=== PATIENT | male | born 1950 | race Caucasian/White ===

== ENCOUNTER 2019-04-05 16:04 | Inpatient (IN) | payer MEDICARE, BC ==
[2019-04-05 17:32] LABS: Basophils # (A) 0.1 k/uL (0-0.2); Basophils % (A) 1 %; Eosinophils # (A) 0.5 k/uL (0-0.7); Eosinophils % (A) 5 %; HCT 50.4 % (39.0-53.0); HGB 16.7 gm/dL (13.0-17.5); Lymphocytes # (A) 1.7 k/uL (1.0-4.8); Lymphocytes % (A) 18 %; MCH 30.3 pg (25.0-35.0); MCHC 33.2 g/dL (31.0-37.0); MCV 91.3 fL (80.0-100.0); Mean Platelet Volume 7.1; Monocytes # (A) 0.7 k/uL (0-1.0); Monocytes % (A) 8 %; Neutrophils # (A) 6.2 k/uL (1.3-7.7); Neutrophils % (A) 65 %; Platelet Count 238 k/uL (150-450); RBC 5.52 m/uL (4.30-5.90); RDW 13.3 % (11.5-15.5); WBC 9.5 k/uL (3.8-10.6)
[2019-04-05 17:42] LABS: ALT 45 U/L (21-72); AST 29 U/L (17-59); Albumin 4.5 g/dL (3.5-5.0); Alkaline Phosphatase 59 U/L (38-126); Anion Gap 11 mmol/L; Blood Urea Nitrogen 15 mg/dL (9-20); Calcium 9.7 mg/dL (8.4-10.2); Carbon Dioxide 18 mmol/L (22-30); Chloride 109 mmol/L (98-107); Glucose 92 mg/dL (74-99); Potassium 4.4 mmol/L (3.5-5.1); Sodium 138 mmol/L (137-145); Total Bilirubin 0.7 mg/dL (0.2-1.3); Total Protein 7.5 g/dL (6.3-8.2)
[2019-04-05 17:51] LABS: INR 0.9 (<1.2); Prothrombin Time 9.7 sec (9.0-12.0)
[2019-04-05 17:55] LABS: Partial Thromboplastin Time 19.2 sec (22.0-30.0)
--- NOTE | 2019-04-05 18:42 | ED ---
General Adult HPI - General Chief complaint: Chest Pain Stated complaint: Chest pain/pressure Time Seen by Provider: 04/05/19 18:39 Source: patient, RN notes reviewed Mode of arrival: wheelchair Limitations: no limitations - History of Present Illness Initial comments: 69-year-old male presents to the emergency department for a chief complaint of chest pain and pressure. States that this has been ongoing for about 4 weeks however does come and go. Patient states the chest pain worsens with exertion. States he does have shortness of breath on exertion as well. States that he saw his primary care provider today about this who sent him to the ER. Patient also has been nauseous and has been feeling more tired than normal. Patient has been on amoxicillin for sore throat and congestion and does have a mild cough. Denies fevers or chills. Patient denies any history of hypertension or hyperlipidemia. Denies any personal cardiac history. He has a [id number] smoking history, denies history of COPD Patient's father did from a ND in hi s 60s. Patient has no other complaints at this time including abdominal pain, headache, or visual changes. - Related Data Home Medications Medication Instructions Recorded Confirmed Amoxic-Pot Clav 500-125 mg 1 tab PO BID 04/05/19 04/05/19 [Augmentin 500-125 mg] Allergies Allergy/AdvReac Type Severity Reaction Status Date / Time No Known Allergies Allergy Verified 04/05/19 19:01 Review of Systems ROS Statement: Those systems with pertinent positive or pertinent negative responses have been documented in the HPI. ROS Other: All systems not noted in ROS Statement are negative. Past Medical History Past Medical History: No Reported History Additional Past Medical History / Comment(s): diverticulitis History of Any Multi-Drug Resistant Organisms: None Reported Past Surgical History: Hernia Repair, Orthopedic Surgery Additional Past Surgical History / Comment(s): lt shoulder and lt knee Past Anesthesia/Blood Transfusion Reactions: No Reported Reaction Past Psychological History: No Psychological Hx Reported Smoking Status: Former smoker Past Alcohol Use History: Daily Past Drug Use History: None Reported - Past Family History Father Additional Family Medical History / Comment(s): none noted General Exam Limitations: no limitations General appearance: alert, in no apparent distress Head exam: Present: atraumatic, normocephalic, normal inspection Eye exam: Present: normal appearance, PERRL, EOMI. Absent: scleral icterus, conjunctival injection, periorbital swelling ENT exam: Present: normal exam, normal oropharynx (uvula midline ), mucous membranes moist, TM's normal bilaterally, normal external ear exam Neck exam: Present: normal inspection, full ROM. Absent: tenderness, meningismus, lymphadenopathy Respiratory exam: Present: decreased breath sounds (diminished bilat). Absent: respiratory distress, wheezes, rales, rhonchi, stridor Cardiovascular Exam: Present: regular rate, normal rhythm, normal heart sounds. Absent: systolic murmur, diastolic murmur, rubs, gallop, clicks GI/Abdominal exam: Present: soft, normal bowel sounds. Absent: distended, tenderness, guarding, rebound, rigid Neurological exam: Present: alert, oriented X3, CN II-XII intact Psychiatric exam: Present: normal affect, normal mood Course Vital Signs 04/05/19 04/05/19 04/05/19 16:17 19:48 19:53 Temperature 98.1 F Pulse Rate 65 56 L 57 L Respiratory 18 Rate Blood Pressure 127/82 O2 Sat by Pulse 96 Oximetry EKG Findings - EKG Comments: EKG Findings:: Sinus bradycardia, ventricular rate 59, HI interval 194, QTC 405 Medical Decision Making - Medical Decision Making 69-year-old male with a past medical history of diverticulitis presents to the emergency department for a chief complaint of chest pressure times one month. Pressure has been intermittent. Patient is not sure what makes this better or worse but does state that when he exerts it feels worse. States that now when he walks to the bathroom at home he is starting to feel the pressure and shortness of breath. Does also admit to nausea associated with this pressure. States he is beginning to feel more weak from it. States he also gets some shortness of breath on exertion. Patient does admit to a [id number] smoking history but denies any cardiac history or COPD. Saw his primary care provider who told him he should come to the emergency department. Patient also complaining of sore throat and feels that she has phlegm in his throat. States this has been however several months but he is supposed to follow-up with ENT for this and has been in contact with his primary care provider several times. On exam patient is well-appearing. He does not appear significantly short of breath. CBC and CMP are unremarkable. Troponin is negative. Patient is pain-free at this time resting comfortably in bed, heparin will not be started. However patient will be admitted for cardiology consult. Dr. Clark spoke with Dr. Marvin who accepts this admission. - Lab Data Result diagrams: 04/05/19 17:25 04/05/19 17:25 Lab Results 04/05/19 04/05/19 04/05/19 Range/Units 17:25 17:25 17:25 WBC 9.5 (3.8-10.6) k/uL RBC 5.52 (4.30-5.90) m/uL Hgb 16.7 (13.0-17.5) gm/dL Hct 50.4 (39.0-53.0) % MCV 91.3 (80.0-100.0) fL MCH 30.3 (25.0-35.0) pg MCHC 33.2 (31.0-37.0) g/dL RDW 13.3 (11.5-15.5) % Plt Count 238 (150-450) k/uL Neutrophils % 65 % Lymphocytes % 18 % Monocytes % 8 % Eosinophils % 5 % Basophils % 1 % Neutrophils # 6.2 (1.3-7.7) k/uL Lymphocytes # 1.7 (1.0-4.8) k/uL Monocytes # 0.7 (0-1.0) k/uL Eosinophils # 0.5 (0-0.7) k/uL Basophils # 0.1 (0-0.2) k/uL PT 9.7 (9.0-12.0) sec INR 0.9 (<1.2) APTT 19.2 L (22.0-30.0) sec Sodium 138 (137-145) mmol/L Potassium 4.4 (3.5-5.1) mmol/L Chloride 109 H (98-107) mmol/L Carbon Dioxide 18 L (22-30) mmol/L Anion Gap 11 mmol/L BUN 15 (9-20) mg/dL Creatinine 0.77 (0.66-1.25) mg/dL Est GFR (CKD-EPI)AfAm >90 (>60 ml/min/1.73 sqM) Est GFR (CKD-EPI)NonAf >90 (>60 ml/min/1.73 sqM) Glucose 92 (74-99) mg/dL Calcium 9.7 (8.4-10.2) mg/dL Total Bilirubin 0.7 (0.2-1.3) mg/dL AST 29 (17-59) U/L ALT 45 (21-72) U/L Alkaline Phosphatase 59 (38-126) U/L Troponin I (0.000-0.034) ng/mL Total Protein 7.5 (6.3-8.2) g/dL Albumin 4.5 (3.5-5.0) g/dL 04/05/19 Range/Units 17:25 WBC (3.8-10.6) k/uL RBC (4.30-5.90) m/uL Hgb (13.0-17.5) gm/dL Hct (39.0-53.0) % MCV (80.0-100.0) fL MCH (25.0-35.0) pg MCHC (31.0-37.0) g/dL RDW (11.5-15.5) % Plt Count (150-450) k/uL Neutrophils % % Lymphocytes % % Monocytes % % Eosinophils % % Basophils % % Neutrophils # (1.3-7.7) k/uL Lymphocytes # (1.0-4.8) k/uL Monocytes # (0-1.0) k/uL Eosinophils # (0-0.7) k/uL Basophils # (0-0.2) k/uL PT (9.0-12.0) sec INR (<1.2) APTT (22.0-30.0) sec Sodium (137-145) mmol/L Potassium (3.5-5.1) mmol/L Chloride (98-107) mmol/L Carbon Dioxide (22-30) mmol/L Anion Gap mmol/L BUN (9-20) mg/dL Creatinine (0.66-1.25) mg/dL Est GFR (CKD-EPI)AfAm (>60 ml/min/1.73 sqM) Est GFR (CKD-EPI)NonAf (>60 ml/min/1.73 sqM) Glucose (74-99) mg/dL Calcium (8.4-10.2) mg/dL Total Bilirubin (0.2-1.3) mg/dL AST (17-59) U/L ALT (21-72) U/L Alkaline Phosphatase (38-126) U/L Troponin I <0.012 (0.000-0.034) ng/mL Total Protein (6.3-8.2) g/dL Albumin (3.5-5.0) g/dL Disposition Clinical Impression: Chest pressure Disposition: ADMITTED IP TO THIS HOSP Condition: Fair Is patient prescribed a controlled substance at d/c from ED?: No Referrals: Lyle Garces MD [Primary Care Provider] - 1-2 days Time of Disposition: 21:02
[2019-04-05] MEDS ORDERED: IPRATROPIUM-ALBUTEROL 3 ML NEB INHALATION STA (18:56)
--- NOTE | 2019-04-05 20:37 | XR ---
EXAMINATION: XR chest 2V DATE AND TIME: 04/05/2019 7:16 PM CLINICAL INDICATION: PHH; Pain TECHNIQUE: Departmental protocol COMPARISON: 07/07/2010 FINDINGS: The lungs are clear. The pleural spaces are negative. The cardiac silhouette is mildly enlarged. The remainder of the mediastinal silhouette is unremarkabl e. The skeletal structures and soft tissues are negative for acute findings. IMPRESSION: NO ACUTE PROCESS.
[2019-04-05] MEDS ORDERED: ASPIRIN 325 MG TAB PO STA (20:43)
[2019-04-05] MEDS ORDERED: NITROGLYCERIN SL TABS 0.4 MG TAB SUBLINGUAL PRN (21:05)
[2019-04-06 07:32] LABS: Cholesterol 182 mg/dL (<200); HDL Cholesterol 43 mg/dL (40-60); LDL Cholesterol,Calculated 112 mg/dL (0-99); Triglycerides 135 mg/dL (<150)
[2019-04-06] MEDS ORDERED: AMINOPHYLLINE 500 MG/20 ML VIAL IV PRN (07:55)
[2019-04-06] MEDS ORDERED: CAFFEINE CITRATE 60 MG/3 ML VIAL IV PRN (07:55)
[2019-04-06] MEDS ORDERED: SODIUM CHLORIDE 0.9% IV ONE (08:00)
[2019-04-06] MEDS ORDERED: DIPYRIDAMOLE IV ONE (08:00)
--- NOTE | 2019-04-06 10:02 | P.CRDCN ---
History of Present Illness History of present illness: This is a pleasant 69-year-old male with no significant past medical history. He states he quit smoking cigarettes approximately 3 years ago. His father had his first cardiac event in his early 60s. He denies personal history of coronary artery disease, hypertension, dyslipidemia or diabetes mellitus. He has never seen a director instrumentation for any reason. We have been asked to see him in consultation secondary to chest discomfort and shortness of breath. He states for the previous 4-6 weeks he has noticed ongoing and increasing shortness of breath with exertion. He states he feels as though it's hard for him to get in a deep breath when he feels he needs one. This has been associated with increased fatigue and overall generalized weakness which is very abnormal for him. Then last week he started feeling a heavy pressure sensation in the midsternal region this pain in his chest was intermittent and not associated with exertion. He felt though the chest tightness, sometimes at rest when he was trying to catch his breath. He did have intermittent episodes of nausea with no vomiting. He denies any palpitations or dizziness. He also describes an odd sensation in the back of his throat he feels like he has increased mucous production and is unable to clear his throat. This has been going on for about 4-6 weeks he's been following with his primary care physician and been on a course of antibiotics but doesn't seem to be helping. He also states he has been under significant stress in the last few months as his has been diagnosed with lymphoma and started chemotherapy last week. EKG reveals sinus bradycardia heart rate of 59 nonspecific changes in the inferior leads. Chest x-ray is negative for an acute cardiopulmonary process. Laboratory data reviewed, WBC 9.5, hemoglobin 16.7, platelets 238, sodium 138, potassium 4.4, creatinine 0.77, cardiac enzymes negative 3, and T proBNP 48, LDL 112, HDL 43. He currently takes no cardiac medications. At the time of my exam: CONSTITUTIONAL: Denies fever. Denies chills. EYES: Denies blurred vision. Denies vision changes. Denies eye pain. EARS, NOSE, MOUTH & THROAT: Denies headache. Complains of sore throat. Denies ear pain. Complains of feeling something in the back of his throat like increased mucous. CARDIOVASCULAR: Denies chest pain. Complains of shortness of breath. Denies orthopnea. Denies PND. Denies palpitations. RESPIRATORY: Denies cough. GASTROINTESTINAL: Denies abdominal pain. Denies diarrhea. Denies constipation. Denies nausea. Denies vomiting. MUSCULOSKELETAL: Denies myalgias. INTEGUMENTARY: Denies pruitis. Denies rash. NEUROLOGIC: Denies numbness. Denies tingling. Denies weakness. PSYCHIATRIC: Denies anxiety. Denies depression. ENDOCRINE: Denies fatigue. Denies weight change. Denies polydipsia. Denies polyurina. GENITOURINARY: Denies burning, hematuria or urgency with micturation. HEMATOLOGIC: Denies history of anemia. Denies bleeding. Blood pressure 148/70 heart rate 58 afebrile maintaining oxygen saturation on nasal cannula GENERAL: This is a 69-year-old male in no apparent distress at the time of my examination. HEENT: Head is atraumatic, normocephalic. Pupils are equal, round. Sclerae anicteric. Conjunctivae are clear. Mucous membranes of the mouth are moist. Neck is supple. There is no jugular venous distention. No carotid bruit is heard. LUNGS: Clear to auscultation no wheezes, rales or rhonchi. No chest wall tenderness is noted on palpation or with deep breathing. HEART: Regular rate and rhythm without murmurs, rubs or gallops. S1 and S2 heard. ABDOMEN: Soft, nontender. Bowel sounds are heard. No organomegaly noted. EXTREMITIES: No evidence of peripheral edema and no calf tenderness noted. VASCULAR: Radial and dorsalis pedis pulses palpated, no evidence of clubbing. NEUROLOGIC: Patient is awake, alert and oriented x3. ASSESSMENT Chest pain and shortness of breath, an acute coronary event has been ruled out. Remote history of diverticulitis Former nicotine dependence, quit 3 years ago Daily alcohol intake PLAN An acute coronary event has been ruled out. Obtain 2-D echocardiogram and Doppler study to assess cardiac structure and function. Perform Persantine stress test to assess for reversible cardiac ischemia. Initiate on losartan 25 mg daily for optimal blood pressure control. Check ultrasound of the abdomen. Ongoing smoking cessation and alcohol cessation recommended. Consider possible anti-histamine for probable post-nasal drip. Further recommendations to follow. Thank you kindly for this consultation. Nurse Practitioner note has been reviewed, I agree with a documented findings and plan of care. Patient was seen and examined. Past Medical History Past Medical History: No Reported History Additional Past Medical History / Comment(s): diverticulitis History of Any Multi-Drug Resistant Organisms: None Reported Past Surgical History: Hernia Repair, Orthopedic Surgery Additional Past Surgical History / Comment(s): lt shoulder and lt knee Past Anesthesia/Blood Transfusion Reactions: No Reported Reaction Past Psychological History: No Psychological Hx Reported Smoking Status: Former smoker Past Alcohol Use History: Daily Past Drug Use History: None Reported - Past Family History Father Additional Family Medical History / Comment(s): none noted Medications and Allergies Home Medications Medication Instructions Recorded Confirmed Type Amoxic-Pot Clav 500-125 mg 1 tab PO BID 04/05/19 04/05/19 History [Augmentin 500-125 mg] Allergies Allergy/AdvReac Type Severity Reaction Status Date / Time No Known Allergies Allergy Verified 04/05/19 19:01 Physical Exam Vitals: Vital Signs Temp Pulse Resp BP Pulse Ox 04/06/19 03:00 50 L 11 L 104/65 95 04/06/19 02:30 30 H 103/57 95 04/06/19 02:00 53 L 12 118/79 91 L 04/06/19 01:30 56 L 20 122/83 95 04/06/19 01:00 58 L 20 118/62 93 L 04/06/19 00:30 54 L 16 118/80 93 L 04/06/19 00:00 63 30 H 114/65 96 04/05/19 23:30 7 L 103/79 96 04/05/19 23:00 52 L 13 118/81 95 04/05/19 22:30 55 L 8 L 109/58 94 L 04/05/19 22:00 56 L 5 L 123/75 95 04/05/19 21:36 67 18 131/108 95 04/05/19 21:30 56 L 16 95 04/05/19 21:10 58 L 16 111/83 94 L 04/05/19 20:50 57 L 16 138/92 94 L 04/05/19 20:30 64 15 140/88 96 04/05/19 19:53 57 L 04/05/19 19:50 54 L 17 135/87 98 04/05/19 19:48 56 L 04/05/19 19:30 57 L 13 127/87 92 L 04/05/19 19:10 57 L 14 156/92 04/05/19 19:00 60 15 151/107 93 L 04/05/19 16:17 98.1 F 65 18 127/82 96 Intake and Output 04/05/19 04/06/19 04/06/19 22:59 06:59 14:59 Other: Weight 114.305 kg Results 04/05/19 17:25 04/05/19 17:25 Cardiac Enzymes 04/05/19 04/05/19 04/06/19 Range/Units 17:25 17:25 00:21 AST 29 (17-59) U/L Troponin I <0.012 <0.012 (0.000-0.034) ng/mL Coagulation 04/05/19 Range/Units 17:25 PT 9.7 (9.0-12.0) sec APTT 19.2 L (22.0-30.0) sec Lipids 04/06/19 Range/Units 06:38 Triglycerides 135 (<150) mg/dL Cholesterol 182 (<200) mg/dL HDL Cholesterol 43 (40-60) mg/dL CBC 04/05/19 Range/Units 17:25 WBC 9.5 (3.8-10.6) k/uL RBC 5.52 (4.30-5.90) m/uL Hgb 16.7 (13.0-17.5) gm/dL Hct 50.4 (39.0-53.0) % Plt Count 238 (150-450) k/uL Comprehensive Metabolic Panel 04/05/19 Range/Units 17:25 Sodium 138 (137-145) mmol/L Potassium 4.4 (3.5-5.1) mmol/L Chloride 109 H (98-107) mmol/L Carbon Dioxide 18 L (22-30) mmol/L BUN 15 (9-20) mg/dL Creatinine 0.77 (0.66-1.25) mg/dL Glucose 92 (74-99) mg/dL Calcium 9.7 (8.4-10.2) mg/dL AST 29 (17-59) U/L ALT 45 (21-72) U/L Alkaline Phosphatase 59 (38-126) U/L Total Protein 7.5 (6.3-8.2) g/dL Albumin 4.5 (3.5-5.0) g/dL Current Medications Generic Name Dose Route Start Last Admin Trade Name Freq PRN Reason Stop Dose Admin Aspirin 325 mg 04/06/19 09:00 Aspirin PO DAILY VINNY Nitroglycerin 0.4 mg 04/05/19 21:05 Nitrostat SUBLINGUAL Q5M PRN Chest Pain Intake and Output 04/05/19 04/06/19 04/06/19 22:59 06:59 14:59 Other: Weight 114.305 kg 04/05/19 17:25 04/05/19 17:25
[2019-04-06] MEDS ORDERED: AMINOPHYLLINE 500 MG/20 ML VIAL IV ONE (10:10)
--- NOTE | 2019-04-06 10:39 | US ---
EXAMINATION TYPE: US abdomen complete DATE OF EXAM: 04/06/2019 COMPARISON: CT CLINICAL HISTORY: nausea. EXAM MEASUREMENTS: Liver Length: 17.8 cm Gallbladder Wall: 0.2 cm CBD: 0.4 cm Spleen: 10.0 x 9.5 x 3.5 cm Right Kidney: 10.8 x 6.0 x 5.2 cm Left Kidney: 11.8 x 4.9 x 4.6 cm US exam is technically limited due to large body habitus and overlying bowel gas. Pancreas: Obscured by bowel gas Liver: fatty liver as vessels are not identified, and organ is hyperechoic Gallbladder: wnl Evidence for sonographic Morrison's sign: no CBD: wnl Spleen: granulomatous and hyperechoic vessel doe Right Kidney: No hydronephrosis or masses seen Left Kidney: No hydronephrosis or masses seen Upper IVC: wnl Abd Aorta: size is wnl, but aorta is limitedly seen due to overlying bowel gas and large body habitu s IMPRESSION: 1. Hepatic steatosis.
--- NOTE | 2019-04-06 11:16 | NM ---
EXAMINATION TYPE: NM stress persantine cardiolit DATE OF EXAM: 04/06/2019 COMPARISON: NONE HISTORY: Precordial chest pain and abnormal EKG TECHNIQUE: After the intravenous administration of 10.77 mCi Tc 99m Sestamibi - Cardiolite resting S PECT images acquired 45 minutes post injection. The patient received 0.4mg Lexiscan, 25.6 mCi Tc 99m Sestamibi - Stress images obtained [address] injection FINDINGS: Review of stress and rest SPECT images demonstrates predominantly fixed defect involving the inferior wall however does appear to worsen following stress imaging. Stress-induced ischemia is not excluded . Gated analysis shows normal wall motion with an estimated left ventricular ejection fraction of 47 %. IMPRESSION: I cannot exclude stress-induced ischemia inferior wall.
[2019-04-06] MEDS: ASPIRIN 325 MG TAB PO SCH (11:20)
[2019-04-06 13:41] VITALS: BMI 35.1
--- NOTE | 2019-04-06 14:36 | P.HPIM ---
History of Present Illness H&P Date: 04/06/19 Chief Complaint: Nausea, fatigue, heavy breathing This is a 69-year-old male patient of Dr. Lyle Garces with past medical history of diverticulitis, chronic sinus drainage, remote history of tobacco use and dependence. Patient gives history that for at least 1 month he has had nausea, fatigue and "heavy breathing" He also complains of weakness in his arms and they feel heavy. He denies any weakness in his legs. He has some left arm numbness when he is driving which may be positional. 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 He went to see Dr. Garces yesterday and he has been under treatment for sinus infection completed Z-Charles and then started Augmentin. He states for the past 4-5 months he has had trouble clearing his throat. When in the office, patient was evaluated and sent into [facility] emergency center for evaluation. EKG was a sinus bradycardia with nonspecific changes in the inferior leads. Chest x-ray negative for acute cardiopulmonary process. White count was 9.5, hemoglobin 16.7, electrolytes within normal limits, creatinine 0.77. Troponin negative on 3 draws. ProBNP 48. LDL 112, HDL 43. Patient was placed in the observation unit and cardiology consult was requested. Echocardiogram has been ordered and report is pending. Abdominal ultrasound revealed hepatic steatosis. Persantine stress test was ordered and report is pending. Review of Systems All systems: negative Constitutional: Reports fatigue, Reports lethargy, Reports malaise, Denies chills, Denies fever Eyes: denies blurred vision, denies pain Ears, nose, mouth and throat: Reports post-nasal drip, Reports sinus pain, Reports sinus pressure, Denies dental pain, Denies dysphagia, Denies epistaxis, Denies headache, Denies mouth pain, Denies sore throat Cardiovascular: Reports decreased exercise tolerance, Reports dyspnea on exertion, Reports shortness of breath, Denies chest pain, Denies edema, Denies lightheadedness, Denies syncope Respiratory: Reports dyspnea, Reports snoring, Denies cough, Denies cough with sputum, Denies excessive sputum, Denies hemoptysis, Denies home oxygen, Denies sleep apnea, Denies wheezing Gastrointestinal: Denies abdominal pain, Denies diarrhea, Denies nausea, Denies vomiting Genitourinary: Denies dysuria, Denies urinary frequency Musculoskeletal: Denies myalgias Integumentary: Denies pruritus, Denies rash, Denies wounds Neurological: Denies aphasia, Denies change in mentation, Denies change in speech, Denies gait dysfunction, Denies numbness, Denies seizures, Denies syncope, Denies weakness Psychiatric: Denies anxiety, Denies depression Endocrine: Denies fatigue, Denies weight change Past Medical History Past Medical History: No Reported History Additional Past Medical History / Comment(s): diverticulitis History of Any Multi-Drug Resistant Organisms: None Reported Past Surgical History: Hernia Repair, Orthopedic Surgery Additional Past Surgical History / Comment(s): lt shoulder and lt knee, colonoscopy 3 years ago with polypectomy, possible precancerous. Past Anesthesia/Blood Transfusion Reactions: No Reported Reaction Past Psychological History: No Psychological Hx Reported Smoking Status: Former smoker Past Alcohol Use History: Daily Additional Past Alcohol Use History / Comment(s): Patient was a smoker one pack per day for 40 years ago with her years ago. Patient normally drinks 2-4 beers per day but has decreased over the past month. He drinks 4-5 cups coffee per day. He lives at home with his . 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 Past Drug Use History: None Reported - Past Family History Father Additional Family Medical History / Comment(s): Father at age 72 from emphysema with history of a myocardial infarction in his 60s. Mother Additional Family Medical History / Comment(s): Mother in her 80s from old age. Sister(s) Additional Family Medical History / Comment(s): Patient has 6 sisters that are all . 2 were twins in motor vehicle accident. Others have from old age. No history of cancers. Patient does not have any brothers. Patient has 3 children, 2 boys and one girl with no major medical problems. Medications and Allergies Home Medications Medication Instructions Recorded Confirmed Type Amoxic-Pot Clav 500-125 mg 1 tab PO BID 04/05/19 04/05/19 History [Augmentin 500-125 mg] Allergies Allergy/AdvReac Type Severity Reaction Status Date / Time No Known Allergies Allergy Verified 04/05/19 19:01 Physical Exam Vitals: Vital Signs Temp Pulse Resp BP Pulse Ox 04/06/19 12:19 62 18 116/85 96 04/06/19 11:20 71 18 156/86 97 04/06/19 09:00 58 L 18 148/70 100 04/06/19 08:00 60 18 147/98 98 04/06/19 07:00 56 L 18 138/90 100 04/06/19 03:00 50 L 11 L 104/65 95 04/06/19 02:30 30 H 103/57 95 04/06/19 02:00 53 L 12 118/79 91 L 04/06/19 01:30 56 L 20 122/83 95 04/06/19 01:00 58 L 20 118/62 93 L 04/06/19 00:30 54 L 16 118/80 93 L 04/06/19 00:00 63 30 H 114/65 96 04/05/19 23:30 7 L 103/79 96 04/05/19 23:00 52 L 13 118/81 95 04/05/19 22:30 55 L 8 L 109/58 94 L 04/05/19 22:00 56 L 5 L 123/75 95 04/05/19 21:36 67 18 131/108 95 04/05/19 21:30 56 L 16 95 04/05/19 21:10 58 L 16 111/83 94 L 04/05/19 20:50 57 L 16 138/92 94 L 04/05/19 20:30 64 15 140/88 96 04/05/19 19:53 57 L 04/05/19 19:50 54 L 17 135/87 98 04/05/19 19:48 56 L 04/05/19 19:30 57 L 13 127/87 92 L 04/05/19 19:10 57 L 14 156/92 04/05/19 19:00 60 15 151/107 93 L 04/05/19 16:17 98.1 F 65 18 127/82 96 Intake and Output 04/05/19 04/06/19 04/06/19 22:59 06:59 14:59 Other: Weight 114.305 kg - Constitutional General appearance: no acute distress, obese - EENT Eyes: PERRLA, normal appearance ENT: hard of hearing - Neck Neck: no lymphadenopathy - Respiratory Respiratory: bilateral: CTA - Cardiovascular Rhythm: regular Heart sounds: normal: S1, S2 Abnormal Heart Sounds: no systolic murmur, no diastolic murmur - Gastrointestinal General gastrointestinal: normal bowel sounds, soft, no tenderness - Integumentary Integumentary: normal turgor - Neurologic Neurologic: CNII-XII intact - Musculoskeletal Musculoskeletal: no right sided weakness, no left sided weakness - Psychiatric Psychiatric: A&O x's 3, appropriate affect, intact judgment & insight Results CBC & Chem 7: 04/05/19 17:25 04/05/19 17:25 Labs: Abnormal Lab Results - Last 24 Hours (Table) 04/05/19 04/05/19 04/06/19 Range/Units 17:25 17:25 06:38 APTT 19.2 L (22.0-30.0) sec Chloride 109 H (98-107) mmol/L Carbon Dioxide 18 L (22-30) mmol/L LDL Cholesterol, Calc 112 H (0-99) mg/dL Thrombosis Risk Factor Assmnt - DVT/VTE Prophylaxis DVT/VTE Prophylaxis: Pharmacologic Prophylaxis ordered, Mechanical Prophylaxis ordered Assessment and Plan Plan: 1. Fatigue, weakness in arms, difficulty breathing. Acute coronary syndrome ruled out by cardiology. Troponins have been negative. Persantine stress test, echocardiogram. Aspirin, Lipitor. 2. Hypertension. Patient started on losartan by cardiology. 3. Sinus infection recently treated with 2 courses of antibiotics. Recommend Flonase and Zyrtec for chronic sinus drainage. 4. Remote history of tobacco use and dependence, patient quit 3 years ago. 5. Alcohol abuse. Patient usually drinks 2-4 beers per day but decreased over the past month. 6. History of diverticulitis, stable. Polyps on last colonoscopy 3 years ago. 7. Suspected sleep apnea. Patient will need outpatient sleep study done. Patient placed on the observation unit. Discharge plan: Impression and plan of care have been directed as dictated by the signing physician. Rebeca Lancatser nurse practitioner acting as scribe for signing [email or web address].
[2019-04-06] MEDS ORDERED: SODIUM CHLORIDE 0.9% 1,000 ML in EMPTY BAG 1 BAG IV ONE (14:37)
[2019-04-06] MEDS ORDERED: ALPRAZolam 0.25 MG TAB PO PRN (14:37)
[2019-04-06] MEDS ORDERED: ALPRAZolam 0.5 MG TAB PO PRN (14:37)
--- NOTE | 2019-04-06 14:50 | P.PN ---
Progress Note - Text Persantine stress test reveals evidence of stress-induced ischemia along the inferior wall. This has been discussed with the patient and his in great detail. We recommend proceeding with cardiac catheterization to assess for obstructive coronary artery disease. I have discussed the risks, benefits and alternative therapies for the above-mentioned procedure and for both sedation/analgesia as well as necessary blood product administration, if indicated, as they pertain to this patient. The patient has indicated understanding and acceptance of the risks and procedures discussed. Questions have been answered appropriately and he is agreeable to move forward with the above stated procedure. He will be nothing by mouth after midnight tonight and is boarded for tomorrow with Dr. Christopher.
[2019-04-06] MEDS: LORATADINE 10 MG TAB PO SCH (14:54)
[2019-04-06] MEDS: FLUTICASONE 50MCG/SPRAY NASAL 16GM EA NOSTRIL SCH (14:55)
[2019-04-06] MEDS: LOSARTAN 25 MG TAB PO SCH (14:55)
--- NOTE | 2019-04-06 16:20 | ECHOF ---
Referral Reason:cp, sob MEASUREMENTS -------- HEIGHT: 180.3 cm WEIGHT: 114.3 kg BP: 138/90 RVIDd: 3.6 cm (< 3.3) IVSd: 1.2 cm (0.6 - 1.1) LVIDd: 4.0 cm (3.9 - 5.3) LVPWd: 1.3 cm (0.6 - 1.1) IVSs: 1.7 cm LVIDs: 2.7 cm LVPWs: 2.1 cm LA Diam: 3.7 cm (2.7 - 3.8) LAESV Index (A-L): 16.96 ml/m Ao Diam: 3.8 cm (2.0 - 3.7) AV Cusp: 2.1 cm (1.5 - 2.6) MV EXCURSION: 14.013 mm (> 18.000) MV EF SLOPE: 42 mm/s (70 - 150) EPSS: 1.1 cm MV E Pedro Pablo: 0.71 m/s MV DecT: 339 ms MV A Pedro Pablo: 0.98 m/s MV E/A Ratio: 0.73 FINDINGS -------- Sinus rhythm. This was a technically difficult study with suboptimal parasternal views. The left ventricular size is normal. There is mild concentric left ventricular hypertrophy. Overa ll left ventricular systolic function is normal with, an EF between 60 - 65 %. The right ventricle is mildly enlarged. Normal LA size by volume 22+/-6 ml/m2. The right atrium is normal in size. Interatrial and interventricular septum intact. There is mild aortic valve sclerosis. The mitral valve is normal. The tricuspid valve appears structurally normal. The pulmonic valve was not well visualized. The aortic root is dilated measuring 3.8cm. The inferior vena cava is mildly dilated. There is no pericardial effusion. CONCLUSIONS -------- 1. Sinus rhythm. 2. This was a technically difficult study with suboptimal parasternal views. 3. The left ventricular size is normal. 4. There is mild concentric left ventricular hypertrophy. 5. Overall left ventricular systolic function is normal with, an EF between 60 - 65 %. 6. The right ventricle is mildly enlarged. 7. Normal LA size by volume 22+/-6 ml/m2. 8. The right atrium is normal in size. 9. Interatrial and interventricular septum intact. 10. There is mild aortic valve sclerosis. 11. The mitral valve is normal. 12. The tricuspid valve appears structurally normal. 13. The pulmonic valve was not well visualized. 14. The aortic root is dilated measuring 3.8cm. 15. The inferior vena cava is mildly dilated. 16. There is no pericardial effusion. FINISHING OPERATOR: Faviola Stewart RDCS
[2019-04-06] MEDS: SODIUM CHLORIDE 0.65% NASAL SPRAY 44 ML BTL NASAL SCH ×2 (17:12→20:28)
--- NOTE | 2019-04-06 18:23 | EST ---
EXERCISE STRESS DATE OF SERVICE: 04/06/2019 AGE: 69 SEX: Male HT: 5'11" WT: 252 pounds PROTOCOL: Persantine Cardiolite STAGE: DURATION OF EXERCISE: HEART RATE REST: 60 BLOOD PRESSURE REST: 130/88 MAXIMUM HEART RATE ACHIEVED: 80 MAXIMUM BLOOD PRESSURE: 146/86 85% MPHR: 100% MPHR: METS: INDICATIONS: Chest pain, shortness of breath. CLINICAL INFORMATION: STRESS DATA: Pre-testing physical examination showed a heart rate of 60, pressure 130/88 mmHg. Baseline EKG showed sinus mechanism. The patient was given 65 mg. The max heart rate was 76 beats per minute. Maximum pressure 146/86 mmHg. Clinically the patient was asymptomatic and the EKG did not show any significant ST or T-wave abnormalities concerning for ischemia. CONCLUSION: 1. Nondiagnostic electrocardiogram stress testing in response to Persantine. 2. Please follow up on the Cardiolite portion on separate report. MMODL / IJN: [id number] /
[2019-04-06] MEDS: ATORVASTATIN 40 MG TAB PO SCH (20:11)
[2019-04-07] MEDS: ASPIRIN 325 MG TAB PO SCH (06:15)
[2019-04-07] MEDS: SODIUM CHLORIDE 0.65% NASAL SPRAY 44 ML BTL NASAL SCH ×3 (06:15→20:06)
[2019-04-07] MEDS: LOSARTAN 25 MG TAB PO SCH (06:16)
[2019-04-07] MEDS: FLUTICASONE 50MCG/SPRAY NASAL 16GM EA NOSTRIL SCH (06:16)
[2019-04-07] MEDS: LORATADINE 10 MG TAB PO SCH (06:16)
--- NOTE | 2019-04-07 07:48 | P.PN ---
Subjective Progress Note Date: 04/07/19 Principal diagnosis: Chest discomfort This is a pleasant 69-year-old gentleman who presented to the hospital with a chest discomfort and underwent a stress test came in to be concerning for ischemia. Because of that heart catheterization was advised. I did see the patient today and I did explain to him the procedure in details. The patient is in fully understanding about the next step which is performing a coronary angiogram later on today. Objective - Vital Signs Vital signs: Vital Signs Temp 98.0 F 04/07/19 04:56 Pulse 77 04/07/19 04:56 Resp 16 04/07/19 04:56 BP 138/74 04/07/19 04:56 Pulse Ox 98 04/07/19 04:56 Intake & Output 04/06/19 04/07/19 04/07/19 18:59 06:59 18:59 Intake Total 480 Balance 480 Intake: Oral 480 Other: Voiding Method Toilet Toilet # Voids 1 1 - Constitutional General appearance: Present: no acute distress - Respiratory Respiratory: bilateral: CTA - Cardiovascular Rhythm: regular Heart sounds: normal: S1, S2 - Labs CBC & Chem 7: 04/05/19 17:25 04/05/19 17:25 Assessment and Plan Assessment: Assessment #1 chest discomfort #2 abnormal stress test Plan #1 proceeding with coronary angiogram #2 follow-up with the patient
--- NOTE | 2019-04-07 14:23 | P.PN ---
Subjective Progress Note Date: 04/07/19 This is a 69-year-old male patient of Dr. Lyle Garces with past medical history of diverticulitis, chronic sinus drainage, remote history of tobacco use and dependence. Patient gives history that for at least 1 month he has had nausea, fatigue and "heavy breathing" He also complains of weakness in his arms and they feel heavy. He denies any weakness in his legs. He has some left arm numbness when he is driving which may be positional. 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 He went to see Dr. Garces yesterday and he has been under treatment for sinus infection completed Z-Charles and then started Augmentin. He states for the past 4-5 months he has had trouble clearing his throat. When in the office, patient was evaluated and sent into [facility] emergency center for evaluation. EKG was a sinus bradycardia with nonspecific changes in the inferior leads. Chest x-ray negative for acute cardiopulmonary process. White count was 9.5, hemoglobin 16.7, electrolytes within normal limits, creatinine 0.77. Troponin negative on 3 draws. ProBNP 48. LDL 112, HDL 43. Patient was placed in the observation unit and cardiology consult was requested. Echocardiogram has been ordered and report is pending. Abdominal ultrasound revealed hepatic steatosis. Persantine stress test was ordered and report is pending. 04/07: Persantine stress test was abnormal yesterday and patient is scheduled for heart catheterization today with Dr. Christopher but unfortunately this was delayed until tomorrow. Patient states that he continues to have heaviness in his arms and occasionally feels winded and nauseated. He states he was able to walk to the shower and back. He had a bowel movement yesterday. He denies any abdominal pain, nausea or vomiting. He has been afebrile, heart rate 62, blood pressure 111/58, pulse ox 94% on room air. Triglycerides 135, cholesterol 182, LDL 112, HDL 43. Objective - Vital Signs Vital signs: Vital Signs Temp 98.1 F 04/07/19 08:00 Pulse 62 04/07/19 08:00 Resp 15 04/07/19 08:00 BP 111/58 04/07/19 08:00 Pulse Ox 94 L 04/07/19 08:00 Intake & Output 04/06/19 04/07/19 04/07/19 18:59 06:59 18:59 Intake Total 480 Balance 480 Weight 114.3 kg Intake: Oral 480 Other: Voiding Method Toilet Toilet Toilet # Voids 1 1 1 - Exam Review of Systems Constitutional: Reports fatigue, Reports lethargy, Reports malaise, Denies chills, Denies fever Eyes: denies blurred vision, denies pain Ears, nose, mouth and throat: Reports post-nasal drip, Reports sinus pain, Reports sinus pressure, Denies dental pain, Denies dysphagia, Denies epistaxis, Denies headache, Denies mouth pain, Denies sore throat Cardiovascular: Reports decreased exercise tolerance, Reports dyspnea on exertion, Reports shortness of breath, Denies chest pain, Denies edema, Denies lightheadedness, Denies syncope Respiratory: Reports dyspnea, Reports snoring, Denies cough, Denies cough with sputum, Denies excessive sputum, Denies hemoptysis, Denies home oxygen, Denies sleep apnea, Denies wheezing Gastrointestinal: Denies abdominal pain, Denies diarrhea, Denies nausea, Denies vomiting Genitourinary: Denies dysuria, Denies urinary frequency Musculoskeletal: Denies myalgias Integumentary: Denies pruritus, Denies rash, Denies wounds Neurological: Denies aphasia, Denies change in mentation, Denies change in speech, Denies gait dysfunction, Denies numbness, Denies seizures, Denies syncope, Denies weakness Psychiatric: Denies anxiety, Denies depression Endocrine: Denies fatigue, Denies weight change Physical exam: - Constitutional General appearance: no acute distress, obese, resting comfortably in bed. - EENT Eyes: PERRLA, normal appearance ENT: hard of hearing - Neck Neck: no lymphadenopathy - Respiratory Respiratory: bilateral: CTA - Cardiovascular Rhythm: regular Heart sounds: normal: S1, S2 Abnormal Heart Sounds: no systolic murmur, no diastolic murmur - Gastrointestinal General gastrointestinal: normal bowel sounds, soft, no tenderness - Integumentary Integumentary: normal turgor - Neurologic Neurologic: CNII-XII intact - Musculoskeletal Musculoskeletal: no right sided weakness, no left sided weakness - Psychiatric Psychiatric: A&O x's 3, appropriate affect, intact judgment & insight - Labs CBC & Chem 7: 04/05/19 17:25 05/28/19 17:25 Assessment and Plan Plan: 1. Fatigue, weakness in arms, difficulty breathing. Acute coronary syndrome ruled out by cardiology. Troponins have been negative. Persantine stress test positive, echocardiogram. Aspirin, Lipitor. Heart catheterization scheduled for Thursday. 2. Hypertension. Patient started on losartan by cardiology. 3. Sinus infection recently treated with 2 courses of antibiotics. Recommend Flonase and Zyrtec for chronic sinus drainage. 4. Remote history of tobacco use and dependence, patient quit 3 years ago. 5. Alcohol abuse. Patient usually drinks 2-4 beers per day but decreased over the past month. 6. History of diverticulitis, stable. Polyps on last colonoscopy 3 years ago. 7. Suspected sleep apnea. Patient will need outpatient sleep study done. Discharge plan: Return home Impression and plan of care have been directed as dictated by the signing physician. Rebeca Lancaster nurse practitioner acting as scribe for signing physician.
[2019-04-07] MEDS ORDERED: ACETAMINOPHEN TAB 325 MG TAB PO PRN (19:18)
[2019-04-07] MEDS: ATORVASTATIN 40 MG TAB PO SCH (19:51)
[2019-04-08] MEDS: ASPIRIN 325 MG TAB PO SCH (02:43)
[2019-04-08] MEDS ORDERED: ASPIRIN 325 MG TAB PO ONE (06:00)
[2019-04-08] MEDS ORDERED: ATORVASTATIN 40 MG TAB PO ONE (06:00)
[2019-04-08] MEDS: LOSARTAN 25 MG TAB PO SCH (06:25)
[2019-04-08] MEDS: LORATADINE 10 MG TAB PO SCH (06:25)
[2019-04-08] MEDS: FLUTICASONE 50MCG/SPRAY NASAL 16GM EA NOSTRIL SCH (06:25)
[2019-04-08] MEDS: SODIUM CHLORIDE 0.65% NASAL SPRAY 44 ML BTL NASAL SCH ×2 (06:25→18:47)
[2019-04-08] MEDS ORDERED: IV FLUID CONTINUATION 1,000 ML IV ONE (07:09)
--- NOTE | 2019-04-08 07:39 | P.PN ---
Subjective Progress Note Date: 04/08/19 Principal diagnosis: Chest discomfort This is a pleasant 69-year-old gentleman who presented to the hospital with a chest discomfort and underwent a stress test came in to be concerning for ischemia. Because of that heart catheterization was advised. On follow-up with the patient today, April [id number], he remains chest pain-free. He is in process of having a coronary angiogram later on today. Objective - Vital Signs Vital signs: Vital Signs Temp 97.7 F 04/08/19 03:32 Pulse 53 L 04/08/19 04:10 Resp 18 04/08/19 04:10 BP 140/65 04/08/19 03:32 Pulse Ox 96 04/08/19 03:32 Intake & Output 04/07/19 04/08/19 04/08/19 18:59 06:59 18:59 Intake Total 430 240 Balance 430 240 Weight 114.3 kg Intake: Oral 430 240 Other: Voiding Method Toilet Toilet # Voids 1 2 - Constitutional General appearance: Present: no acute distress - Respiratory Respiratory: bilateral: CTA - Cardiovascular Rhythm: regular Heart sounds: normal: S1, S2 - Labs CBC & Chem 7: 04/05/19 17:25 04/05/19 17:25 Assessment and Plan Assessment: Assessment #1 chest discomfort #2 abnormal stress test Plan #1 proceeding with coronary angiogram #2 follow-up with the patient
[2019-04-08] MEDS ORDERED: MIDAZOLAM (PF) 2 MG/2 ML VIAL IV ONE (08:04)
[2019-04-08] MEDS ORDERED: LIDOCAINE 1% INJ 10MG/ML (20 ML MDV) SQ ONE (08:07)
[2019-04-08] MEDS ORDERED: VERAPAMIL SYRINGE (5 MG/10 ML) INTRAARTER ONE (08:08)
[2019-04-08] MEDS ORDERED: HEPARIN SODIUM 1,000 UN/ML (10ML VL) IV ONE (08:09)
[2019-04-08] MEDS: MIDAZOLAM (PF) 2 MG/2 ML VIAL IV ONE ×2 (08:13→08:33)
[2019-04-08] MEDS ORDERED: IOPAMIDOL-370 100ML BTL INJ ONE (08:51)
[2019-04-08] MEDS ORDERED: IOPAMIDOL-370 125ML BTL INJ ONE (08:51)
[2019-04-08] MEDS ORDERED: CLOPIDOGREL 75 MG TAB PO ONE (08:52)
[2019-04-08] MEDS ORDERED: NITROGLYCERIN SL TABS 0.4 MG TAB SUBLINGUAL PRN (09:01)
[2019-04-08] MEDS ORDERED: RX INFO: IV CONTRAST WAS GIVEN 1 EACH MISC MISCELLANE PRN (09:01)
[2019-04-08] MEDS ORDERED: ZOLPIDEM 5 MG TAB PO PRN (09:01)
[2019-04-08] MEDS ORDERED: MAG HYDROX/AL HYDROX/SIMETH 30 ML CUP PO PRN (09:01)
[2019-04-08] MEDS ORDERED: ATROPINE SULFATE 0.1 MG/ML 10ML SYRINGE IV PRN (09:01)
[2019-04-08] MEDS ORDERED: SODIUM CHLORIDE 0.9% 1,000 ML IV SCH (09:15)
--- NOTE | 2019-04-08 10:03 | LTR ---
DATE OF SERVICE: April 08, 2019 RE: Bhupendra Rojo Dear Dr. Garces; Mr. Bhupendra Rojo presented to [facility] with chest discomfort and underwent a stress test and that revealed ischemia. Because of that, a heart catheterization was advised. It did reveal severe single-vessel coronary artery disease involving the left circumflex. I did perform successful stenting of the left circumflex with good results. I want to thank you for allowing us to participate in his care and please do not hesitate to call if you have any question or concern. Sincerely, Peter Christopher MD MMSUNG / LANEN: [id number] /
--- NOTE | 2019-04-08 10:09 | CC ---
CARDIAC CATHETERIZATION REPORT DATE OF SERVICE: 04/08/2019 PERFORMING PHYSICIAN: Peter Christopher MD, [employer]. PROCEDURE PERFORMED: 1. Selective right and left coronary angiogram. 2. Left heart catheterization. 3. Successful stenting of the mid left circumflex using 2.75 x 18 mm Xience CAMILO with an excellent angiographic and reduction of stenosis from 80% to 0%. INDICATION: This is a 69-year-old gentleman with hypertension and dyslipidemia who was admitted to the observation unit with chest discomfort and ruled out for acute non ST elevation myocardial infarction. He underwent a myocardial perfusion imaging stress test and that revealed inferior ischemia. Because of that, a heart catheterization was advised. APPROACH: Right radial artery. COMPLICATION: None. LEVEL OF SEDATION: Moderate with sedation length of 49 minutes. PROCEDURE DESCRIPTION: After obtaining an informed consent, the patient was brought to the cardiac label printer. The right radial artery was cannulated using micropuncture technique, the micropuncture wire passed easily, then I placed a 6-Kinyarwanda sheath in the right radial artery. After that, I gave the patient 2 mg of verapamil IA and 10,000 units of heparin IV. Selective right and left coronary angiogram performed using JR4 and JL3.5 catheters. Left heart catheterization was performed using JR4 catheter. The procedure was completed. After that, I did intervene on the left circumflex. Please see a separate paragraph for that. SELECTIVE CORONARY ANGIOGRAM: 1. The right coronary artery is a large caliber vessel and it is a dominant vessel and appeared to be angiographically normal. It distally bifurcates into PDA and PLV branches, both appeared to be angiographically normal. 2. The left main is very short left main and almost non accessed. Bifurcates into left circumflex and left anterior descending artery. 3. The left circumflex is a large caliber vessel. The mid left circumflex has a tight eccentric lesion, appeared to be in the range of 80% to 90%. 4. The LAD, the proximal LAD appeared to have mild disease only. The mid LAD and distal LAD appeared to be angiographically normal. The LAD gives rise into 2 diagonal branches, they appeared to be angiographically normal. 5. PCI of the left circumflex, anticoagulation was initiated using heparin only. I gave the patient additional 4000 of heparin and we checked the as well. Subsequently, I did engage the left main using JL3 guide. I had a hard time wiring the left circumflex because the guide was pointing toward the LAD. Subsequently, I did balloon angioplasty of the left circumflex using 2.5 x 12 mm balloon before I deployed 2.75 x 18 mm Xience drug-eluting stent, where the stent was positioned under fluoroscopy guidance and deployed under 12 atmospheres for 20 seconds with the following angiogram showing good angiographic results. The procedure was completed without any complication. CONCLUSION: Severe single-vessel coronary artery disease involving the mid left circumflex coronary artery. The left circumflex was stented using drug-eluting stent with good angiographic results. POSTPROCEDURE MANAGEMENT: 1. Dual anti-platelet therapy. 2. Risk factor modifications. 3. Follow up with the patient. MMODL / IJN: [id number] /
--- NOTE | 2019-04-08 14:46 | P.PN ---
Subjective Progress Note Date: 04/08/19 This is a 69-year-old male patient of Dr. Lyle Garces with past medical history of diverticulitis, chronic sinus drainage, remote history of tobacco use and dependence. Patient gives history that for at least 1 month he has had nausea, fatigue and "heavy breathing" He also complains of weakness in his arms and they feel heavy. He denies any weakness in his legs. He has some left arm numbness when he is driving which may be positional. 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 He went to see Dr. Garces yesterday and he has been under treatment for sinus infection completed Z-Charles and then started Augmentin. He states for the past 4-5 months he has had trouble clearing his throat. When in the office, patient was evaluated and sent into [facility] emergency center for evaluation. EKG was a sinus bradycardia with nonspecific changes in the inferior leads. Chest x-ray negative for acute cardiopulmonary process. White count was 9.5, hemoglobin 16.7, electrolytes within normal limits, creatinine 0.77. Troponin negative on 3 draws. ProBNP 48. LDL 112, HDL 43. Patient was placed in the observation unit and cardiology consult was requested. Echocardiogram has been ordered and report is pending. Abdominal ultrasound revealed hepatic steatosis. Persantine stress test was ordered and report is pending. 04/07: Persantine stress test was abnormal yesterday and patient is scheduled for heart catheterization today with Dr. Christopher but unfortunately this was delayed until tomorrow. Patient states that he continues to have heaviness in his arms and occasionally feels winded and nauseated. He states he was able to walk to the shower and back. He had a bowel movement yesterday. He denies any abdominal pain, nausea or vomiting. He has been afebrile, heart rate 62, blood pressure 111/58, pulse ox 94% on room air. Triglycerides 135, cholesterol 182, LDL 112, HDL 43. 04/08: This morning, patient underwent heart catheterization with Dr. Christopher finding severe single-vessel coronary artery disease in the mid left circumflex and successful stenting of the mid left circumflex. Patient is seen in the extended stay unit. He states his breathing is about the same. He continues to have sinus drainage mostly in his throat. Recommend the patient follow-up with ENT in [address] Garces can arrange if he still having problems and an outpatient. Heart rate in the 60s, blood pressure 110/74, pulse ox 94% on room air. Anticipate discharge home tomorrow. Objective - Vital Signs Vital signs: Vital Signs Temp 97.7 F 04/08/19 03:32 Pulse 64 04/08/19 10:22 Resp 16 04/08/19 10:22 BP 121/57 04/08/19 10:22 Pulse Ox 93 L 04/08/19 10:22 Intake & Output 04/07/19 04/08/19 04/08/19 18:59 06:59 18:59 Intake Total 430 240 100 Balance 430 240 100 Weight 114.3 kg Intake: IV 100 Sodium Chloride 0.9% 1, 0 000 ml @ 100 mls/hr IV . Q10H [facility] Rx#:[id number] Oral 430 240 Other: Voiding Method Toilet Toilet # Voids 1 2 - Exam Review of Systems Constitutional: Reports fatigue, denies lethargy, denies malaise, Denies chills, Denies fever Eyes: denies blurred vision, denies pain Ears, nose, mouth and throat: Reports post-nasal drip, Denies dental pain, Denies dysphagia, Denies epistaxis, Denies headache, Denies mouth pain, Denies sore throat Cardiovascular: Reports decreased exercise tolerance, Reports dyspnea on exertion, Reports shortness of breath, Denies chest pain, Denies edema, Denies lightheadedness, Denies syncope Respiratory: Reports dyspnea, Reports snoring, Denies cough, Denies cough with sputum, Denies excessive sputum, Denies hemoptysis, Denies home oxygen, Denies sleep apnea, Denies wheezing Gastrointestinal: Denies abdominal pain, Denies diarrhea, Denies nausea, Denies vomiting Genitourinary: Denies dysuria, Denies urinary frequency Musculoskeletal: Denies myalgias Integumentary: Denies pruritus, Denies rash, Denies wounds Neurological: Denies aphasia, Denies change in mentation, Denies change in speech, Denies gait dysfunction, Denies numbness, Denies seizures, Denies syncope, Denies weakness Psychiatric: Denies anxiety, Denies depression Endocrine: Denies fatigue, Denies weight change Physical exam: - Constitutional General appearance: no acute distress, obese, resting comfortably in bed. - EENT Eyes: PERRLA, normal appearance ENT: hard of hearing - Neck Neck: no lymphadenopathy - Respiratory Respiratory: bilateral: CTA - Cardiovascular Rhythm: regular Heart sounds: normal: S1, S2 Abnormal Heart Sounds: no systolic murmur, no diastolic murmur - Gastrointestinal General gastrointestinal: normal bowel sounds, soft, no tenderness - Integumentary Integumentary: normal turgor - Neurologic Neurologic: CNII-XII intact - Musculoskeletal Musculoskeletal: no right sided weakness, no left sided weakness - Psychiatric Psychiatric: A&O x's 3, appropriate affect, intact judgment & insight - Labs CBC & Chem 7: 04/05/19 17:25 04/05/19 17:25 Assessment and Plan Plan: 1. Fatigue, weakness in arms, difficulty breathing secondary to coronary artery disease status post stenting. Acute coronary syndrome ruled out by cardiology. Continue aspirin, atorvastatin, Plavix, losartan. 2. Hypertension. Patient started on losartan by cardiology. 3. Sinus infection recently treated with 2 courses of antibiotics. Recommend Flonase and Zyrtec for chronic sinus drainage. 4. Remote history of tobacco use and dependence, patient quit 3 years ago. 5. Alcohol abuse. Patient usually drinks 2-4 beers per day but decreased over the past month. 6. History of diverticulitis, stable. Polyps on last colonoscopy 3 years ago. 7. Suspected sleep apnea. Patient will need outpatient sleep study done. Discharge plan: Return home on Thursday Impression and plan of care have been directed as dictated by the signing physician. Rebeca Lancaster nurse practitioner acting as scribe for signing physician.
[2019-04-09] MEDS: SODIUM CHLORIDE 0.65% NASAL SPRAY 44 ML BTL NASAL SCH ×4 (00:31→20:26)
[2019-04-09] MEDS ORDERED: ONDANSETRON 4 MG/2 ML VIAL IVP STA (08:18)
[2019-04-09] MEDS ORDERED: MORPHINE SULFATE 2 MG/ML SYRINGE IVP STA (08:18)
[2019-04-09] MEDS: CLOPIDOGREL 75 MG TAB PO SCH (08:29)
[2019-04-09] MEDS: LOSARTAN 25 MG TAB PO SCH (08:29)
[2019-04-09] MEDS: LORATADINE 10 MG TAB PO SCH (08:29)
[2019-04-09] MEDS: ASPIRIN 325 MG TAB PO SCH (08:29)
[2019-04-09] MEDS: FLUTICASONE 50MCG/SPRAY NASAL 16GM EA NOSTRIL SCH ×2 (08:50→18:16)
--- NOTE | 2019-04-09 12:45 | P.PN ---
Subjective This is a pleasant 69-year-old male with no significant past medical history. He states he quit smoking cigarettes approximately 3 years ago. His father had his first cardiac event in his early 60s. He denies personal history of coronary artery disease, hypertension, dyslipidemia or diabetes mellitus. He has never seen a acid pumper for any reason. We have been asked to see him in consultation secondary to chest discomfort and shortness of breath. He states for the previous 4-6 weeks he has noticed ongoing and increasing shortness of breath with exertion. He states he feels as though it's hard for him to get in a deep breath when he feels he needs one. This has been associated with increased fatigue and overall generalized weakness which is very abnormal for him. Then last week he started feeling a heavy pressure sensation in the midsternal region this pain in his chest was intermittent and not associated with exertion. He felt though the chest tightness, sometimes at rest when he was trying to catch his breath. He did have intermittent episodes of nausea with no vomiting. He denies any palpitations or dizziness. He also describes an odd sensation in the back of his throat he feels like he has increased mucous production and is unable to clear his throat. This has been going on for about 4-6 weeks he's been following with his primary care physician and been on a course of antibiotics but doesn't seem to be helping. He also states he has been under significant stress in the last few months as his has been diagnosed with lymphoma and started chemotherapy last week. 04/09/2019 Patient underwent cardiac catheterization with Dr. Christopher revealing severe disease of the mid circumflex artery status post successful stent placement. Currently maintained on aspirin 325 mg daily, atorvastatin 80 mg daily, Plavix 75 mg daily, losartan 25 mg daily. This morning he woke up around 0400 with an episode of nausea and chest pressure. Relieved by morphine and zofran. EKG obtained revealed sinus mechanism with no acute changes noted. Blood pressure 154/95 heart rate 68 afebrile maintaining oxygen saturation. GENERAL: This is a 69-year-old male in no apparent distress at the time of my examination. HEENT: Head is atraumatic, normocephalic. Pupils are equal, round. Sclerae anicteric. Conjunctivae are clear. Mucous membranes of the mouth are moist. Neck is supple. There is no jugular venous distention. No carotid bruit is heard. LUNGS: Clear to auscultation no wheezes, rales or rhonchi. No chest wall tenderness is noted on palpation or with deep breathing. HEART: Regular rate and rhythm without murmurs, rubs or gallops. S1 and S2 heard. EXTREMITIES: No evidence of peripheral edema and no calf tenderness noted. ASSESSMENT Chest pain and shortness of breath, an acute coronary event has been ruled out. Coronary artery disease status post stent placement to the circumflex artery maintained on dual antiplatelet therapy. Remote history of diverticulitis Former nicotine dependence, quit 3 years ago Daily alcohol intake PLAN Decrease aspirin to 81 mg from 325 and initiate on lopressor 25 mg BID. Continue to monitor the patient closely for another 24 hours. Repeat EKG if the patient complains of chest discomfort. Further recommendations to follow. Nurse Practitioner note has been reviewed, I agree with a documented findings and plan of care. Patient was seen and examined. Objective - Vital Signs Vital signs: Vital Signs Temp 98.5 F 04/09/19 07:49 Pulse 60 04/09/19 08:00 Resp 20 04/09/19 08:00 BP 154/95 04/09/19 07:49 Pulse Ox 93 L 04/09/19 07:49 Intake & Output 04/08/19 04/09/19 04/09/19 18:59 06:59 18:59 Intake Total 740 Output Total 600 Balance 140 Intake: IV 500 Sodium Chloride 0.9% 1, 400 000 ml @ 100 mls/hr IV . Q10H [facility] Rx#:[id number] Oral 240 Output: Urine 600 Other: Voiding Method Toilet Toilet Toilet # Voids 1 1 - Labs CBC & Chem 7: 04/05/19 17:25 04/09/19 06:27
--- NOTE | 2019-04-09 13:57 | P.PN ---
Subjective Progress Note Date: 04/09/19 This is a 69-year-old male patient of Dr. Lyle Garces with past medical history of diverticulitis, chronic sinus drainage, remote history of tobacco use and dependence. Patient gives history that for at least 1 month he has had nausea, fatigue and "heavy breathing" He also complains of weakness in his arms and they feel heavy. He denies any weakness in his legs. He has some left arm numbness when he is driving which may be positional. 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 He went to see Dr. Garces yesterday and he has been under treatment for sinus infection completed Z-Charles and then started Augmentin. He states for the past 4-5 months he has had trouble clearing his throat. When in the office, patient was evaluated and sent into [facility] emergency center for evaluation. EKG was a sinus bradycardia with nonspecific changes in the inferior leads. Chest x-ray negative for acute cardiopulmonary process. White count was 9.5, hemoglobin 16.7, electrolytes within normal limits, creatinine 0.77. Troponin negative on 3 draws. ProBNP 48. LDL 112, HDL 43. Patient was placed in the observation unit and cardiology consult was requested. Echocardiogram has been ordered and report is pending. Abdominal ultrasound revealed hepatic steatosis. Persantine stress test was ordered and report is pending. 04/07: Persantine stress test was abnormal yesterday and patient is scheduled for heart catheterization today with Dr. Christopher but unfortunately this was delayed until tomorrow. Patient states that he continues to have heaviness in his arms and occasionally feels winded and nauseated. He states he was able to walk to the shower and back. He had a bowel movement yesterday. He denies any abdominal pain, nausea or vomiting. He has been afebrile, heart rate 62, blood pressure 111/58, pulse ox 94% on room air. Triglycerides 135, cholesterol 182, LDL 112, HDL 43. 04/08: This morning, patient underwent heart catheterization with Dr. Christopher finding severe single-vessel coronary artery disease in the mid left circumflex and successful stenting of the mid left circumflex. Patient is seen in the extended stay unit. He states his breathing is about the same. He continues to have sinus drainage mostly in his throat. Recommend the patient follow-up with ENT in [address] Garces can arrange if he still having problems and an outpatient. Heart rate in the 60s, blood pressure 110/74, pulse ox 94% on room air. Anticipate discharge home tomorrow. 04/09: Patient is seen this morning on the cardiac stepdown unit. Anticipate he would be ready for discharge today. He gives history that he woke up before 30 this morning with nausea and shortness of breath and stuffy feeling in his chest. Patient states that he has not had any improvement of his symptoms since he had his stent done. Will hold discharge for today. His prescriptions have been sent to the pharmacy per his family to pharmacy picking tech today. Patient had repeat EKG if he has episode of chest pain. Plan to monitor patient over the next 24 hours and discharge home tomorrow. Objective - Vital Signs Vital signs: Vital Signs Temp 98.5 F 04/09/19 07:49 Pulse 60 04/09/19 07:49 Resp 20 04/09/19 07:49 BP 154/95 04/09/19 07:49 Pulse Ox 93 L 04/09/19 07:49 Intake & Output 04/08/19 04/09/19 04/09/19 18:59 06:59 18:59 Intake Total 740 Output Total 600 Balance 140 Intake: IV 500 Sodium Chloride 0.9% 1, 400 000 ml @ 100 mls/hr IV . Q10H [facility] Rx#:[id number] Oral 240 Output: Urine 600 Other: Voiding Method Toilet Toilet # Voids 1 1 - Exam Review of Systems Constitutional: Reports fatigue, denies lethargy, denies malaise, Denies chills, Denies fever Eyes: denies blurred vision, denies pain Ears, nose, mouth and throat: Reports post-nasal drip, Denies dental pain, Denies dysphagia, Denies epistaxis, Denies headache, Denies mouth pain, Denies sore throat Cardiovascular: Reports decreased exercise tolerance, Reports dyspnea on exertion, Reports shortness of breath, Denies chest pain, Denies edema, Denies lightheadedness, Denies syncope Respiratory: Reports dyspnea, Reports snoring, Denies cough, Denies cough with sputum, Denies excessive sputum, Denies hemoptysis, Denies home oxygen, Denies sleep apnea, Denies wheezing Gastrointestinal: Denies abdominal pain, Denies diarrhea, reports nausea, Denies vomiting Genitourinary: Denies dysuria, Denies urinary frequency Musculoskeletal: Denies myalgias Integumentary: Denies pruritus, Denies rash, Denies wounds Neurological: Denies aphasia, Denies change in mentation, Denies change in speech, Denies gait dysfunction, Denies numbness, Denies seizures, Denies syncope, Denies weakness Psychiatric: Denies anxiety, Denies depression Endocrine: Denies fatigue, Denies weight change Physical exam: - Constitutional General appearance: no acute distress, obese, resting comfortably in bed. - EENT Eyes: PERRLA, normal appearance ENT: hard of hearing - Neck Neck: no lymphadenopathy - Respiratory Respiratory: bilateral: CTA - Cardiovascular Rhythm: regular Heart sounds: normal: S1, S2 Abnormal Heart Sounds: no systolic murmur, no diastolic murmur - Gastrointestinal General gastrointestinal: normal bowel sounds, soft, no tenderness - Integumentary Integumentary: normal turgor, right wrist without hematoma. - Neurologic Neurologic: CNII-XII intact - Musculoskeletal Musculoskeletal: no right sided weakness, no left sided weakness - Psychiatric Psychiatric: A&O x's 3, appropriate affect, intact judgment & insight - Labs CBC & Chem 7: 04/05/19 17:25 04/09/19 06:27 Assessment and Plan Plan: 1. Fatigue, weakness in arms, difficulty breathing secondary to coronary artery disease status post stenting. Acute coronary syndrome ruled out by cardiology. Continue aspirin, atorvastatin, Plavix, losartan. Monitor for an additional 24 hours. 2. Hypertension. Patient started on losartan by cardiology. 3. Sinus infection recently treated with 2 courses of antibiotics. Recommend Flonase and Zyrtec for chronic sinus drainage. 4. Remote history of tobacco use and dependence, patient quit 3 years ago. 5. Alcohol abuse. Patient usually drinks 2-4 beers per day but decreased over the past month. 6. History of diverticulitis, stable. Polyps on last colonoscopy 3 years ago. 7. Suspected sleep apnea. Patient will need outpatient sleep study done. Discharge plan: Return home on Thursday Impression and plan of care have been directed as dictated by the signing physician. Rebeca Lancaster nurse practitioner acting as scribe for signing physician.
[2019-04-09] MEDS: METOPROLOL TARTRATE 25 MG TAB PO SCH ×2 (17:27→20:27)
[2019-04-09] MEDS ORDERED: ONDANSETRON 4 MG/2 ML VIAL IVP PRN (19:25)
[2019-04-09] MEDS ORDERED: ATORVASTATIN 80 MG TAB PO SCH (21:00)
[2019-04-10] MEDS ORDERED: ASPIRIN 81 MG PO SCH (09:00)
[2019-04-10] MEDS: METOPROLOL TARTRATE 25 MG TAB PO SCH (09:46)
[2019-04-10] MEDS: LOSARTAN 25 MG TAB PO SCH (09:46)
[2019-04-10] MEDS: CLOPIDOGREL 75 MG TAB PO SCH (09:47)
[2019-04-10] MEDS: LORATADINE 10 MG TAB PO SCH (09:47)
[2019-04-10] MEDS: SODIUM CHLORIDE 0.65% NASAL SPRAY 44 ML BTL NASAL SCH (09:47)
[2019-04-10 11:40] VITALS: BP 152/86; PULSE 74; RESP 18; TEMP 98.5
--- NOTE | 2019-04-10 11:51 | P.PN ---
Subjective Progress Note Date: 04/10/19 This is a pleasant 69-year-old male with no significant past medical history. He states he quit smoking cigarettes approximately 3 years ago. His father had his first cardiac event in his early 60s. He denies personal history of coronary artery disease, hypertension, dyslipidemia or diabetes mellitus. 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 We have been asked to see him in consultation secondary to chest discomfort and shortness of breath. He states for the previous 4-6 weeks he has noticed ongoing and increasing shortness of breath with exertion. He states he feels as though it's hard for him to get in a deep breath when he feels he needs one. This has been associated with increased fatigue and overall generalized weakness which is very abnormal for him. Then last week he started feeling a heavy pressure sensation in the midsternal region this pain in his chest was intermittent and not associated with exertion. He felt though the chest tightness, sometimes at rest when he was trying to catch his breath. He did have intermittent episodes of nausea with no vomiting. He denies any palpitations or dizziness. He also describes an odd sensation in the back of his throat he feels like he has increased mucous production and is unable to clear his throat. This has been going on for about 4-6 weeks he's been following with his primary care physician and been on a course of antibiotics but doesn't seem to be helping. He also states he has been under significant stress in the last few months as his has been diagnosed with lymphoma and started chemotherapy last week. Patient underwent cardiac catheterization with Dr. Christopher revealing severe disease of the mid circumflex artery status post successful stent placement. Currently maintained on aspirin 325 mg daily, atorvastatin 80 mg daily, Plavix 75 mg daily, losartan 25 mg daily. This morning he woke up around 0400 with an episode of nausea and chest pressure. Relieved by morphine and zofran. EKG obtained revealed sinus mechanism with no acute changes noted. Blood pressure 154/95 heart rate 68 afebrile maintaining oxygen saturation. 04/10/2019 Patient was seen and examined this morning, denied any chest pain, breathing overall is stable. Hemodynamically he is stable. Being discharged home today Objective - Vital Signs Vital signs: Vital Signs Temp 98.5 F 04/10/19 08:00 Pulse 74 04/10/19 08:00 Resp 18 04/10/19 08:00 BP 152/86 04/10/19 08:00 Pulse Ox 94 L 04/10/19 08:00 Intake & Output 04/09/19 04/10/19 04/10/19 18:59 06:59 18:59 Intake Total 322 680 Output Total 640 Balance -318 680 Weight 114.3 kg 110.3 kg Intake: Oral 322 680 Output: Urine 640 Other: Voiding Method Toilet Toilet Toilet # Voids 1 0 - Exam GENERAL: This is a 69-year-old male in no apparent distress at the time of my examination. HEENT: Head is atraumatic, normocephalic. Pupils are equal, round. Sclerae anicteric. Conjunctivae are clear. Mucous membranes of the mouth are moist. Neck is supple. There is no jugular venous distention. No carotid bruit is heard. LUNGS: Clear to auscultation no wheezes, rales or rhonchi. No chest wall tenderness is noted on palpation or with deep breathing. HEART: Regular rate and rhythm without murmurs, rubs or gallops. S1 and S2 heard. EXTREMITIES: No evidence of peripheral edema and no calf tenderness noted. - Labs CBC & Chem 7: 04/05/19 17:25 04/09/19 06:27 Assessment and Plan Plan: Assessment and plan #1 Coronary artery disease status post stent placement to the circumflex artery maintained on dual antiplatelet therapy. #2 Remote history of diverticulitis #3 Former nicotine dependence, quit 3 years ago #4 Daily alcohol intake #5 hyperlipidemia Plan Patient may be able to be discharged home today. We'll make him a follow-up appointment in the office one week post discharge. DNP note has been reviewed, I agree with a documented findings and plan of care. Patient was seen and examined.
--- NOTE | 2019-04-10 12:59 | P.DS ---
Providers Date of admission: 04/06/19 14:58 Expected date of discharge: 04/10/19 Attending physician: Molly Marvin Consults: 04/05/19 21:05 Consult Physician Routine Consulting Provider: Cardiology Belén Consult Reason/Comments: CP/SOB on exertion Do you want consulting provider notified?: Yes 04/08/19 09:01 Consult Physician Routine Consulting Provider: Cardiology Belén Consult Reason/Comments: Post Interventional patient Do you want consulting provider notified?: Already Contacted Primary care physician: Lyle Garces [facility] Course: This is a 69-year-old male patient of Dr. Lyle Garces with past medical history of diverticulitis, chronic sinus drainage, remote history of tobacco use and dependence. Patient gives history that for at least 1 month he has had nausea, fatigue and "heavy breathing" He also complains of weakness in his arms and they feel heavy. He denies any weakness in his legs. He has some left arm numbness when he is driving which may be positional. 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 He went to see Dr. Garces yesterday and he has been under treatment for sinus infection completed Z-Charles and then started Augmentin. He states for the past 4-5 months he has had trouble clearing his throat. When in the office, patient was evaluated and sent into [facility] emergency center for evaluation. EKG was a sinus bradycardia with nonspecific changes in the inferior leads. Chest x-ray negative for acute cardiopulmonary process. White count was 9.5, hemoglobin 16.7, electrolytes within normal limits, creatinine 0.77. Troponin negative on 3 draws. ProBNP 48. LDL 112, HDL 43. Patient was placed in the observation unit and cardiology consult was requested. Echocardiogram has been ordered and report is pending. Abdominal ultrasound revealed hepatic steatosis. Persantine stress test was ordered and report is pending. 04/07: Persantine stress test was abnormal yesterday and patient is scheduled for heart catheterization today with Dr. Christopher but unfortunately this was delayed until tomorrow. Patient states that he continues to have heaviness in his arms and occasionally feels winded and nauseated. He states he was able to walk to the shower and back. He had a bowel movement yesterday. He denies any abdominal pain, nausea or vomiting. He has been afebrile, heart rate 62, blood pressure 111/58, pulse ox 94% on room air. Triglycerides 135, cholesterol 182, LDL 112, HDL 43. 04/08: This morning, patient underwent heart catheterization with Dr. Christopher finding severe single-vessel coronary artery disease in the mid left circumflex and successful stenting of the mid left circumflex. Patient is seen in the extended stay unit. He states his breathing is about the same. He continues to have sinus drainage mostly in his throat. Recommend the patient follow-up with ENT in [address] Garces can arrange if he still having problems and an outpatient. Heart rate in the 60s, blood pressure 110/74, pulse ox 94% on room air. Anticipate discharge home tomorrow. 04/09: Patient is seen this morning on the cardiac stepdown unit. Anticipate he would be ready for discharge today. He gives history that he woke up before 30 this morning with nausea and shortness of breath and stuffy feeling in his chest. Patient states that he has not had any improvement of his symptoms since he had his stent done. Will hold discharge for today. His prescriptions have been sent to the pharmacy per his family to pick pulling machine tender today. Patient had repeat EKG if he has episode of chest pain. Plan to monitor patient over the next 24 hours and discharge home tomorrow. 04/10: Patient has had no events overnight and has been cleared for discharge by cardiology. Patient will be discharged home today in stable condition. Discharge diagnoses: 1. Fatigue, weakness in arms, difficulty breathing secondary to coronary artery disease status post stenting. Acute coronary syndrome ruled out by cardiology. 2. Hypertension. 3. Sinus infection recently treated with 2 courses of antibiotics. Patient may need ENT follow-up if not improved in 2 weeks. 4. Remote history of tobacco use and dependence, patient quit 3 years ago. 5. Alcohol abuse. 6. History of diverticulitis, stable. Polyps on last colonoscopy 3 years ago. 7. Suspected sleep apnea. Patient will need outpatient sleep study done. Discharge plan: Return home Impression and plan of care have been directed as dictated by the signing p leno. Rebeca Lancaster nurse practitioner acting as scribe for signing physician. Patient Condition at Discharge: Good Plan - Discharge Summary Discharge Rx Participant: Yes New Discharge Prescriptions: New Loratadine [Claritin] 10 mg PO DAILY tab Losartan [Cozaar] 25 mg PO DAILY #30 tab Sodium Chloride 0.65% Nasal [Deep Sea (Saline)] 2 spray NASAL TID spray Aspirin EC [Ecotrin Low Dose] 81 mg PO DAILY #30 tablet. Fluticasone Nasal [place] [Flonase Nasal [place]] 2 spray EA NOSTRIL DAILY spr Atorvastatin [Lipitor] 80 mg PO HS #30 tab Nitroglycerin Sl Tabs [Nitrostat] 0.4 mg SUBLINGUAL Q5M PRN #25 tab PRN Reason: Chest Pain Clopidogrel [Plavix] 75 mg PO DAILY #30 tab Discontinued Amoxic-Pot Clav 500-125 mg [Augmentin 500-125 mg] 1 tab PO BID Discharge Medication List Aspirin EC [Ecotrin Low Dose] 81 mg PO DAILY #30 tablet. 04/09/19 [Rx] Atorvastatin [Lipitor] 80 mg PO HS #30 tab 04/09/19 [Rx] Clopidogrel [Plavix] 75 mg PO DAILY #30 tab 04/09/19 [Rx] Fluticasone Nasal [place] [Flonase Nasal [place]] 2 spray EA NOSTRIL DAILY spr 04/09/19 [Rx] Loratadine [Claritin] 10 mg PO DAILY tab 04/09/19 [Rx] Losartan [Cozaar] 25 mg PO DAILY #30 tab 04/09/19 [Rx] Nitroglycerin Sl Tabs [Nitrostat] 0.4 mg SUBLINGUAL Q5M PRN #25 tab 04/09/19 [Rx] Sodium Chloride 0.65% Nasal [Deep Sea (Saline)] 2 spray NASAL TID spray 04/09/19 [Rx] Follow up Appointment(s)/Referral(s): Peter Chrsitopher MD [STAFF PHYSICIAN] - 1 Week (Please make appointment when office is open) Lyle Garces MD [Primary Care Provider] - 1 Week (Please make appointment when office is open) Patient Instructions/Handouts: Left Heart Catheterization (DC) Discharge Disposition: HOME SELF-CARE
== END 2019-04-10 12:05 | disposition home or self-care (01) | DRG 247 ==
LOC: EC 16:04 → 1SOBS 20:49 → OBSVTOIN 04-06 14:58 → 3SCARD 04-08 09:05
PROVIDERS: ADMIT Internal Medicine; ATTEND Internal Medicine
PROC: B2111ZZ Fluoroscopy of Multiple Coronary Arteries using Low Osmolar Contrast (ICD-10-PCS; 2019-04-08)
PROC: 027034Z Dilation of Coronary Artery, One Artery with Drug-eluting Intraluminal Device, Percutaneous Approach (ICD-10-PCS; principal; 2019-04-08 07:30)
PROC: 4A023N7 Measurement of Cardiac Sampling and Pressure, Left Heart, Percutaneous Approach (ICD-10-PCS; 2019-04-08 07:30)
DX: I25.10 Atherosclerotic heart disease of native coronary artery without angina pectoris (principal); E78.5 Hyperlipidemia, unspecified; F10.10 Alcohol abuse, uncomplicated; I10 Essential (primary) hypertension; K76.0 Fatty (change of) liver, not elsewhere classified; Z79.82 Long term (current) use of aspirin; Z79.899 Other long term (current) drug therapy; Z82.49 Family history of ischemic heart disease and other diseases of the circulatory system; Z82.5 Family history of asthma and other chronic lower respiratory diseases; Z79.02 Long term (current) use of antithrombotics/antiplatelets; Z87.891 Personal history of nicotine dependence; Z95.5 Presence of coronary angioplasty implant and graft; J32.9 Chronic sinusitis, unspecified; G47.30 Sleep apnea, unspecified
CPT/HCPCS: 36415; 71046; 76700; 78452; 80053; 80061; 82565; 83880; 84484; 85025; 85610; 85730; 93005; 93017; 93306; 93454; 94640; 99285; C1874

== ENCOUNTER 2019-04-11 13:57 | Inpatient (IN) | payer MEDICARE, BC ==
[2019-04-11] MEDS ORDERED: ASPIRIN 81 MG PO STA (14:28)
[2019-04-11] MEDS ORDERED: NITROGLYCERIN OINT 1 INCH/GM PACKET TOPICAL STA (14:28)
--- NOTE | 2019-04-11 14:47 | ED ---
General Adult HPI - General Chief complaint: Chest Pain Stated complaint: Chest Pain Time Seen by Provider: 04/11/19 14:00 Source: patient, family, RN notes reviewed Mode of arrival: wheelchair Limitations: no limitations - History of Present Illness Initial comments: This is a 69-year-old male presents emergency Department complaining of chest pain. Patient states he just had a stent placed on Thursday. Patient states he felt good Thursday and Thursday but he woke up this morning at 8:00 started having chest pain radiated to the back of his neck and he states he also had some pain in his arm and was having a difficult time breathing. 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 Patient denies any increase in pain with exertion. Patient states he took 3 nitroglycerin today did not help. Patient states the pain is persistent. Patient states it does feel different than the pain he had when he had his stent placed. Patient denies any recent fever chills or cough. Patient denies any abdominal pain patient denies nausea vomiting diarrhea. Patient denies lightheadedness dizziness or near syncopal episode. - Related Data Previous Rx's Medication Instructions Recorded Aspirin EC [Ecotrin Low Dose] 81 mg PO DAILY #30 tablet. 04/09/19 Atorvastatin [Lipitor] 80 mg PO HS #30 tab 04/09/19 Clopidogrel [Plavix] 75 mg PO DAILY #30 tab 04/09/19 Fluticasone Nasal [place] [Flonase 2 spray EA NOSTRIL DAILY spr 04/09/19 Nasal [place]] Loratadine [Claritin] 10 mg PO DAILY tab 04/09/19 Losartan [Cozaar] 25 mg PO DAILY #30 tab 04/09/19 Nitroglycerin Sl Tabs [Nitrostat] 0.4 mg SUBLINGUAL Q5M PRN #25 tab 04/09/19 Sodium Chloride 0.65% Nasal [Deep 2 spray NASAL TID spray 04/09/19 Sea (Saline)] Allergies Allergy/AdvReac Type Severity Reaction Status Date / Time No Known Allergies Allergy Verified 04/11/19 14:21 Review of Systems ROS Statement: Those systems with pertinent positive or pertinent negative responses have been documented in the HPI. ROS Other: All systems not noted in ROS Statement are negative. Past Medical History Past Medical History: No Reported History, Chest Pain / Angina Additional Past Medical History / Comment(s): diverticulitis History of Any Multi-Drug Resistant Organisms: None Reported Past Surgical History: Heart Catheterization With Stent, Hernia Repair, Orthopedic Surgery Additional Past Surgical History / Comment(s): lt shoulder and lt knee, colonoscopy 3 years ago with polypectomy, possible precancerous. Past Anesthesia/Blood Transfusion Reactions: No Reported Reaction Past Psychological History: No Psychological Hx Reported Smoking Status: Former smoker Past Alcohol Use History: Occasional Past Drug Use History: None Reported - Past Family History Father Family Medical History: COPD, Myocardial Infarction ([place]) Additional Family Medical History / Comment(s): Father at age 72 from emphysema with history of a myocardial infarction in his 60s. Mother Family Medical History: No Reported History Additional Family Medical History / Comment(s): Mother in her 80s from old age. Sister(s) Additional Family Medical History / Comment(s): Patient has 6 sisters that are all . 2 were twins in motor vehicle accident. Others have from old age. No history of cancers. Patient does not have any brothers. Patient has 3 children, 2 boys and one girl with no major medical problems. General Exam - General Exam Comments Initial Comments: GENERAL: Patient is well-developed and well-nourished. Patient is nontoxic and well- hydrated and is in mild distress. ENT: Neck is soft and supple. No significant lymphadenopathy is noted. Oropharynx is clear. Moist mucous membranes. Neck has full range of motion without eliciting any pain. EYES: The sclera were anicteric and conjunctiva were pink and moist. Extraocular movements were intact and pupils were equal round and reactive to light. Eyelids were unremarkable. PULMONARY: Unlabored respirations. Good breath sounds bilaterally. No audible rales rhonchi or wheezing was noted. CARDIOVASCULAR: There is a regular rate and rhythm without any murmurs gallops or rubs. ABDOMEN: Soft and nontender with normal bowel sounds. SKIN: Skin is clear with no lesions or rashes and otherwise unremarkable. NEUROLOGIC: Patient is alert and oriented x3. Cranial nerves II through XII are grossly intact. Motor and sensory are also intact. Normal speech, volume and content. Symmetrical smile. MUSCULOSKELETAL: Normal extremities with adequate strength and full range of motion. LYMPHATICS: No significant lymphadenopathy is noted PSYCHIATRIC: Normal psychiatric evaluation. Limitations: no limitations Course Vital Signs 04/11/19 13:58 Temperature 97.7 F Pulse Rate 71 Respiratory 24 Rate Blood Pressure 133/92 O2 Sat by Pulse 98 Oximetry Medical Decision Making - Medical Decision Making EKG shows normal sinus rhythm at 60 bpm MS interval is on a 92 QRS 96 QT interval 44 QTC is 44 per patient's EKG shows no ST segment elevation or depression or T wave abnormalities are noted. Patient had some increased discomfort at and a repeat EKG was done. EKG showed normal sinus rhythm at 62 bpm MS interval 196 dresses 98 QT interval 42 QTC is 408. Patient's EKG shows no ST segment elevation or depression or T wave abnormalities are noted. I spoke with Dr. Demarco when he was in the emergency department seeing another patient about this patient prior to the patient being admitted he was in agreement with the plan. I spoke with Dr. Pablo and she agreed to admit the patient admitted the patient wrote admitting orders I consulted cardiology I started patient on heparin. I continued heparin and aspirin Nitropaste on the floor. - Lab Data Result diagrams: 04/11/19 14:13 04/11/19 14:13 Lab Results 04/11/19 04/11/19 04/11/19 Range/Units 14:13 14:13 14:13 WBC 13.2 H (3.8-10.6) k/uL RBC 5.69 (4.30-5.90) m/uL Hgb 17.5 (13.0-17.5) gm/dL Hct 52.1 (39.0-53.0) % MCV 91.6 (80.0-100.0) fL MCH 30.6 (25.0-35.0) pg MCHC 33.5 (31.0-37.0) g/dL RDW 13.2 (11.5-15.5) % Plt Count 264 (150-450) k/uL Neutrophils % 69 % Lymphocytes % 19 % Monocytes % 6 % Eosinophils % 3 % Basophils % 1 % Neutrophils # 9.1 H (1.3-7.7) k/uL Lymphocytes # 2.5 (1.0-4.8) k/uL Monocytes # 0.8 (0-1.0) k/uL Eosinophils # 0.4 (0-0.7) k/uL Basophils # 0.1 (0-0.2) k/uL PT 9.7 (9.0-12.0) sec INR 0.9 (<1.2) APTT 23.6 (22.0-30.0) sec Sodium 140 (137-145) mmol/L Potassium 4.3 (3.5-5.1) mmol/L Chloride 106 (98-107) mmol/L Carbon Dioxide 24 (22-30) mmol/L Anion Gap 10 mmol/L BUN 17 (9-20) mg/dL Creatinine 0.99 (0.66-1.25) mg/dL Est GFR (CKD-EPI)AfAm >90 (>60 ml/min/1.73 sqM) Est GFR (CKD-EPI)NonAf 78 (>60 ml/min/1.73 sqM) Glucose 98 (74-99) mg/dL Calcium 10.0 (8.4-10.2) mg/dL Magnesium 2.1 (1.6-2.3) mg/dL Total Bilirubin 0.9 (0.2-1.3) mg/dL AST 35 (17-59) U/L ALT 57 (21-72) U/L Alkaline Phosphatase 64 (38-126) U/L Troponin I (0.000-0.034) ng/mL Total Protein 7.6 (6.3-8.2) g/dL Albumin 4.7 (3.5-5.0) g/dL 04/11/19 Range/Units 14:13 WBC (3.8-10.6) k/uL RBC (4.30-5.90) m/uL Hgb (13.0-17.5) gm/dL Hct (39.0-53.0) % MCV (80.0-100.0) fL MCH (25.0-35.0) pg MCHC (31.0-37.0) g/dL RDW (11.5-15.5) % Plt Count (150-450) k/uL Neutrophils % % Lymphocytes % % Monocytes % % Eosinophils % % Basophils % % Neutrophils # (1.3-7.7) k/uL Lymphocytes # (1.0-4.8) k/uL Monocytes # (0-1.0) k/uL Eosinophils # (0-0.7) k/uL Basophils # (0-0.2) k/uL PT (9.0-12.0) sec INR (<1.2) APTT (22.0-30.0) sec Sodium (137-145) mmol/L Potassium (3.5-5.1) mmol/L Chloride (98-107) mmol/L Carbon Dioxide (22-30) mmol/L Anion Gap mmol/L BUN (9-20) mg/dL Creatinine (0.66-1.25) mg/dL Est GFR (CKD-EPI)AfAm (>60 ml/min/1.73 sqM) Est GFR (CKD-EPI)NonAf (>60 ml/min/1.73 sqM) Glucose (74-99) mg/dL Calcium (8.4-10.2) mg/dL Magnesium (1.6-2.3) mg/dL Total Bilirubin (0.2-1.3) mg/dL AST (17-59) U/L ALT (21-72) U/L Alkaline Phosphatase (38-126) U/L Troponin I 0.092 H* (0.000-0.034) ng/mL Total Protein (6.3-8.2) g/dL Albumin (3.5-5.0) g/dL Critical Care Time Critical Care Time: Yes Total Critical Care Time: 35 Disposition Clinical Impression: Unstable angina pectoris Disposition: ADMITTED IP TO THIS HOSP Referrals: Lyle Garces MD [Primary Care Provider] - 1-2 days Time of Disposition: 17:07
[2019-04-11 14:49] LABS: Basophils # (A) 0.1 k/uL (0-0.2); Basophils % (A) 1 %; Eosinophils # (A) 0.4 k/uL (0-0.7); Eosinophils % (A) 3 %; HCT 52.1 % (39.0-53.0); HGB 17.5 gm/dL (13.0-17.5); Lymphocytes # (A) 2.5 k/uL (1.0-4.8); Lymphocytes % (A) 19 %; MCH 30.6 pg (25.0-35.0); MCHC 33.5 g/dL (31.0-37.0); MCV 91.6 fL (80.0-100.0); Mean Platelet Volume 7.2; Monocytes # (A) 0.8 k/uL (0-1.0); Monocytes % (A) 6 %; Neutrophils # (A) 9.1 k/uL (1.3-7.7); Neutrophils % (A) 69 %; Platelet Count 264 k/uL (150-450); RBC 5.69 m/uL (4.30-5.90); RDW 13.2 % (11.5-15.5); WBC 13.2 k/uL (3.8-10.6)
[2019-04-11 14:59] LABS: INR 0.9 (<1.2); Partial Thromboplastin Time 23.6 sec (22.0-30.0); Prothrombin Time 9.7 sec (9.0-12.0)
[2019-04-11 15:00] LABS: ALT 57 U/L (21-72); AST 35 U/L (17-59); Albumin 4.7 g/dL (3.5-5.0); Alkaline Phosphatase 64 U/L (38-126); Anion Gap 10 mmol/L; Blood Urea Nitrogen 17 mg/dL (9-20); Carbon Dioxide 24 mmol/L (22-30); Chloride 106 mmol/L (98-107); Glucose 98 mg/dL (74-99); Magnesium 2.1 mg/dL (1.6-2.3); Potassium 4.3 mmol/L (3.5-5.1); Sodium 140 mmol/L (137-145); Total Bilirubin 0.9 mg/dL (0.2-1.3); Total Protein 7.6 g/dL (6.3-8.2)
--- NOTE | 2019-04-11 15:42 | XR ---
EXAMINATION TYPE: XR chest 2V DATE OF EXAM: 04/11/2019 COMPARISON: Prior chest x-ray 04/05/2019 HISTORY: Chest pain TECHNIQUE: Frontal and lateral views of the chest are obtained. FINDINGS: There are overlying cardiac leads. Overlying artifacts noted. Calcified granuloma present l eft upper lobe. Prominent lung line may be indicative of underlying COPD. Aorta is dense. There is no focal air space opacity, pleural effusion, or pneumothorax seen. The cardiac silhouette size is wit hin normal limits. The osseous structures are intact. IMPRESSION: No acute cardiopulmonary process.
[2019-04-11] MEDS ORDERED: HEPARIN SODIUM,PORCINE 5,000 UNIT/ML 1 ML VIAL IV ONE (16:40)
[2019-04-11] MEDS ORDERED: HEPARIN SOD,PORK IN 0.45% NACL 25,000 UNIT in 0.45% NACL 1 250ML.BAG IV SCH (16:45)
[2019-04-11] MEDS ORDERED: ACETAMINOPHEN TAB 500 MG TAB PO STA (17:30)
[2019-04-11] MEDS ORDERED: ONDANSETRON 4 MG/2 ML VIAL IVP STA (20:50)
[2019-04-11] MEDS: NITROGLYCERIN OINT 1 INCH/GM PACKET TOPICAL SCH ×2 (20:56→23:44)
[2019-04-11] MEDS: NITROGLYCERIN SL TABS 0.4 MG TAB SUBLINGUAL PRN ×2 (22:55→23:01)
[2019-04-11] MEDS ORDERED: MORPHINE SULFATE 2 MG/ML SYRINGE IVP STA (23:11)
[2019-04-11] MEDS ORDERED: FUROSEMIDE 10 MG/ML 2 ML VIAL IV STA (23:11)
[2019-04-11] MEDS ORDERED: HYDROmorphone 1 MG/ML 1 ML SYRINGE IVP STA (23:27)
[2019-04-11] MEDS ORDERED: NITROGLYCERIN-D5W PMX 50 MG in DEXTROSE/WATER 1 250ML.BAG IV SCH (23:30)
[2019-04-12 02:37] LABS: Cholesterol 120 mg/dL (<200); HDL Cholesterol 43 mg/dL (40-60); LDL Cholesterol,Calculated 56 mg/dL (0-99); Triglycerides 107 mg/dL (<150)
[2019-04-12] MEDS ORDERED: ASPIRIN 325 MG TAB PO SCH (09:00)
[2019-04-12] MEDS: NITROGLYCERIN SL TABS 0.4 MG TAB SUBLINGUAL PRN ×3 (09:02→09:15)
[2019-04-12] MEDS ORDERED: HYDROmorphone 0.5 MG/0.5 ML SYRINGE IVP STA (09:23)
[2019-04-12] MEDS ORDERED: ALPRAZolam 0.5 MG TAB PO PRN (09:24)
[2019-04-12] MEDS ORDERED: SODIUM CHLORIDE 0.9% 1,000 ML in EMPTY BAG 1 BAG IV ONE (09:24)
[2019-04-12] MEDS ORDERED: ASPIRIN 325 MG TAB PO STA (09:24)
[2019-04-12] MEDS ORDERED: ALPRAZolam 0.25 MG TAB PO PRN (09:24)
[2019-04-12] MEDS ORDERED: ATORVASTATIN 80 MG TAB PO STA (09:24)
[2019-04-12] MEDS ORDERED: NITROGLYCERIN SL TABS 0.4 MG TAB SUBLINGUAL PRN (09:24)
[2019-04-12] MEDS ORDERED: LIDOCAINE 1% INJ 10MG/ML (20 ML MDV) ONE (09:48)
[2019-04-12] MEDS ORDERED: IV FLUID CONTINUATION 1,000 ML IV ONE (10:11)
[2019-04-12] MEDS ORDERED: LIDOCAINE 1% INJ 10MG/ML (20 ML MDV) SQ ONE (10:26)
[2019-04-12] MEDS ORDERED: MIDAZOLAM (PF) 2 MG/2 ML VIAL IV ONE (10:27)
[2019-04-12] MEDS ORDERED: IOPAMIDOL-370 125ML BTL INJ ONE (10:39)
--- NOTE | 2019-04-12 10:46 | P.CRDCN ---
History of Present Illness Consult date: 04/12/19 Requesting physician: Víctor Pablo Consult reason: chest pain Chief complaint: Chest pain History of present illness: This is a 69-year-old gentleman with recent hospitalization, symptoms of chest discomfort at that time with negative enzymes was taken to the cardiac catheterization lab by Dr. Ch and underwent circumflex stenting, prior to this patient had no documented history of hypertension, no diabetes, no hyperlipidemia, he is a smoker. Patient states that the day before he went home he had some chest discomfort so they kept him an additional 24 hours, on the morning of April 10 2 was feeling well not having any chest discomfort and he was discharged home. On arrival home the patient again developed a tightness and heaviness in his chest, and states that it felt hard to take a deep breath, he also had an unusual sensation in his throat where he Feeling like he needed to clear his throat. According to the patient the symptoms were similar to when he presented last week although this time much more severe. His EKG on arrival here showed a normal sinus rhythm with no acute changes. Subsequent EKG showed normal sinus rhythm with no acute changes. White blood cell count 13.2, hemoglobin 17.5, platelet count 264. Sodium 140, potassium 4.3, BUN 17 and creatinine 0.9. Troponin 0.09, 0.12, 0.129, 0.14. At the time of my examination this morning, patient states he was having significant chest tightness and pressure which she was reading at an 8-10 on a pain scale. We did do an EKG that didn't show any significant changes. 3 sublingual nitroglycerin were given which brought the pain down to a level of 3. The patient was seen in consultation by Dr. Abbey Stewart and advised to undergo cardiac catheterization by Dr. Christopher. The risks and the benefits again were explained to the patient in detail. Past Medical History Past Medical History: No Reported History, Chest Pain / Angina Additional Past Medical History / Comment(s): diverticulitis History of Any Multi-Drug Resistant Organisms: None Reported Past Surgical History: Heart Catheterization With Stent, Hernia Repair, Orthopedic Surgery Additional Past Surgical History / Comment(s): lt shoulder and lt knee, colonoscopy 3 years ago with polypectomy, possible precancerous, stent to CIRC on the 04/08/19 Past Anesthesia/Blood Transfusion Reactions: No Reported Reaction Date of Last Stent Placement:: 04/08/19 Past Psychological History: No Psychological Hx Reported Additional Psychological History / Comment(s): Pt resides with his spouse. He is independent. Smoking Status: Former smoker Past Alcohol Use History: Occasional Additional Past Alcohol Use History / Comment(s): Patient was a smoker one pack per day for 40 years ago with her years ago. Patient normally drinks 2-4 beers per day but has decreased over the past month. He drinks 4-5 cups coffee per day. He lives at home with his . 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 Past Drug Use History: None Reported - Past Family History Father Family Medical History: COPD, Myocardial Infarction ([place]) Additional Family Medical History / Comment(s): Father at age 72 from emphysema with history of a myocardial infarction in his 60s. Mother Family Medical History: No Reported History Additional Family Medical History / Comment(s): Mother in her 80s from old age. Sister(s) Additional Family Medical History / Comment(s): Patient has 6 sisters that are all . 2 were twins in motor vehicle accident. Others have from old age. No history of cancers. Patient does not have any brothers. Patient has 3 children, 2 boys and one girl with no major medical problems. Medications and Allergies Home Medications Medication Instructions Recorded Confirmed Type Aspirin EC [Ecotrin Low Dose] 81 mg PO DAILY #30 tablet. 04/09/19 04/11/19 Rx Atorvastatin [Lipitor] 80 mg PO HS #30 tab 04/09/19 04/11/19 Rx Clopidogrel [Plavix] 75 mg PO DAILY #30 tab 04/09/19 04/11/19 Rx Fluticasone Nasal [place] [Flonase 2 spray EA NOSTRIL DAILY spr 04/09/19 04/11/19 Rx Nasal [place]] Loratadine [Claritin] 10 mg PO DAILY tab 04/09/19 04/11/19 Rx Losartan [Cozaar] 25 mg PO DAILY #30 tab 04/09/19 04/11/19 Rx Nitroglycerin Sl Tabs [Nitrostat] 0.4 mg SUBLINGUAL Q5M PRN #25 tab 04/09/19 04/11/19 Rx Sodium Chloride 0.65% Nasal [Deep 2 spray NASAL TID spray 04/09/19 04/11/19 Rx Sea (Saline)] Allergies Allergy/AdvReac Type Severity Reaction Status Date / Time No Known Allergies Allergy Verified 04/11/19 14:21 Physical Exam Vitals: Vital Signs Temp Pulse Pulse Resp BP BP Pulse Ox 04/12/19 08:38 97.9 F 63 18 134/91 95 04/12/19 07:34 97 04/12/19 04:00 97.6 F 64 18 102/61 95 04/12/19 00:40 97.6 F 61 18 102/67 95 04/12/19 00:15 61 18 105/66 95 04/12/19 00:00 64 18 113/73 96 04/11/19 23:50 65 18 113/76 96 04/11/19 23:40 63 18 111/77 98 04/11/19 23:30 68 18 160/101 96 04/11/19 23:22 69 18 125/86 96 04/11/19 23:12 66 18 137/81 93 L 04/11/19 23:05 59 L 18 95/51 90 L 04/11/19 23:00 43 L 18 77/50 88 L 04/11/19 22:55 67 18 134/81 94 L 04/11/19 22:45 67 18 145/84 95 04/11/19 22:40 19 04/11/19 22:30 97.8 F 61 18 137/83 96 04/11/19 21:00 18 04/11/19 20:42 98.0 F 66 19 124/94 99 04/11/19 18:48 64 19 128/84 95 04/11/19 17:33 68 17 121/83 95 04/11/19 13:58 97.7 F 71 24 133/92 98 Intake and Output 04/11/19 04/12/19 04/12/19 22:59 06:59 14:59 Intake Total 157.560 Output Total 875 Balance -717.440 Intake: Intake, IV Titration 157.560 Amount Heparin Sod,Pork in 0.45% 157.560 NaCl 25,000 unit In 0.45 % NaCl 1 250ml.bag @ 9.07 UNITS/KG/HR 9.997 mls/hr IV .Q24H [facility] Rx#: [id number] Output: Urine 875 Other: Voiding Method Indwelling Catheter Indwelling Catheter Indwelling Catheter Weight 99.5 kg PHYSICAL EXAMINATION: GENERAL: 69-year-old gentleman in mild distress with midsternal chest discomfort at the time of my examination HEENT: Head is atraumatic, normocephalic. Pupils equal, round. Sclera anicteric. Conjunctiva are clear. Mucous membranes of the mouth are moist. Neck is supple. There is no elevated jugular venous pressure. No carotid bruit is heard. HEART EXAMINATION: Heart S1, S2 normal. No murmur or gallop heard. CHEST EXAMINATION: Lungs are clear to auscultation and precussion. No chest wall tenderness is noted on palpation or with deep breathing. ABDOMEN: Soft, nontender. Bowel sounds are heard. No organomegaly noted. EXTREMITIES: 2+ peripheral pulses with no evidence of peripheral edema and no calf tenderness noted. NEUROLOGIC patient is awake, alert and oriented 3. . Results 04/11/19 14:13 04/11/19 14:13 Cardiac Enzymes 04/11/19 04/11/19 04/11/19 Range/Units 14:13 14:13 20:17 AST 35 (17-59) U/L Troponin I 0.092 H* 0.124 H* (0.000-0.034) ng/mL 04/11/19 04/12/19 Range/Units 23:15 01:54 AST (17-59) U/L Troponin I 0.129 H* 0.141 H* (0.000-0.034) ng/mL Coagulation 04/11/19 04/11/19 04/12/19 Range/Units 14:13 23:15 06:24 PT 9.7 (9.0-12.0) sec APTT 23.6 33.8 H 39.2 H (22.0-30.0) sec Lipids 04/12/19 Range/Units 01:54 Triglycerides 107 (<150) mg/dL Cholesterol 120 (<200) mg/dL HDL Cholesterol 43 (40-60) mg/dL CBC 04/11/19 Range/Units 14:13 WBC 13.2 H (3.8-10.6) k/uL RBC 5.69 (4.30-5.90) m/uL Hgb 17.5 (13.0-17.5) gm/dL Hct 52.1 (39.0-53.0) % Plt Count 264 (150-450) k/uL Comprehensive Metabolic Panel 04/11/19 Range/Units 14:13 Sodium 140 (137-145) mmol/L Potassium 4.3 (3.5-5.1) mmol/L Chloride 106 (98-107) mmol/L Carbon Dioxide 24 (22-30) mmol/L BUN 17 (9-20) mg/dL Creatinine 0.99 (0.66-1.25) mg/dL Glucose 98 (74-99) mg/dL Calcium 10.0 (8.4-10.2) mg/dL AST 35 (17-59) U/L ALT 57 (21-72) U/L Alkaline Phosphatase 64 (38-126) U/L Total Protein 7.6 (6.3-8.2) g/dL Albumin 4.7 (3.5-5.0) g/dL Current Medications Generic Name Dose Route Start Last Admin Trade Name Freq PRN Reason Stop Dose Admin Aspirin 325 mg 04/12/19 09:00 04/12/19 09:02 Aspirin PO 325 mg DAILY VINNY Administration Heparin Sodium/Sodium Chloride 250 mls @ 9.997 mls/hr 04/11/19 16:45 04/12/19 06:56 25,000 unit/ Sodium Chloride IV 15 units/kg/hr .Q24H VINNY 16.533 mls/hr Titration Protocol 9.07 UNITS/KG/HR Nitroglycerin/Dextrose 50 mg/ 250 mls @ 1.5 mls/hr 04/11/19 23:30 04/11/19 23:40 IV Solution IV 5 mcg/min .Q24H VINNY 1.5 mls/hr Administration Protocol 5 MCG/MIN Nitroglycerin 0.4 mg 04/11/19 17:09 04/12/19 09:02 Nitrostat SUBLINGUAL 0.4 mg Q5M PRN Administration Chest Pain Intake and Output 04/11/19 04/12/19 04/12/19 22:59 06:59 14:59 Intake Total 157.560 Output Total 875 Balance -717.440 Intake: Intake, IV Titration 157.560 Amount Heparin Sod,Pork in 0.45% 157.560 NaCl 25,000 unit In 0.45 % NaCl 1 250ml.bag @ 9.07 UNITS/KG/HR 9.997 mls/hr IV .Q24H [facility] Rx#: [id number] Output: Urine 875 Other: Voiding Method Indwelling Catheter Indwelling Catheter Indwelling Catheter Weight 99.5 kg 04/11/19 14:13 04/11/19 14:13 EKG Interpretations (text) EKG showed a normal sinus rhythm with no acute changes. Assessment and Plan Plan: Assessment and plan #1 symptoms of midsternal chest discomfort with abnormality in troponin suggesting acute coronary syndrome #2 recent hospitalization with circumflex stenting #3 hypertension #4 hyperlipidemia #5 epigastric discomfort Plan Patient was advised to be taken directly to the cardiac catheterization lab, the risks and the benefits were explained to him in detail and he is willing to proceed. Further recommendations will be based on these findings and patient's clinical course. DNP note has been reviewed, I agree with a documented findings and plan of care. Patient was seen and examined.
[2019-04-12] MEDS ORDERED: RX INFO: IV CONTRAST WAS GIVEN 1 EACH MISC MISCELLANE PRN (10:54)
[2019-04-12] MEDS ORDERED: SODIUM CHLORIDE 0.9% 1,000 ML IV SCH (11:00)
--- NOTE | 2019-04-12 11:26 | CC ---
CARDIAC CATHETERIZATION REPORT DATE OF SERVICE: April 12, 2019 PERFORMING PHYSICIAN: Peter Christopher MD, antisqueak worker. PROCEDURE PERFORMED: 1. Selective right and left coronary angiogram. 2. Left heart catheterization. INDICATION: This is a pleasant 69-year-old gentleman who underwent recently successful stenting of the left circumflex, presented back to the hospital complaining of chest discomfort with troponin trending up and consistent with acute non ST elevation myocardial infarction. Because of that, a heart catheterization was advised. APPROACH: Right common femoral artery. COMPLICATION: None. LEVEL OF SEDATION: Moderate with sedation length of 20 minutes. PROCEDURE DESCRIPTION: After obtaining an informed consent, the patient was brought to the cardiac slab lifting supervisor. The right common femoral artery was cannulated using micropuncture technique and a micropuncture wire passed easily then I placed a 6-Hungarian sheath in the right common femoral. After that, I did selective right and left coronary angiogram using JR4 and JL4 catheters. Left heart catheterization was performed using 6-Hungarian pigtail catheter. The procedure was completed without any complication. SELECTIVE CORONARY ANGIOGRAM: 1. The right coronary artery is a large caliber vessel and it is a dominant vessel. The RCA is angiographically normal. It bifurcates distally into PDA and PLV branches both appeared to be angiographically normal. 2. The left main is angiographically normal. It bifurcates into left circumflex and left anterior descending artery. 3. The left circumflex is a large caliber vessel and it is a nondominant vessel. The proximal circumflex appeared to be angiographically normal. The circumflex after that continues as a small caliber vessel in the AV groove. After it gives rise into a first OM branch which is a large caliber vessel with a stented segment with patent stent in it. 4. The LAD: The proximal LAD appeared to be angiographically normal. The mid LAD appeared to be normal and the LAD distally appeared to be normal as well. The LAD gives rise in the proximal and midportion into 2 diagonal branches, both appeared to be angiographically normal. HEMODYNAMICS: The left ventricular end-diastolic pressure was about 12 mmHg without significant gradient across the aortic valve. CONCLUSION: 1. Patent stent in the left circumflex coronary artery. 2. No evidence of coronary artery disease involving the LAD or RCA. POSTPROCEDURE MANAGEMENT: 1. Maximize medical treatment. 2. Follow up with the patient. MMODL / IJN: [id number] /
--- NOTE | 2019-04-12 12:12 | P.HPIM ---
History of Present Illness H&P Date: 04/12/19 This is a 69-year-old male patient of Dr. Lyle Garces with past medical history of coronary artery disease, diverticulitis, chronic sinus drainage, remote history of tobacco use and dependence, alcohol abuse. Patient recently presented to the hospital with complaints of at least 1 month he has had nausea, fatigue and "heavy breathing" He also complains of weakness in his arms and they feel heavy. Patient underwent Persantine stress test that was positive and patient went for heart catheterization with Dr. Christopher finding severe single-vessel coronary artery disease in the mid left circumflex and successful stenting of the mid left circumflex. Patient was discharged home on April 08. During his stay he did have episodes of nausea shortness of breath and also continued throat clearing but these were all resolved on Thursday the time of discharge. Echocardiogram revealed EF of 60-65% with mild concentric left ventricular hypertrophy, mild aortic valve sclerosis, aortic root dilated at 3.8 cm. Patient now presents with complaints of chest pain difficulty breathing. He also has pain radiating to the back of his neck and into his arm. He is unable to take a deep breath. He has increased pain with exertion. Patient took 3 nitroglycerin at home without improvement. Patient was seen in the emergency center and admitted to the cardiac stepdown unit. He was started on a heparin drip and during the night started on a nitroglycerin drip as well. Patient had episode this morning of severe pain and 3 nitroglycerin were given and Young catheter was placed as he was bedbound. He had a drop in his blood pressure after nitroglycerin down to 112/79. His pulse ox also dropped down to the 80s and was placed on 8 L nasal cannula. Patient has been seen by cardiology and plan for heart catheterization this morning. Repeat EKG did not show any significant changes. Troponins 0.124, 0.129, 0.141. Triglycerides 107, cholesterol 120, LDL 56, HDL 43. D-dimer 0.34. Patient went for heart catheterization with Dr. Christopher the fall patent stent in the left circumflex. No evidence of coronary artery disease in the involving the LAD or RCA. Recommendations for maximizing medical therapy. Review Of Systems: Constitutional: No fever, no chills, no night sweats. No weight change. Reports weakness, reports fatigue. No daytime sleepiness. EENT: No headache. No blurred vision or double vision, no loss of vision. No loss of Hearing, no ringing in the ears, no dizziness. No nasal drainage or congestion. No epistaxis. No sore throat. Lungs: No shortness of breath, cough, no sputum production. No wheezing. Cardiovascular: Reports chest pain, no lower extremity edema. No palpitations. No paroxysmal nocturnal dyspnea. No orthopnea. No lightheadedness or d izziness. No syncopal episodes. Abdominal: No abdominal pain. Reports nausea, no vomiting. No diarrhea. No constipation. No bloody or tarry stools. No loss of appetite. Genitourinary: No dysuria, increased frequency, urgency. No urinary retention. Musculoskeletal: No myalgias. No muscle weakness, no gait dysfunction, no frequent falls. No back pain. No neck pain. Integumentary: No wounds, no lesions. No rash or pruritus. No unusual bruising. No change in hair or nails. Neurologic: No aphasia. No facial droop. No change in mentation. No head injury. No headache. No paralysis. No paresthesia. Psychiatric: No depression. No anxiety. No mood swings. Endocrine: No abnormal blood sugars. No weight change. No excessive sweating or thirst. No cold intolerance. Past Medical History Past Medical History: No Reported History, Coronary Artery Disease (CAD), Chest Pain / Angina, Hypertension Additional Past Medical History / Comment(s): diverticulitis History of Any Multi-Drug Resistant Organisms: None Reported Past Surgical History: Heart Catheterization With Stent, Hernia Repair, Orthopedic Surgery Additional Past Surgical History / Comment(s): lt shoulder and lt knee, colonoscopy 3 years ago with polypectomy, possible precancerous, stent to CIRC on the 04/08/19 Past Anesthesia/Blood Transfusion Reactions: No Reported Reaction Date of Last Stent Placement:: 04/08/19 Past Psychological History: No Psychological Hx Reported Additional Psychological History / Comment(s): Pt resides with his spouse. He is independent. Smoking Status: Former smoker Past Alcohol Use History: Occasional Additional Past Alcohol Use History / Comment(s): Patient was a smoker one pack per day for 40 years ago with her years ago. Patient normally drinks 2-4 beers per day but has decreased over the past month. He drinks 4-5 cups coffee per day. He lives at home with his . 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 Past Drug Use History: None Reported - Past Family History Father Family Medical History: COPD, Myocardial Infarction ([place]) Additional Family Medical History / Comment(s): Father at age 72 from emphysema with history of a myocardial infarction in his 60s. Mother Family Medical History: No Reported History Additional Family Medical History / Comment(s): Mother in her 80s from old age. Sister(s) Additional Family Medical History / Comment(s): Patient has 6 sisters that are all . 2 were twins in motor vehicle accident. Others have from old age. No history of cancers. Patient does not have any brothers. Patient has 3 children, 2 boys and one girl with no major medical problems. Medications and Allergies Home Medications Medication Instructions Recorded Confirmed Type Aspirin EC [Ecotrin Low Dose] 81 mg PO DAILY #30 tablet. 04/09/19 04/11/19 Rx Atorvastatin [Lipitor] 80 mg PO HS #30 tab 04/09/19 04/11/19 Rx Clopidogrel [Plavix] 75 mg PO DAILY #30 tab 04/09/19 04/11/19 Rx Fluticasone Nasal [place] [Flonase 2 spray EA NOSTRIL DAILY spr 04/09/19 04/11/19 Rx Nasal [place]] Loratadine [Claritin] 10 mg PO DAILY tab 04/09/19 04/11/19 Rx Losartan [Cozaar] 25 mg PO DAILY #30 tab 04/09/19 04/11/19 Rx Nitroglycerin Sl Tabs [Nitrostat] 0.4 mg SUBLINGUAL Q5M PRN #25 tab 04/09/19 04/11/19 Rx Sodium Chloride 0.65% Nasal [Deep 2 spray NASAL TID spray 04/09/19 04/11/19 Rx Sea (Saline)] Allergies Allergy/AdvReac Type Severity Reaction Status Date / Time No Known Allergies Allergy Verified 04/11/19 14:21 Physical Exam Vitals: Vital Signs Temp Pulse Pulse Resp BP BP Pulse Ox 04/12/19 08:38 97.9 F 63 18 134/91 95 04/12/19 07:34 97 04/12/19 04:00 97.6 F 64 18 102/61 95 04/12/19 00:40 97.6 F 61 18 102/67 95 04/12/19 00:15 61 18 105/66 95 04/12/19 00:00 64 18 113/73 96 04/11/19 23:50 65 18 113/76 96 04/11/19 23:40 63 18 111/77 98 04/11/19 23:30 68 18 160/101 96 04/11/19 23:22 69 18 125/86 96 04/11/19 23:12 66 18 137/81 93 L 04/11/19 23:05 59 L 18 95/51 90 L 04/11/19 23:00 43 L 18 77/50 88 L 04/11/19 22:55 67 18 134/81 94 L 04/11/19 22:45 67 18 145/84 95 04/11/19 22:40 19 04/11/19 22:30 97.8 F 61 18 137/83 96 04/11/19 21:00 18 04/11/19 20:42 98.0 F 66 19 124/94 99 04/11/19 18:48 64 19 128/84 95 04/11/19 17:33 68 17 121/83 95 04/11/19 13:58 97.7 F 71 24 133/92 98 Intake and Output 04/11/19 04/12/19 04/12/19 22:59 06:59 14:59 Intake Total 157.560 Output Total 875 Balance -717.440 Intake: Intake, IV Titration 157.560 Amount Heparin Sod,Pork in 0.45% 157.560 NaCl 25,000 unit In 0.45 % NaCl 1 250ml.bag @ 9.07 UNITS/KG/HR 9.997 mls/hr IV .Q24H [facility] Rx#: [id number] Output: Urine 875 Other: Voiding Method Indwelling Catheter Indwelling Catheter Indwelling Catheter Weight 99.5 kg General appearance: mild to moderate acute distress, obese. - EENT Eyes: PERRLA, normal appearance ENT: hard of hearing - Neck Neck: no lymphadenopathy - Respiratory Respiratory: bilateral: CTA - Cardiovascular Rhythm: regular Heart sounds: normal: S1, S2 Abnormal Heart Sounds: no systolic murmur, no diastolic murmur - Gastrointestinal General gastrointestinal: normal bowel sounds, soft, no tenderness - Integumentary Integumentary: normal turgor, right wrist without hematoma. - Neurologic Neurologic: CNII-XII intact - Musculoskeletal Musculoskeletal: no right sided weakness, no left sided weakness - Psychiatric Psychiatric: A&O x's 3, appropriate affect, intact judgment & insight Results CBC & Chem 7: 04/11/19 14:13 04/11/19 14:13 Labs: Abnormal Lab Results - Last 24 Hours (Table) 04/11/19 04/11/19 04/11/19 Range/Units 14:13 14:13 20:17 WBC 13.2 H (3.8-10.6) k/uL Neutrophils # 9.1 H (1.3-7.7) k/uL APTT (22.0-30.0) sec Troponin I 0.092 H* 0.124 H* (0.000-0.034) ng/mL 04/11/19 04/11/19 04/12/19 Range/Units 23:15 23:15 01:54 WBC (3.8-10.6) k/uL Neutrophils # (1.3-7.7) k/uL APTT 33.8 H (22.0-30.0) sec Troponin I 0.129 H* 0.141 H* (0.000-0.034) ng/mL 04/12/19 Range/Units 06:24 WBC (3.8-10.6) k/uL Neutrophils # (1.3-7.7) k/uL APTT 39.2 H (22.0-30.0) sec Troponin I (0.000-0.034) ng/mL Thrombosis Risk Factor Assmnt - Choose All That Apply Any of the Below Risk Factors Present?: No Other Risk Factors: Yes Each Risk Factor Represents 2 Points: Age 61-74 years Thrombosis Risk Factor Assessment Total Risk Factor Score: 2 Thrombosis Risk Factor Assessment Level: Low Risk Assessment and Plan Plan: 1. Chest pain with elevated troponins suggestive of acute non-ST elevated myocardial infarction with normal heart catheterization. Continue aspirin, atorvastatin, Plavix, losartan. Monitor for an additional 24 hours. 2. Hypertension. Continue losartan. 3. Recent sinus infection recently treated with 2 courses of antibiotics. Recommend Flonase and Zyrtec for chronic sinus drainage. 4. Remote history of tobacco use and dependence, patient quit 3 years ago. 5. Alcohol abuse. Patient usually drinks 2-4 beers per day but decreased over the past month. 6. History of diverticulitis, stable. Polyps on last colonoscopy 3 years ago. 7. Suspected sleep apnea. Patient will need outpatient sleep study done. CODE STATUS: Full code Patient will be admitted to the hospital for a minimum of 2 night stay. Discharge plan: Return home Impression and plan of care have been directed as dictated by the signing physician. Rebeca Lancaster nurse practitioner acting as scribe for signing physician.
[2019-04-12] MEDS: CLOPIDOGREL 75 MG TAB PO SCH (12:28)
[2019-04-12] MEDS: LORATADINE 10 MG TAB PO SCH (12:28)
[2019-04-12] MEDS: LOSARTAN 25 MG TAB PO SCH (12:28)
[2019-04-12] MEDS: SODIUM CHLORIDE 0.65% NASAL SPRAY 44 ML BTL NASAL SCH ×2 (16:18→20:15)
[2019-04-12] MEDS: ATORVASTATIN 80 MG TAB PO SCH (20:14)
[2019-04-13] MEDS ORDERED: CLOPIDOGREL 75 MG TAB PO SCH (09:00)
[2019-04-13] MEDS: CLOPIDOGREL 75 MG TAB PO SCH (09:01)
[2019-04-13] MEDS: ASPIRIN 81 MG PO SCH (09:02)
[2019-04-13] MEDS: FLUTICASONE 50MCG/SPRAY NASAL 16GM EA NOSTRIL SCH (09:02)
[2019-04-13] MEDS: SODIUM CHLORIDE 0.65% NASAL SPRAY 44 ML BTL NASAL SCH ×3 (09:02→20:08)
[2019-04-13] MEDS: LORATADINE 10 MG TAB PO SCH (09:02)
[2019-04-13] MEDS: LOSARTAN 25 MG TAB PO SCH (09:02)
--- NOTE | 2019-04-13 12:22 | CDI ---
Documentation Clarification Form Date: 04/13/2019 11:32:42 AM From: Sera More RN, CCDS Admit Date: 04/11/2019 5:09:00 PM Patient Name: Bhupendra Rojo Visit Number: [id number] Discharge Date: ATTENTION: The Clinical Documentation Specialists (CDI) and [facility] Coding Staff appreciate your assistance in clarifying documentation. Please respond to the clarification below the line at the bottom and electronically sign. The CDI & [facility] Coding staff will review the response and follow-up if needed. Please note: Queries are made part of the Legal Health Record. If you have any questions, please contact the author of this message via ITS. Dr. Víctor Pablo Chest pain with elevated troponins suggestive of an acute non-ST elevated myocardial infarction is documented in the H/P and further clarification is needed. Patient History/Risk Factors: Coronary Artery Disease, Angina, Hypertension Clinical Indicators: 69 year-old male with recent heart catheterization finding severe single-vessel coronary artery disease in the mid left circumflex and successful stenting of the mid left circumflex. He now present with complaints of chest pain and difficulty breathing. He had a heart catheterization that showed patent stent in the left circumflex. No evidence of coronary artery disease in the LAD or RCA Troponin: 0.124, 0.129, 0.141 EKG Results: normal sinus rhythm at 60 bpm, no ST segment elevation or depression or T wave abnormalities are noted Treatment: Heart Catheterization Heparin drip Nitroglycerin drip Plavix PO ASA PO Atorvastatin PO / Cardiology Consult: Symptoms of midsternal chest discomfort with abnormality in troponin suggesting acute coronary syndrome. In order to capture the severity of condition and necessary documentation specificity, please clarify: Acute non ST elevation myocardial infarction Ruled in Acute non ST elevation myocardial infarction Ruled out Unstable Angina with CAD Ruled in Unstable Angina with CAD Ruled out Unable to determine Other Condition, please specify (Last Revision: August 2017) Acute NSTEMI ruled out MTDD
--- NOTE | 2019-04-13 13:06 | P.PN ---
Subjective Progress Note Date: 04/13/19 This is a 69-year-old gentleman with recent hospitalization, symptoms of chest discomfort at that time with negative enzymes was taken to the cardiac catheterization lab by Dr. Ch and underwent circumflex stenting, prior to this patient had no documented history of hypertension, no diabetes, no hyperlipidemia, he is a smoker. Patient states that the day before he went home he had some chest discomfort so they kept him an additional 24 hours, on the morning of April 10 2 was feeling well not having any chest discomfort and he was discharged home. On arrival home the patient again developed a tightness and heaviness in his chest, and states that it felt hard to take a deep breath, he also had an unusual sensation in his throat where he Feeling like he needed to clear his throat. According to the patient the symptoms were similar to when he presented last week although this time much more severe. His EKG on arrival here showed a normal sinus rhythm with no acute changes. Subsequent EKG showed normal sinus rhythm with no acute changes. White blood cell count 13.2, hemoglobin 17.5, platelet count 264. Sodium 140, potassium 4.3, BUN 17 and creatinine 0.9. Troponin 0.09, 0.12, 0.129, 0.14. At the time of my examination this morning, patient states he was having significant chest tightness and pressure which she was reading at an 8-10 on a pain scale. We did do an EKG that didn't show any significant changes. 3 sublingual nitroglycerin were given which brought the pain down to a level of 3. The patient was seen in consultation by Dr. Abbey Stewart and advised to undergo cardiac catheterization by Dr. Christopher. The risks and the benefits again were explained to the patient in detail. 04/13/2019 Patient underwent a cardiac catheterization yesterday, it revealed a patent stent in the left circumflex artery with no evidence of coronary artery disease involving the LAD or RCA and medical therapy was advised. Patient was seen and examined this morning he denied any chest pain but still had an uncomfortable feeling in his throat with production of phlegm buildup. Blood pressure 124/74 with a heart rate in the 60s, 96% on room air. Objective - Vital Signs Vital signs: Vital Signs Temp 97.8 F 04/13/19 08:50 Pulse 62 04/13/19 08:50 Resp 20 04/13/19 08:50 BP 124/74 04/13/19 08:50 Pulse Ox 96 04/13/19 08:50 Intake & Output 04/12/19 04/13/19 04/13/19 18:59 06:59 18:59 Intake Total 800.977 240 360 Output Total 400 Balance 400.977 240 360 Weight 111.7 kg Intake: IV 150 Intake, IV Titration 50.977 Amount Heparin Sod,Pork in 0.45% 50.977 NaCl 25,000 unit In 0.45 % NaCl 1 250ml.bag @ 9.07 UNITS/KG/HR 9.997 mls/hr IV .Q24H [facility] Rx#: [id number] Oral 600 240 360 Output: Urine 400 Other: Voiding Method Indwelling Catheter Toilet # Voids 1 1 # Bowel Movements 1 - Exam PHYSICAL EXAMINATION: GENERAL: 69-year-old gentleman in mild distress with midsternal chest discomfort at the time of my examination HEENT: Head is atraumatic, normocephalic. Pupils equal, round. Sclera anicteric. Conjunctiva are clear. Mucous membranes of the mouth are moist. Neck is supple. There is no elevated jugular venous pressure. No carotid bruit is heard. HEART EXAMINATION: Heart S1, S2 normal. No murmur or gallop heard. CHEST EXAMINATION: Lungs are clear to auscultation and precussion. No chest wall tenderness is noted on palpation or with deep breathing. ABDOMEN: Soft, nontender. Bowel sounds are heard. No organomegaly noted. EXTREMITIES: 2+ peripheral pulses with no evidence of peripheral edema and no calf tenderness noted. Right groin is soft, no evidence of any hematoma. NEUROLOGIC patient is awake, alert and oriented 3. - Labs CBC & Chem 7: 04/11/19 14:13 04/11/19 14:13 Assessment and Plan Plan: Assessment and plan #1 symptoms of midsternal chest discomfort with abnormality in troponin suggesting acute coronary syndrome #2 recent hospitalization with circumflex stenting #3 hypertension #4 hyperlipidemia #5 epigastric discomfort Plan Cardiac catheterization revealed a patent stent in the circumflex with no other obstructive coronary artery disease. From cardiology's perspective, patient may be able to be discharged home once cleared by primary and we will make him a follow-up appointment in the office post discharge. DNP note has been reviewed, I agree with a documented findings and plan of care. Patient was seen and examined.
--- NOTE | 2019-04-13 15:23 | P.PN ---
Subjective Progress Note Date: 04/13/19 This is a 69-year-old male patient of Dr. Lyle Garces with past medical history of coronary artery disease, diverticulitis, chronic sinus drainage, remote history of tobacco use and dependence, alcohol abuse. Patient recently presented to the hospital with complaints of at least 1 month he has had nausea, fatigue and "heavy breathing" He also complains of weakness in his arms and they feel heavy. Patient underwent Persantine stress test that was positive and patient went for heart catheterization with Dr. Christopher finding severe single-vessel coronary artery disease in the mid left circumflex and successful stenting of the mid left circumflex. Patient was discharged home on April 08. During his stay he did have episodes of nausea shortness of breath and also continued throat clearing but these were all resolved on Thursday the time of discharge. Echocardiogram revealed EF of 60-65% with mild concentric left ventricular hypertrophy, mild aortic valve sclerosis, aortic root dilated at 3.8 cm. Patient now presents with complaints of chest pain difficulty breathing. He also has pain radiating to the back of his neck and into his arm. He is unable to take a deep breath. He has increased pain with exertion. Patient took 3 nitroglycerin at home without improvement. Patient was seen in the emergency center and admitted to the cardiac stepdown unit. He was started on a heparin drip and during the night started on a nitroglycerin drip as well. Patient had episode this morning of severe pain and 3 nitroglycerin were given and Young catheter was placed as he was bedbound. He had a drop in his blood pressure after nitroglycerin down to 112/79. His pulse ox also dropped down to the 80s and was placed on 8 L nasal cannula. Patient has been seen by cardiology and plan for heart catheterization this morning. Repeat EKG did not show any significant changes. Troponins 0.124, 0.129, 0.141. Triglycerides 107, cholesterol 120, LDL 56, HDL 43. D-dimer 0.34. Patient went for heart catheterization with Dr. Christopher the fall patent stent in the left circumflex. No evidence of coronary artery disease in the involving the LAD or RCA. Recommendations for maximizing medical therapy. 04/13: Patient's symptoms are completely resolved this morning. Blood pressure 124/74 with a heart rate in the 60s, 96% on room air. The patient is continued on the same cardiac meds. The patient has been cleared for discharge by cardiology. We will ask GI to evaluate the patient for his vague symptoms of nausea and pain that may be coming from his abdomen radiating up to in his ches t. He denies any history of GERD and has not been on any medications for this in the past. He denies any abdominal pain at this time. Objective - Vital Signs Vital signs: Vital Signs Temp 98.5 F 04/13/19 00:23 Pulse 56 L 04/13/19 03:02 Resp 18 04/13/19 03:02 BP 139/80 04/13/19 03:02 Pulse Ox 97 04/13/19 03:02 Intake & Output 04/12/19 04/13/19 04/13/19 18:59 06:59 18:59 Intake Total 800.977 240 360 Output Total 400 Balance 400.977 240 360 Weight 111.7 kg Intake: IV 150 Intake, IV Titration 50.977 Amount Heparin Sod,Pork in 0.45% 50.977 NaCl 25,000 unit In 0.45 % NaCl 1 250ml.bag @ 9.07 UNITS/KG/HR 9.997 mls/hr IV .Q24H [facility] Rx#: [id number] Oral 600 240 360 Output: Urine 400 Other: Voiding Method Indwelling Catheter Toilet # Voids 1 # Bowel Movements 1 - Exam Review Of Systems: Constitutional: No fever, no chills, no night sweats. No weight change. denies weakness, denies fatigue. No daytime sleepiness. EENT: No headache. No blurred vision or double vision, no loss of vision. No loss of Hearing, no ringing in the ears, no dizziness. No nasal drainage or congestion. No epistaxis. No sore throat. Lungs: No shortness of breath, cough, no sputum production. No wheezing. Cardiovascular: Denies chest pain, no lower extremity edema. No palpitations. No paroxysmal nocturnal dyspnea. No orthopnea. No lightheadedness or di zziness. No syncopal episodes. Abdominal: No abdominal pain. Denies nausea, no vomiting. No diarrhea. No constipation. No bloody or tarry stools. No loss of appetite. Genitourinary: No dysuria, increased frequency, urgency. No urinary retention. Musculoskeletal: No myalgias. No muscle weakness, no gait dysfunction, no frequent falls. No back pain. No neck pain. Integumentary: No wounds, no lesions. No rash or pruritus. No unusual bruising. No change in hair or nails. Neurologic: No aphasia. No facial droop. No change in mentation. No head injury. No headache. No paralysis. No paresthesia. Psychiatric: No depression. No anxiety. No mood swings. Endocrine: No abnormal blood sugars. No weight change. No excessive sweating or thirst. No cold intolerance. General appearance: No acute distress, obese. - EENT Eyes: PERRLA, normal appearance ENT: hard of hearing - Neck Neck: no lymphadenopathy - Respiratory Respiratory: bilateral: CTA - Cardiovascular Rhythm: regular Heart sounds: normal: S1, S2 Abnormal Heart Sounds: no systolic murmur, no diastolic murmur - Gastrointestinal General gastrointestinal: normal bowel sounds, soft, no tenderness - Integumentary Integumentary: normal turgor, right wrist without hematoma. - Neurologic Neurologic: CNII-XII intact - Musculoskeletal Musculoskeletal: no right sided weakness, no left sided weakness - Psychiatric Psychiatric: A&O x's 3, appropriate affect, intact judgment & insight - Labs CBC & Chem 7: 04/11/19 14:13 04/11/19 14:13 Assessment and Plan Plan: 1. Chest pain with elevated troponins and acute non-ST elevated myocardial infarction has been ruled out. Continue aspirin, atorvastatin, Plavix, losartan. GI consult requested. Patient will be transferred to [facility] floor 2. Hypertension. Continue losartan. 3. Recent sinus infection recently treated with 2 courses of antibiotics. Recommend Flonase and Zyrtec for chronic sinus drainage. 4. Remote history of tobacco use and dependence, patient quit 3 years ago. 5. Alcohol abuse. Patient usually drinks 2-4 beers per day but decreased over the past month. 6. History of diverticulitis, stable. Polyps on last colonoscopy 3 years ago. 7. Suspected sleep apnea. Patient will need outpatient sleep study done. CODE STATUS: Full code Discharge plan: Return home Impression and plan of care have been directed as dictated by the signing physician. Rebeca Lancaster nurse practitioner acting as scribe for signing philippe [email or web address].
--- NOTE | 2019-04-13 16:43 | ECHOF ---
Referral Reason:chest pain MEASUREMENTS -------- HEIGHT: 180.3 cm WEIGHT: 99.3 kg BP: IVSd: 1.4 cm (0.6 - 1.1) LVIDd: 4.2 cm (3.9 - 5.3) LVPWd: 1.6 cm (0.6 - 1.1) IVSs: 2.3 cm LVIDs: 2.6 cm LVPWs: 1.8 cm FINDINGS -------- Sinus rhythm. LIMITED STUDY S/P CATH The left ventricular size is normal. Overall left ventricular systolic function is normal with, an EF between 55 - 60 %. Lumason used There is no pericardial effusion. CONCLUSIONS -------- 1. Sinus rhythm. 2. The left ventricular size is normal. 3. Overall left ventricular systolic function is normal with, an EF between 55 - 60 %. 4. Lumason used 5. There is no pericardial effusion. SALES AND SERVICE AGENT: Ivelisse Bello RDCS
[2019-04-13] MEDS: ATORVASTATIN 80 MG TAB PO SCH (20:07)
[2019-04-14] MEDS: FLUTICASONE 50MCG/SPRAY NASAL 16GM EA NOSTRIL SCH (08:31)
[2019-04-14] MEDS: LOSARTAN 25 MG TAB PO SCH (08:36)
[2019-04-14] MEDS: ASPIRIN 81 MG PO SCH (08:36)
[2019-04-14] MEDS: CLOPIDOGREL 75 MG TAB PO SCH (08:36)
[2019-04-14] MEDS: SODIUM CHLORIDE 0.65% NASAL SPRAY 44 ML BTL NASAL SCH ×3 (08:36→21:19)
[2019-04-14] MEDS: LORATADINE 10 MG TAB PO SCH (08:37)
[2019-04-14] MEDS ORDERED: PANTOPRAZOLE 40 MG TABLET PO SCH (09:45)
[2019-04-14] MEDS: PANTOPRAZOLE 40 MG/10 ML VIAL IVP SCH ×2 (09:48→21:19)
[2019-04-14] MEDS: ONDANSETRON 4 MG/2 ML VIAL IVP SCH ×3 (12:28→23:37)
--- NOTE | 2019-04-14 13:07 | CT ---
EXAMINATION TYPE: CT neck chest w con DATE OF EXAM: 04/14/2019 COMPARISON: None HISTORY: Shortness of breath and dysphagia. CT DLP: 1611.9 mGycm, Automated exposure control for dose reduction was used. CONTRAST: Performed injected with 100 mL of Isovue M300. TECHNIQUE: Axial images were obtained at 5 mm thick sections. Reconstructed images are reviewed on [employer] computer in the coronal plane. FINDINGS: Portion of the thyroid visualized is normal. There is a 0.4 cm round nodule within the posterior left upper lung field appears calcified and is li lonny a granuloma. No enlarged mediastinal or hilar adenopathy is evident. The ascending aorta diameter at the level o f the main pulmonary artery is 3.6 cm. The main pulmonary artery diameter at the bifurcation is 2.[address] sections are obtained through the upper abdomen. Abdomen is essentially unremarkable. IMPRESSIONS: 1. Probable calcified granuloma left upper lobe. 2. No suspicious acute chest CT findings. EXAMINATION TYPE: CT neck chest w con DATE OF EXAM: 04/14/2019 COMPARISON: None HISTORY: Shortness of breath and dysphagia. CT DLP: 1611.9 mGycm CONTRAST: Patient injected with 100 mL of Isovue M300. TECHNIQUE: Axial images at 3 mm thick sections. Reconstructed images in the coronal plane and sagitt al plane are reviewed. FINDINGS: Limited CT sections are obtained the lung apices. The lung apices appear clear. CT neck: The torus tubarius and fossa of Rosenmuller are normal. Low Heel Builder spaces are normal. Para nasal sinuses and mastoid air cells are clear. Parotid glands appear normal and symmetrical. Submandibular glands, are normal. Parapharyngeal spac es are normal. No suspicious adenopathy is evident. There are some borderline sizer jugulodigastric lymph nodes present bilaterally measuring 1.0 cm on the right and 0.9 cm on the left The hypopharynx appears within normal limits. Vocal cord level appear symmetrical. Thyroid as visualized is normal. Osseous structures are normal. IMPRESSIONS: 1. Normal CT neck
--- NOTE | 2019-04-14 13:15 | P.CONS ---
History of Present Illness - Reason for Consult Consult date: 04/14/19 nausea Requesting physician: Víctor Pablo - Chief Complaint Nausea - History of Present Illness 69-year-old gentleman with a history of chronic alcohol consumption, coronary artery disease status post recent PCI stent April 09 with re-surveillance cardiac catheterization 2 days ago no evidence of stent occlusion secondary to symptoms of nausea elevated troponin. Patient has been experiencing a globus type sensation since December with constant clearing of his throat chest congestion and mid chest heaviness. PCP about his symptoms were related to chronic sinusitis placed on a Z-Charles a few weeks ago without improvement. Symptoms have worsened over the last few weeks with 1 episode of nonbloddy emesis. Denies hematemesis hematochezia melena weight loss fever or chills. Denies dysphagia odynophagia. No history of peptic ulcer disease or EGD evaluation. Colonoscopy a few years ago to his memory reported colonic diverticular disease. Last alcoholic drink s everal weeks ago. No changes in appetite. Abdominal ultrasound reported hepatic steatosis. Hemoglobin 17.5. White count 13.2. Platelet 264. INR 0.9. LFTs within normal limits. Review of Systems RConstitutional: Denies fever, chills, sweats, weight gain, or loss. HEENT: Negative for migraines, blurred vision or loss, earaches, drainage, tinn itus, oral mucosal lesions, dysphagia, or odynophagia. Cardiac: Negative for chest pain, arrhythmias, or palpitation. Respiratory: Negative for shortness of breath, hemoptysis, cough, or sputum production. Gastrointestinal: See HPI for pertinent findings. Genitourinary: Negative for hematuria, urgency, frequency, polyuria, dysuria, or penile discharge. Musculoskeletal: Negative for muscle aches, swelling, arthritis, and arthralgias. Neurologic: Negative for stroke or TIA. Endocrine: Negative for thyroid problems. Skin: Negative for rash or itching. Psychiatric: Negative history for depression and anxietyale Past Medical History Past Medical History: No Reported History, Coronary Artery Disease (CAD), Chest Pain / Angina, Hypertension Additional Past Medical History / Comment(s): diverticulitis History of Any Multi-Drug Resistant Organisms: None Reported Past Surgical History: Heart Catheterization With Stent, Hernia Repair, Orthopedic Surgery Additional Past Surgical History / Comment(s): lt shoulder and lt knee, colonoscopy 3 years ago with polypectomy, possible precancerous, stent to CIRC on the 04/08/19 Past Anesthesia/Blood Transfusion Reactions: No Reported Reaction Date of Last Stent Placement:: 04/08/19 Past Psychological History: No Psychological Hx Reported Additional Psychological History / Comment(s): Pt resides with his spouse. He is independent. Smoking Status: Former smoker Past Alcohol Use History: Occasional Additional Past Alcohol Use History / Comment(s): Patient was a smoker one pack per day for 40 years ago with her years ago. Patient normally drinks 2-4 beers per day but has decreased over the past month. He drinks 4-5 cups coffee per day. He lives at home with his . 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 Past Drug Use History: None Reported - Past Family History Father Family Medical History: COPD, Myocardial Infarction ([place]) Additional Family Medical History / Comment(s): Father at age 72 from emphysema with history of a myocardial infarction in his 60s. Mother Family Medical History: No Reported History Additional Family Medical History / Comment(s): Mother in her 80s from old age. Sister(s) Additional Family Medical History / Comment(s): Patient has 6 sisters that are all . 2 were twins in motor vehicle accident. Others have from old age. No history of cancers. Patient does not have any brothers. Patient has 3 children, 2 boys and one girl with no major medical problems. Medications and Allergies Home Medications Medication Instructions Recorded Confirmed Type Aspirin EC [Ecotrin Low Dose] 81 mg PO DAILY #30 tablet. 04/09/19 04/11/19 Rx Atorvastatin [Lipitor] 80 mg PO HS #30 tab 04/09/19 04/11/19 Rx Clopidogrel [Plavix] 75 mg PO DAILY #30 tab 04/09/19 04/11/19 Rx Fluticasone Nasal [place] [Flonase 2 spray EA NOSTRIL DAILY spr 04/09/19 04/11/19 Rx Nasal [place]] Loratadine [Claritin] 10 mg PO DAILY tab 04/09/19 04/11/19 Rx Losartan [Cozaar] 25 mg PO DAILY #30 tab 04/09/19 04/11/19 Rx Nitroglycerin Sl Tabs [Nitrostat] 0.4 mg SUBLINGUAL Q5M PRN #25 tab 04/09/19 04/11/19 Rx Sodium Chloride 0.65% Nasal [Deep 2 spray NASAL TID spray 04/09/19 04/11/19 Rx Sea (Saline)] Allergies Allergy/AdvReac Type Severity Reaction Status Date / Time No Known Allergies Allergy Verified 04/11/19 14:21 Physical Exam Vitals: Vital Signs Temp Pulse Resp BP Pulse Ox 04/14/19 08:20 98.7 F 72 16 120/80 93 L 04/14/19 08:00 16 04/14/19 03:23 98.1 F 65 18 145/81 94 L 04/13/19 23:35 61 18 04/13/19 23:00 61 18 119/75 94 L 04/13/19 20:00 97.9 F 65 18 149/81 95 04/13/19 16:00 98.3 F 60 20 131/76 94 L Intake and Output 04/13/19 04/14/19 04/14/19 22:59 06:59 14:59 Intake Total 480 600 240 Balance 480 600 240 Intake: Oral 480 600 240 Other: Voiding Method Toilet Toilet Toilet # Voids 1 1 Weight 111.2 kg NGeneral appearance: The patient is alert, oriented, in no acute distress. HET: Head is normocephalic and atraumatic. Pupils are equal and reactive. Oropharynx is clear without lesions. Neck: Supple without lymphadenopathy. Trachea midline. Heart: S1 S2. Regular rate and rhythm. Lungs: No crackles or wheezes are heard. Abdomen: Soft, nontender, nondistended with bowel sounds. No peritoneal signs. No palpable organomegaly or masses. Extremities: Normal skin color and turgor. No cyanosis, rash, ulceration, clubbing, or edema. Radial and pedal pulses are 2/4 bilaterally. Neurological: No focal deficits. Strength and sensation are grossly intact.m Results CBC & Chem 7: 04/11/19 14:13 04/11/19 14:13 Assessment and Plan (1) Nausea Narrative/Plan: 69-year-old gentleman admitted with a four-month history of globus type feeling with chest congestion chest heaviness and intermittent nausea worsening over the last few weeks. Recent heart catheterization identified single-vessel coronary artery disease status post PCI stent with 3 surveillance heart catheterization 2 days ago reporting patency of stent. Long-standing history of chronic alcohol consumption. Underlying GERD exacerbation within the differential however underlying laryngeal esophageal mucosal lesion or motility disorder cannot be excluded. Current Visit: Yes Status: Acute Code(s): R11.0 - NAUSEA SNOMED Code(s): 868020415 (2) Chest heaviness Current Visit: Yes Status: Acute Code(s): R07.89 - OTHER CHEST PAIN SNOMED Code(s): 288225264 (3) CAD (coronary artery disease) Current Visit: Yes Status: Acute Code(s): I25.10 - ATHSCL HEART DISEASE OF [place] CORONARY ARTERY W/O ANG PCTRS SNOMED Code(s): 39716635 (4) H/O heart artery stent Current Visit: Yes Status: Acute Code(s): Z95.5 - PRESENCE OF CORONARY ANGIOPLASTY IMPLANT AND GRAFT SNOMED Code(s): 696696523 (5) EtOH dependence Current Visit: Yes Status: Acute Code(s): F10.20 - ALCOHOL DEPENDENCE, UNCOMPLICATED SNOMED Code(s): 96206374 Plan: 1. Recommend CT neck chest followed by EGD evaluation tomorrow. Diet as tolerated. Nothing by mouth after midnight. Case was discussed with attending Dr. Pablo. Possible ENT consult pending CT findings. GI prophylaxis Protonix 40 mg daily as well as Zofran 4 mg every 6 hours as needed. We'll follow clos ashlie with you. The manager presentation has discussed the risks, benefits and alternative therapies for the above-mentioned procedure and for both sedation/analgesia as well as necessary blood product administration, if indicated, as they pertain to this patient. The patient has indicated understanding and acceptance of the risks and procedures discussed. Thank you for this kind referral and the opportunity to participate in the care of your patient. This consultation was discussed with Dr. Patel. The impression and plan of care have been directed as dictated.
--- NOTE | 2019-04-14 14:10 | P.PN ---
Subjective Progress Note Date: 04/14/19 This is a 69-year-old male patient of Dr. Lyle Garces with past medical history of coronary artery disease, diverticulitis, chronic sinus drainage, remote history of tobacco use and dependence, alcohol abuse. Patient recently presented to the hospital with complaints of at least 1 month he has had nausea, fatigue and "heavy breathing" He also complains of weakness in his arms and they feel heavy. Patient underwent Persantine stress test that was positive and patient went for heart catheterization with Dr. Christopher finding severe single-vessel coronary artery disease in the mid left circumflex and successful stenting of the mid left circumflex. Patient was discharged home on April 08. During his stay he did have episodes of nausea shortness of breath and also continued throat clearing but these were all resolved on Thursday the time of discharge. Echocardiogram revealed EF of 60-65% with mild concentric left ventricular hypertrophy, mild aortic valve sclerosis, aortic root dilated at 3.8 cm. Patient now presents with complaints of chest pain difficulty breathing. He also has pain radiating to the back of his neck and into his arm. He is unable to take a deep breath. He has increased pain with exertion. Patient took 3 nitroglycerin at home without improvement. Patient was seen in the emergency center and admitted to the cardiac stepdown unit. He was started on a heparin drip and during the night started on a nitroglycerin drip as well. Patient had episode this morning of severe pain and 3 nitroglycerin were given and Young catheter was placed as he was bedbound. He had a drop in his blood pressure after nitroglycerin down to 112/79. His pulse ox also dropped down to the 80s and was placed on 8 L nasal cannula. Patient has been seen by cardiology and plan for heart catheterization this morning. Repeat EKG did not show any significant changes. Troponins 0.124, 0.129, 0.141. Triglycerides 107, cholesterol 120, LDL 56, HDL 43. D-dimer 0.34. Patient went for heart catheterization with Dr. Christopher the fall patent stent in the left circumflex. No evidence of coronary artery disease in the involving the LAD or RCA. Recommendations for maximizing medical therapy. 04/13: Patient's symptoms are completely resolved this morning. Blood pressure 124/74 with a heart rate in the 60s, 96% on room air. The patient is continued on the same cardiac meds. The patient has been cleared for discharge by cardiology. We will ask GI to evaluate the patient for his vague symptoms of nausea and pain that may be coming from his abdomen radiating up to in his ches t. He denies any history of GERD and has not been on any medications for this in the past. He denies any abdominal pain at this time. 04/14: This morning, patient stated he is not feeling well. He is complaining of nausea shortness of breath and severe symptoms like he has had episodes before. He continues to have throat clearing. He states he has not had a bowel movement in 3 days. Patient has been seen by GI with plan for CAT scan of the neck and chest today which revealed probable calcified granuloma left upper lobe. No suspicious acute chest CT findings. Patient is scheduled for EGD tomorrow with Dr. Chow. Patient is waiting for [facility] bed. Objective - Vital Signs Vital signs: Vital Signs Temp 97.5 F L 04/14/19 10:30 Pulse 63 04/14/19 10:30 Resp 18 04/14/19 10:30 BP 120/83 04/14/19 10:30 Pulse Ox 94 L 04/14/19 10:30 Intake & Output 04/13/19 04/14/19 04/14/19 18:59 06:59 18:59 Intake Total 1080 840 240 Balance 1080 840 240 Weight 111.2 kg Intake: Oral 1080 840 240 Other: Voiding Method Toilet Toilet # Voids 1 1 - Exam Review Of Systems: Constitutional: No fever, no chills, no night sweats. No weight change. denies weakness, denies fatigue. No daytime sleepiness. EENT: No headache. No blurred vision or double vision, no loss of vision. No loss of Hearing, no ringing in the ears, no dizziness. No nasal drainage or congestion. No epistaxis. No sore throat. Lungs: No shortness of breath, cough, no sputum production. No wheezing. Cardiovascular: Denies chest pain, no lower extremity edema. No palpitations. No paroxysmal nocturnal dyspnea. No orthopnea. No lightheadedness or dizziness. No syncopal episodes. Abdominal: Reports abdominal pain. Reports nausea, no vomiting. No diarrhea. No constipation. No bloody or tarry stools. No loss of appetite. Genitourinary: No dysuria, increased frequency, urgency. No urinary retention. Musculoskeletal: No myalgias. No muscle weakness, no gait dysfunction, no frequent falls. No back pain. No neck pain. Integumentary: No wounds, no lesions. No rash or pruritus. No unusual bruising. No change in hair or nails. Neurologic: No aphasia. No facial droop. No change in mentation. No head injury. No headache. No paralysis. No paresthesia. Psychiatric: No depression. No anxiety. No mood swings. Endocrine: No abnormal blood sugars. No weight change. No excessive sweating or thirst. No cold intolerance. General appearance: mild acute distress, obese. - EENT Eyes: PERRLA, normal appearance ENT: hard of hearing - Neck Neck: no lymphadenopathy - Respiratory Respiratory: bilateral: CTA - Cardiovascular Rhythm: regular Heart sounds: normal: S1, S2 Abnormal Heart Sounds: no systolic murmur, no diastolic murmur - Gastrointestinal General gastrointestinal: normal bowel sounds, soft, no tenderness - Integumentary Integumentary: normal turgor, right wrist without hematoma. - Neurologic Neurologic: CNII-XII intact - Musculoskeletal Musculoskeletal: no right sided weakness, no left sided weakness - Psychiatric Psychiatric: A&O x's 3, appropriate affect, intact judgment & insight - Labs CBC & Chem 7: 04/11/19 14:13 04/11/19 14:13 Assessment and Plan Plan: 1. Chest pain with elevated troponins and acute non-ST elevated myocardial infarction has been ruled out. Continue aspirin, atorvastatin, Plavix, losartan. GI consult requested. Patient will be transferred to [facility] floor. Her tonic started. GI consult. CAT scan of the neck and chest as above. EGD for tomorrow. 2. Hypertension. Continue losartan. 3. Recent sinus infection recently treated with 2 courses of antibiotics. R ecommend Flonase and Zyrtec for chronic sinus drainage. 4. Remote history of tobacco use and dependence, patient quit 3 years ago. 5. Alcohol abuse. Patient usually drinks 2-4 beers per day but decreased over the past month. 6. History of diverticulitis, stable. Polyps on last colonoscopy 3 years ago. 7. Suspected sleep apnea. Patient will need outpatient sleep study done. CODE STATUS: Full code Discharge plan: Return home Impression and plan of care have been directed as dictated by the signing physician. Rebeca Lancaster nurse practitioner acting as scribe for signing physician.
[2019-04-14] MEDS: ATORVASTATIN 80 MG TAB PO SCH (21:19)
[2019-04-15] MEDS: ONDANSETRON 4 MG/2 ML VIAL IVP SCH ×2 (05:47→13:02)
[2019-04-15] MEDS: PANTOPRAZOLE 40 MG/10 ML VIAL IVP SCH (07:39)
[2019-04-15] MEDS: SODIUM CHLORIDE 0.65% NASAL SPRAY 44 ML BTL NASAL SCH ×2 (07:39→15:56)
[2019-04-15] MEDS: FLUTICASONE 50MCG/SPRAY NASAL 16GM EA NOSTRIL SCH (09:14)
[2019-04-15] MEDS: ASPIRIN 81 MG PO SCH (12:58)
[2019-04-15] MEDS: CLOPIDOGREL 75 MG TAB PO SCH (12:58)
[2019-04-15] MEDS: LOSARTAN 25 MG TAB PO SCH (12:58)
[2019-04-15] MEDS: LORATADINE 10 MG TAB PO SCH (12:58)
[2019-04-15 13:40] LABS: INR 0.9 (<1.2)
--- NOTE | 2019-04-15 14:30 | P.DS ---
Providers Date of admission: 04/11/19 17:09 Expected date of discharge: 04/15/19 Attending physician: Víctor Pablo MD Consults: 04/11/19 17:09 Consult Physician Urgent Consulting Provider: [facility] Consult Reason/Comments: Unstable angina Do you want consulting provider notified?: Yes 04/13/19 10:02 Consult Physician Routine Consulting Provider: Franc Ybarra Consult Reason/Comments: nausea Do you want consulting provider notified?: Yes Primary care physician: Lyle Garces [facility] Course: This is a 69-year-old male patient of Dr. Lyle Garces with past medical history of coronary artery disease, diverticulitis, chronic sinus drainage, remote history of tobacco use and dependence, alcohol abuse. Patient recently presented to the hospital with complaints of at least 1 month he has had nausea, fatigue and "heavy breathing" He also complains of weakness in his arms and they feel heavy. Patient underwent Persantine stress test that was positive and patient went for heart catheterization with Dr. Christopher finding severe single-vessel coronary artery disease in the mid left circumflex and successful stenting of the mid left circumflex. Patient was discharged home on April 08. During his stay he did have episodes of nausea shortness of breath and also continued throat clearing but these were all resolved on Thursday the time of discharge. Echocardiogram revealed EF of 60-65% with mild concentric left ventricular hypertrophy, mild aortic valve sclerosis, aortic root dilated at 3.8 cm. Patient now presents with complaints of chest pain difficulty breathing. He also has pain radiating to the back of his neck and into his arm. He is unable to take a deep breath. He has increased pain with exertion. Patient took 3 nitroglycerin at home without improvement. Patient was seen in the emergency center and admitted to the cardiac stepdown unit. He was started on a heparin drip and during the night started on a nitroglycerin drip as well. Patient had episode this morning of severe pain and 3 nitroglycerin were given and Young catheter was placed as he was bedbound. He had a drop in his blood pressure after nitroglycerin down to 112/79. His pulse ox also dropped down to the 80s and was placed on 8 L nasal cannula. Patient has been seen by cardiology and plan for heart catheterization this morning. Repeat EKG did not show any significant changes. Troponins 0.124, 0.129, 0.141. Triglycerides 107, cholesterol 120, LDL 56, HDL 43. D-dimer 0.34. Patient went for heart catheterization with Dr. Christopher the fall patent stent in the left circumflex. No evidence of coronary artery disease in the involving the LAD or RCA. Recommendations for maximizing medical therapy. 04/13: Patient's symptoms are completely resolved this morning. Blood pressure 124/74 with a heart rate in the 60s, 96% on room air. The patient is continued on the same cardiac meds. The patient has been cleared for discharge by cardiology. We will ask GI to evaluate the patient for his vague symptoms of nausea and pain that may be coming from his abdomen radiating up to in his chest. He denies any history of GERD and has not been on any medications for this in the past. He denies any abdominal pain at this time. 04/14: This morning, patient stated he is not feeling well. He is complaining of nausea shortness of breath and severe symptoms like he has had episodes before. He continues to have throat clearing. He states he has not had a bowel movement in 3 days. Patient has been seen by GI with plan for CAT scan of the neck and chest today which revealed probable calcified granuloma left upper lobe. No suspicious acute chest CT findings. Patient is scheduled for EGD tomorrow with Dr. Chow. Patient is waiting for [facility] bed. 04/15: Today, patient's only complaint is constipation. He is scheduled for EGD this afternoon with Dr. Chow. If after this, he is cleared for discharge from Dr. Chow, patient will be discharged home. We will give him a prescription for lactulose to use as needed. Patient has been instructed to follow up early next week with Dr. Garces. Patient will also have a follow-up appointment with GI. The patient will be discharged home in stable condition. Discharge diagnoses: 1. Chest pain with elevated troponins and acute non-ST elevated myocardial infarction has been ruled out. 2. Hypertension. 3. Recent sinus infection and chronic allergies. 4. Remote history of tobacco use and dependence, patient quit 3 years ago. 5. Alcohol abuse. Patient usually drinks 2-4 beers per day but decreased over the past month. 6. History of diverticulitis, stable. Polyps on last colonoscopy 3 years ago. 7. Suspected sleep apnea. Patient will need outpatient sleep study done. Discharge plan: Return home Impression and plan of care have been directed as dictated by the signing physician. Rebeca Lancaster nurse practitioner acting as scribe for signing physician. Patient Condition at Discharge: Good Plan - Discharge Summary Discharge Rx Participant: No New Discharge Prescriptions: New Pantoprazole [Protonix] 40 mg PO BID #60 tablet. Continue Loratadine [Claritin] 10 mg PO DAILY tab Losartan [Cozaar] 25 mg PO DAILY #30 tab Sodium Chloride 0.65% Nasal [Deep Sea (Saline)] 2 spray NASAL TID spray Aspirin EC [Ecotrin Low Dose] 81 mg PO DAILY #30 tablet. Fluticasone Nasal [place] [Flonase Nasal [place]] 2 spray EA NOSTRIL DAILY spr Atorvastatin [Lipitor] 80 mg PO HS #30 tab Nitroglycerin Sl Tabs [Nitrostat] 0.4 mg SUBLINGUAL Q5M PRN #25 tab PRN Reason: Chest Pain Clopidogrel [Plavix] 75 mg PO DAILY #30 tab Discharge Medication List Aspirin EC [Ecotrin Low Dose] 81 mg PO DAILY #30 tablet. 04/09/19 [Rx] Atorvastatin [Lipitor] 80 mg PO HS #30 tab 04/09/19 [Rx] Clopidogrel [Plavix] 75 mg PO DAILY #30 tab 04/09/19 [Rx] Fluticasone Nasal [place] [Flonase Nasal [place]] 2 spray EA NOSTRIL DAILY spr 04/09/19 [Rx] Loratadine [Claritin] 10 mg PO DAILY tab 04/09/19 [Rx] Losartan [Cozaar] 25 mg PO DAILY #30 tab 04/09/19 [Rx] Nitroglycerin Sl Tabs [Nitrostat] 0.4 mg SUBLINGUAL Q5M PRN #25 tab 04/09/19 [Rx] Sodium Chloride 0.65% Nasal [Deep Sea (Saline)] 2 spray NASAL TID spray 04/09/19 [Rx] Pantoprazole [Protonix] 40 mg PO BID #60 tablet. 04/15/19 [Rx] Follow up Appointment(s)/Referral(s): Peter Christopher MD [STAFF PHYSICIAN] - 04/25/19 3:45 pm (Thursday) Lyle Garces MD [Primary Care Provider] - 04/18/19 1:30 pm (Thursday) Patient Instructions/Handouts: *Surgery [facility] - After Heart Catheterization - Automotive Salesperson Instructions, Left Heart Catheterization (DC) Discharge Disposition: HOME SELF-CARE
[2019-04-15] MEDS ORDERED: IV FLUID CONTINUATION 1,000 ML IV ONE ×2 (14:37)
[2019-04-15] MEDS ORDERED: PROPOFOL 10 MG/ML 20 ML VIAL IV ONE (14:40)
[2019-04-15] MEDS ORDERED: LIDOCAINE 1% INJ 10MG/ML (20 ML MDV) ONE (14:40)
--- NOTE | 2019-04-15 15:07 | P.PCN ---
Date of Procedure: 04/15/19 Procedure(s) Performed: Procedure: Esophagogastroduodenoscopy. Preoperative diagnoses: Complaints of atypical chest pains. Postoperative diagnoses: 1 Hiatal hernia with no obvious esophagitis or complicated reflux disease. 2. Mild gastritis with no ulcers or gastric outlet obstruction. 3. Biopsies were not obtained since the patient is on aspirin and Plavix. Preparation and sedation: Was provided by anesthesia. Brief clinical history: The patient is a 69-year-old male with a history of chronic alcohol consumption, coronary artery disease status post recent PCI stent April 09 with re-surveillance cardiac catheterization 2 days ago no evidence of stent occlusion secondary to symptoms of nausea elevated troponin. Patient has been experiencing a globus type sensation since December with constant clearing of his throat chest congestion and mid chest heaviness. He was admitted to the hospital with the diagnosis of angina and underwent the cardiac cath as mentioned above which was normal. He was previously treated for some of his symptoms for possible chronic sinusitis with Z-Charles a few weeks ago without improvement. Symptoms have worsened over the last few weeks with 1 episode of nonbloddy emesis. Denies hematemesis, hematochezia, melena weight loss fever or chills. Denies dysphagia, odynophagia or other alarm symptoms. No history of peptic ulcer disease or EGD evaluation. Colonoscopy a few years ago to his memory reported colonic diverticular disease. Last alcoholic drink 6 w eeks ago. No changes in appetite. Abdominal ultrasound reported hepatic steatosis. Hemoglobin 17.5. White count 13.2. Platelet 264. INR 0.9. LFTs within normal limits. The details are not summarized in history and physical and dictated consultations and progress notes. Procedure: With the patient on his left lateral decubitus position and after informed consent and adequate sedation, I passed the Olympus-GIF H190L video upper endoscope through the cricopharyngeus down the esophagus. GE junction was around 40 cm from the incisors and there was a 2 cm sliding hernia. There was no evidence of esophagitis or any strictures or Sanchez's esophagus. The endoscope was then passed into the stomach which was insufflated with and inspected in detail including the retroflex view in the cardia. There was diffuse mild mottling and erythema consistent with mild gastritis but there were no ulcers, erosions or bleeding. No gastric outlet obstruction. Pyloric channel, duodenal bulb, post bulbar area and descending duodenum appeared within normal limits. No biopsies were obtained since the patient is taking Plavix and aspirin at this time. The patient tolerated the procedure well. Plan: The patient was reassured. Will allow regular diet. Further plans based on his course. Would be happy to see as outpatient of his symptoms persist.
[2019-04-15 15:36] VITALS: TEMP 97.7
[2019-04-15 16:53] VITALS: RESP 18
[2019-04-15 17:00] VITALS: BP 129/86; PULSE 61
[2019-04-15] MEDS ORDERED: PANTOPRAZOLE 40 MG TABLET PO SCH (21:00)
== END 2019-04-15 17:06 | disposition home or self-care (01) | DRG 287 ==
LOC: EC 13:57 → 3SCARD 17:09 → 4MS4W 04-14 10:07 → UNDODISIN 04-15 11:30 → 4SSUR 04-15 14:34
PROVIDERS: ADMIT Internal Medicine; ATTEND Internal Medicine
PROC: B2161ZZ Fluoroscopy of Right and Left Heart using Low Osmolar Contrast (ICD-10-PCS; principal; 2019-04-12 09:50)
PROC: 4A023N7 Measurement of Cardiac Sampling and Pressure, Left Heart, Percutaneous Approach (ICD-10-PCS; principal; 2019-04-12 09:50)
PROC: B2111ZZ Fluoroscopy of Multiple Coronary Arteries using Low Osmolar Contrast (ICD-10-PCS; principal; 2019-04-12 09:50)
PROC: 0DJ08ZZ Inspection of Upper Intestinal Tract, Via Natural or Artificial Opening Endoscopic (ICD-10-PCS; 2019-04-15)
DX: R07.9 Chest pain, unspecified (principal); I10 Essential (primary) hypertension; E78.5 Hyperlipidemia, unspecified; K21.9 Gastro-esophageal reflux disease without esophagitis; K29.70 Gastritis, unspecified, without bleeding; K44.9 Diaphragmatic hernia without obstruction or gangrene; I25.10 Atherosclerotic heart disease of native coronary artery without angina pectoris; K59.00 Constipation, unspecified; F10.10 Alcohol abuse, uncomplicated; G47.30 Sleep apnea, unspecified; Z79.02 Long term (current) use of antithrombotics/antiplatelets; Z74.01 Bed confinement status; Z79.82 Long term (current) use of aspirin; Z79.899 Other long term (current) drug therapy; Z87.19 Personal history of other diseases of the digestive system; Z95.5 Presence of coronary angioplasty implant and graft; Z98.890 Other specified postprocedural states; Z87.891 Personal history of nicotine dependence; Z82.49 Family history of ischemic heart disease and other diseases of the circulatory system; Z82.5 Family history of asthma and other chronic lower respiratory diseases
CPT/HCPCS: 36415; 43235; 70491; 71046; 71260; 80053; 80061; 83735; 84484; 85025; 85379; 85610; 85730; 93005; 93306; 93308; 93458; 94760; 96365; 96366; 96375; 96376; 99291

== ENCOUNTER → 2020-05-01 | Outpatient (CLI) | payer MEDICARE | END | disposition home or self-care (01) | LOC: CPPFTMAIN 06:59 | PROVIDERS: ATTEND Internal Medicine Critical Care Medicine | DX: R06.09 Other forms of dyspnea (principal); R94.2 Abnormal results of pulmonary function studies | CPT/HCPCS: 94060; 94726; 94729 ==

== ENCOUNTER → 2020-05-23 | Outpatient (CLI) | payer MEDICARE ==
[2020-05-23 11:49] LABS: HCT 50.8 % (39.0-53.0); HGB 16.7 gm/dL (13.0-17.5); MCH 31.1 pg (25.0-35.0); MCHC 32.8 g/dL (31.0-37.0); MCV 94.8 fL (80.0-100.0); Mean Platelet Volume 8.3; Platelet Count 209 k/uL (150-450); RBC 5.35 m/uL (4.30-5.90); RDW 13.9 % (11.5-15.5); WBC 9.5 k/uL (3.8-10.6)
[2020-05-23 11:59] LABS: African American GFR (CKD) >90 (>60 ml/min/1.73 sqM); Anion Gap 11 mmol/L; Blood Urea Nitrogen 11 mg/dL (9-20); Carbon Dioxide 21 mmol/L (22-30); Chloride 105 mmol/L (98-107); Non-African American GFR(CKD) >90 (>60 ml/min/1.73 sqM); Sodium 137 mmol/L (137-145)
[2020-05-23 12:00] LABS: Potassium 4.9 mmol/L (3.5-5.1)
== END | disposition home or self-care (01) ==
LOC: LABPAT 09:36
PROVIDERS: ATTEND Internal Medicine Interventional Cardiology
DX: Z01.818 Encounter for other preprocedural examination (principal); I25.10 Atherosclerotic heart disease of native coronary artery without angina pectoris
CPT/HCPCS: 36415; 80051; 82565; 84520; 85027

== ENCOUNTER 2020-05-24 09:08 | Day surgery (SDC) | payer MEDICARE ==
[2020-05-23 09:19] VITALS: BMI 35.2
[~2020-05-24 09:08] MED LIST: ALPRAZolam 0.25 MG TAB PO PRN; ALPRAZolam 0.5 MG TAB PO PRN; ASPIRIN 325 MG TAB PO STA; NITROGLYCERIN SL TABS 0.4 MG TAB SUBLINGUAL PRN; SODIUM CHLORIDE 0.9% 1,000 ML in EMPTY BAG 1 BAG IV ONE
[2020-05-24 10:14] LABS: Basophils # (A) 0.1 k/uL (0-0.2); Basophils % (A) 1 %; Eosinophils # (A) 0.3 k/uL (0-0.7); Eosinophils % (A) 3 %; HCT 49.4 % (39.0-53.0); HGB 16.2 gm/dL (13.0-17.5); Lymphocytes # (A) 1.3 k/uL (1.0-4.8); Lymphocytes % (A) 16 %; MCH 30.5 pg (25.0-35.0); MCHC 32.9 g/dL (31.0-37.0); MCV 92.8 fL (80.0-100.0); Mean Platelet Volume 7.8; Monocytes # (A) 0.6 k/uL (0-1.0); Monocytes % (A) 7 %; Neutrophils # (A) 5.8 k/uL (1.3-7.7); Neutrophils % (A) 70 %; Platelet Count 215 k/uL (150-450); RBC 5.32 m/uL (4.30-5.90); RDW 13.8 % (11.5-15.5); WBC 8.3 k/uL (3.8-10.6)
[2020-05-24 10:22] LABS: African American GFR (CKD) >90 (>60 ml/min/1.73 sqM); Anion Gap 8 mmol/L; Blood Urea Nitrogen 11 mg/dL (9-20); Calcium 9.6 mg/dL (8.4-10.2); Carbon Dioxide 21 mmol/L (22-30); Chloride 108 mmol/L (98-107); Glucose 115 mg/dL (74-99); Non-African American GFR(CKD) >90 (>60 ml/min/1.73 sqM); Potassium 4.3 mmol/L (3.5-5.1); Sodium 137 mmol/L (137-145)
[2020-05-24] MEDS ORDERED: IV FLUID CONTINUATION 900 ML IV ONE (10:32)
[2020-05-24] MEDS ORDERED: MIDAZOLAM 2 MG/2 ML VIAL IV ONE (10:37)
[2020-05-24] MEDS ORDERED: LIDOCAINE 1% INJ 10MG/ML (20 ML MDV) SQ ONE (10:39)
[2020-05-24] MEDS: VERAPAMIL SYRINGE (5 MG/10 ML) INTRAARTER ONE ×2 (10:40→10:53)
[2020-05-24] MEDS ORDERED: HEPARIN SODIUM 1,000 UN/ML (10ML VL) IV ONE (10:43)
[2020-05-24] MEDS ORDERED: IOPAMIDOL-370 100ML BTL INJ ONE (10:54)
[2020-05-24] MEDS ORDERED: RX INFO: IV CONTRAST WAS GIVEN 1 EACH MISC MISCELLANE PRN (11:25)
[2020-05-24] MEDS ORDERED: SODIUM CHLORIDE 0.9% 1,000 ML IV SCH (11:30)
[2020-05-24 12:58] VITALS: RESP 16
[2020-05-24 13:00] VITALS: PULSE 60
--- NOTE | 2020-05-24 13:09 | CC ---
CARDIAC CATHETERIZATION REPORT 05/24/2020 PERFORMING PHYSICIAN: Peter Christopher MD. PROCEDURE PERFORMED: Selective right and left coronary angiogram. INDICATION: This is a very pleasant 70-year-old gentleman with coronary artery disease and prior stenting of the left circumflex, who continues to have intermittent episodes of chest discomfort concerning for angina. Also he was experiencing shortness of breath with exertion concerning for angina. Because of that, a heart catheterization was advised. APPROACH: Right radial artery. COMPLICATION: None. LEVEL OF SEDATION: Moderate with sedation length of 20 minutes. PROCEDURE DESCRIPTION: After obtaining an informed consent, the patient was brought to the cardiac ship laborer. The right radial artery was cannulated using micropuncture technique, the micropuncture wire passed easily then I placed a 6-Faroese sheath in the right radial artery. At that point, the patient was given 2 mg of verapamil IA and 10,000 units of heparin IV. Selective right and left coronary angiogram performed using JR4 and JL3.5 catheters. Left heart catheterization was not performed. The procedure was completed without any complication. Selective coronary angiogram. 1. The RCA is a large caliber vessel and is a dominant vessel. The RCA has mild disease distally only then it bifurcates into PDA and PLV branches, both appeared to be angiographically normal. 2. The left main is angiographically normal and it bifurcates into LCX and LAD. 3. The LCX is a large caliber vessel and it is a nondominant vessel. The proximal circumflex appeared to be angiographically normal. The mid circumflex has a lesion that appeared to be in the range of 40% to 50%. The circumflex distally is stented and the stent is patent. 4. The LAD appeared to be angiographically normal in the proximal portion where it gives rise into a large diagonal branch which seems to be normal. The mid and distal LAD appeared to have mild disease only. 5. CONCLUSION: 1. Patent stent in the distal left circumflex. 2. Intermediate disease involving the mid LCX. POSTPROCEDURE MANAGEMENT: Medical treatment. Follow up with the patient. MMODL / IJN: [id number] /
[2020-05-24 15:48] VITALS: BP 129/79
== END 2020-05-24 16:44 | disposition home or self-care (01) ==
LOC: CATHCVL 09:08
PROVIDERS: ATTEND Internal Medicine Interventional Cardiology
DX: I25.10 Atherosclerotic heart disease of native coronary artery without angina pectoris (principal); I10 Essential (primary) hypertension; E78.5 Hyperlipidemia, unspecified; Z72.0 Tobacco use; E66.9 Obesity, unspecified; G89.29 Other chronic pain; R07.89 Other chest pain; Z79.02 Long term (current) use of antithrombotics/antiplatelets; Z95.5 Presence of coronary angioplasty implant and graft; Z79.82 Long term (current) use of aspirin; Z79.899 Other long term (current) drug therapy; Z68.36 Body mass index [BMI] 36.0-36.9, adult
CPT/HCPCS: 93454; 80048; 85025; C1769; C1894; J2250; J2001; J1644; Q9967

== ENCOUNTER 2021-01-02 11:12 | Day surgery (SDC) | payer MEDICARE ==
[2020-12-28 16:04] VITALS: BMI 36.2
[~2021-01-02 11:12] MED LIST changes: +ALBUTEROL NEB (CONC) 2.5 MG/0.5 ML INHALATION ONE; -ALPRAZolam 0.25 MG TAB PO PRN; -ALPRAZolam 0.5 MG TAB PO PRN; -ASPIRIN 325 MG TAB PO STA; +ATROPINE SULFATE 0.4 MG/ML 1 ML VIAL IM ONE; +LACTATED RINGERS 1,000 ML IV SCH; +LIDOCAINE 1% (10MG/ML) FOR IV START INTRADERMA PRN; +LIDOCAINE 2% (PF) 20 MG/ML 5 ML VIAL INHALATION ONE; +LIDOCAINE VISCOUS 300 MG/15 ML CUP MUCOUS MEM ONE; -NITROGLYCERIN SL TABS 0.4 MG TAB SUBLINGUAL PRN; +SODIUM CHLORIDE 0.9% 1,000 ML IV SCH; -SODIUM CHLORIDE 0.9% 1,000 ML in EMPTY BAG 1 BAG IV ONE
[2021-01-02 11:49] VITALS: TEMP 97.4
[2021-01-02] MEDS: LACTATED RINGERS 1,000 ML IV SCH ×2 (11:51→12:00)
[2021-01-02] MEDS ORDERED: GLYCOPYRROLATE 0.2 MG/ML 2 ML VIAL ONE (12:01)
[2021-01-02] MEDS ORDERED: PROPOFOL 10 MG/ML 20 ML VIAL IV ONE (12:01)
[2021-01-02] MEDS ORDERED: MIDAZOLAM 2 MG/2 ML VIAL ONE (12:01)
[2021-01-02] MEDS ORDERED: KETAMINE 10 MG/ML 20 ML VIAL ONE (12:01)
[2021-01-02] MEDS ORDERED: LIDOCAINE 1% INJ 10MG/ML (20 ML MDV) ONE (12:01)
[2021-01-02] MEDS ORDERED: LIDOCAINE 2% INJ 20 MG/ML INTRATRACH ONE (12:21)
[2021-01-02 13:40] VITALS: BP 121/74; PULSE 78; RESP 18
[2021-01-02 16:19] LABS: Appearance,BF Cloudy; Color,BF Pink; Nucleated Cells, Body Fluid 333 /uL; RBC, Body Fluid 4425 /uL
[2021-01-02 16:37] LABS: Mononuclear WBC,Body Fluid 21 %; Polynuclear WBC,Body Fluid 78 %; Total Cells Counted,Body Fluid 100
--- NOTE | 2021-01-02 19:21 | PCN ---
PROCEDURE NOTE PROCEDURE: Bronchoscopy, airway examination, therapeutic lavage, BAL right middle lobe/right lower lobe. PREOPERATIVE DIAGNOSIS: Acute bronchitis. POSTOPERATIVE DIAGNOSIS: Acute bronchitis. OPERATORS: 1. Dr. Rich Vences. 2. Dr. Radha Preciado. DESCRIPTION OF PROCEDURE: Anesthesia provided general anesthesia. The patient's procedure was done in room #2. There was informed consent and universal timeout. After the patient was adequately sedated and being fully monitored, the bronchoscope was inserted through the right nostril. It passed through the right nasopharynx into the oropharynx. The hypopharynx was identified. The hypopharyngeal structures appeared normal, including anterior commissure, true cords, false cords, arytenoids, piriform sinuses, right and left valleculae and epiglottis. Of note, there was obvious oropharyngeal candidiasis noted to the posterior oropharynx and on the back of the tongue. After topicalization, the bronchoscope was pushed through the glottic opening into the trachea. The trachea appeared relatively normal. Tracheal deepti was sharp. The right and left mainstem were topicalized. The right upper lobe and its 3 segments, right middle lobe and its 2 segments, right lower lobe and its 5 segments, the left upper lobe proper and its 2 segments, the lingula and its 2 segments, and the left lower lobe and its 4 segments all had similar findings of diffuse bronchitis. The airways were hyperemic and erythematous. There was some mucosal friability. There were some thick secretions which were suctioned without difficulty. There was no dominant mass or tumor. There was no active hemorrhage. The bronchoscope was then wedged into the patient's middle lobe area. We did a BAL. Because of the patient's coughing, sometimes the bronchoscope was pushed out of the right middle lobe and into the area above the right middle lobe and right lower lobe. The washings, therefore, probably are more pooled from mostly the right middle lobe but also from the right lower lobe. The patient tolerated the procedure well, and 30 mL was recovered. The fluid will be sent for analysis. The patient will be recovered. The patient's brought the patient here and I will go ahead and talk to her afterwards. MMODL / IJN: [id number] /
== END 2021-01-02 13:55 | disposition home or self-care (01) ==
LOC: ORWHC2ENDO 11:12
PROVIDERS: ATTEND Internal Medicine Critical Care Medicine
DX: J44.0 Chronic obstructive pulmonary disease with (acute) lower respiratory infection (principal); R07.89 Other chest pain; I25.10 Atherosclerotic heart disease of native coronary artery without angina pectoris; R60.0 Localized edema; E78.5 Hyperlipidemia, unspecified; I10 Essential (primary) hypertension; K57.90 Diverticulosis of intestine, part unspecified, without perforation or abscess without bleeding; K21.9 Gastro-esophageal reflux disease without esophagitis; Z82.49 Family history of ischemic heart disease and other diseases of the circulatory system; Z82.5 Family history of asthma and other chronic lower respiratory diseases; Z87.891 Personal history of nicotine dependence; Z98.890 Other specified postprocedural states; Z90.89 Acquired absence of other organs; Z95.5 Presence of coronary angioplasty implant and graft; Z79.899 Other long term (current) drug therapy
CPT/HCPCS: 87798 ×3; 87496; 87498; 87529; 88108; 88305; 89050; 87252; 87502; 87634; 87070; 87205; 87116; 87102; 87206; 31624; J2001 ×2; J2250; J0461; J2704

== ENCOUNTER 2023-03-30 10:40 | Observation (INO) | payer MEDICARE ==
[2023-03-30 11:15] LABS: Basophils % (A) 1 %; Eosinophils # (A) 0.3 k/uL (0-0.7); Eosinophils % (A) 3 %; HCT 52.3 % (39.0-53.0); HGB 17.5 gm/dL (13.0-17.5); Lymphocytes # (A) 1.7 k/uL (1.0-4.8); Lymphocytes % (A) 23 %; MCHC 33.5 g/dL (31.0-37.0); MCV 95.3 fL (80.0-100.0); Mean Platelet Volume 8.2; Monocytes # (A) 0.6 k/uL (0-1.0); Monocytes % (A) 8 %; Neutrophils # (A) 4.6 k/uL (1.3-7.7); Neutrophils % (A) 62 %; Platelet Count 210 k/uL (150-450); RBC 5.49 m/uL (4.30-5.90); RDW 13.4 % (11.5-15.5); WBC 7.3 k/uL (3.8-10.6)
[2023-03-30 11:26] LABS: INR 0.9 (<1.2); Partial Thromboplastin Time 22.6 sec (22.0-30.0)
[2023-03-30] MEDS ORDERED: NITROGLYCERIN SL TABS 0.4 MG TAB SUBLINGUAL STA (11:28)
[2023-03-30] MEDS ORDERED: ASPIRIN 81 MG PO STA (11:28)
[2023-03-30 11:33] LABS: ALT 74 U/L (4-49); AST 42 U/L (17-59); African American GFR (CKD) >90 (>60 ml/min/1.73 sqM); Albumin 4.6 g/dL (3.5-5.0); Alkaline Phosphatase 63 U/L (38-126); Anion Gap 10 mmol/L; Blood Urea Nitrogen 15 mg/dL (9-20); Calcium 9.6 mg/dL (8.4-10.2); Carbon Dioxide 22 mmol/L (22-30); Chloride 105 mmol/L (98-107); Glucose 129 mg/dL (74-99); Magnesium 2.1 mg/dL (1.6-2.3); Non-African American GFR(CKD) >90 (>60 ml/min/1.73 sqM); Potassium 4.4 mmol/L (3.5-5.1); Sodium 137 mmol/L (137-145); Total Protein 7.7 g/dL (6.3-8.2)
--- NOTE | 2023-03-30 11:33 | ED ---
General Adult HPI - General Chief complaint: Chest Pain Stated complaint: chest pain Time Seen by Provider: 03/30/23 10:48 Source: patient Mode of arrival: ambulatory Limitations: no limitations - History of Present Illness Initial comments: Dictation was produced using [employer] dictation software. please excuse any grammatical, word or spelling errors. Chief Complaint: 73-year-old male past surgical history coronary artery disease presents to emergency part for 6 days of chest pressure History of Present Illness: This 73-year-old male who has past medical history of coronary artery stent, coronary artery disease, COPD presents to the ER for 5-6 days of chest pressure. States that 10 feels like a base and sitting on his chest. Pain is not associated diaphoresis or nausea. Nonradiating. The ROS documented in this emergency department record has been reviewed and confirmed by me. Those systems with pertinent positive or negative responses have been documented in the HPI. All other systems are other negative and/or no ncontributory. - Related Data Home Medications Medication Instructions Recorded Confirmed No Known Home Medications 12/28/20 01/02/21 Allergies Allergy/AdvReac Type Severity Reaction Status Date / Time No Known Allergies Allergy Verified 01/02/21 11:45 Review of Systems ROS Statement: Those systems with pertinent positive or pertinent negative responses have been documented in the HPI. ROS Other: All systems not noted in ROS Statement are negative. Past Medical History Past Medical History: Coronary Artery Disease (CAD), Chest Pain / Angina, COPD, Hypertension Additional Past Medical History / Comment(s): diverticulitis,emphysema. shortness of breath History of Any Multi-Drug Resistant Organisms: None Reported Past Surgical History: Heart Catheterization With Stent, Hernia Repair, Orthopedic Surgery Additional Past Surgical History / Comment(s): lt shoulder and lt knee, colonoscopy 3 years ago with polypectomy, stent to CIRC on the 04/08/19 Past Anesthesia/Blood Transfusion Reactions: No Reported Reaction, Motion Sickness Date of Last Stent Placement:: 04/08/19 Past Psychological History: No Psychological Hx Reported Smoking Status: Former smoker - Past Family History Father Family Medical History: COPD, Myocardial Infarction ([place]) Additional Family Medical History / Comment(s): Father at age 72 from emphysema with history of a myocardial infarction in his 60s. Mother Family Medical History: No Reported History Additional Family Medical History / Comment(s): Mother in her 80s from old age. Sister(s) Additional Family Medical History / Comment(s): Patient has 6 sisters that are all . 2 were twins in motor vehicle accident. Others have from old age. No history of cancers. Patient does not have any brothers. Patient has 3 children, 2 boys and one girl with no major medical problems. General Exam - General Exam Comments Initial Comments: PHYSICAL EXAM: General Impression: Alert and oriented x3, not in acute distress HEENT: Normocephalic atraumatic, extra-ocular movements intact, pupils equal and reactive to light bilaterally, mucous membranes moist. Cardiovascular: Heart regular rate and rhythm Chest: Able to complete full sentences, no retractions, no tachypnea Abdomen: abdomen soft, non-tender, non-distended, no organomegaly Musculoskeletal: Pulses present and equal in all extremities, no peripheral edema Motor: no focal deficits noted Neurological: CN II-XII grossly intact, no focal motor or sensory deficits noted Skin: Intact with no visualized rashes Psych: Normal affect and mood Limitations: no limitations Course Vital Signs 03/30/23 03/30/23 03/30/23 10:42 11:16 12:00 Temperature 98 F Pulse Rate 64 65 73 Respiratory 20 24 24 Rate Blood Pressure 156/98 137/98 127/83 O2 Sat by Pulse 92 L 100 94 L Oximetry - Reevaluation(s) Reevaluation #1: 03/30/23 11:32 Patient seen and evaluated room #18. Is well-appearing in no significant distress. He does however report 8 out of 10 chest pressure at the bedside. Triage vital signs are unremarkable. Reevaluation #2: 03/30/23 12:32 Patient is having persistent chest pressure. Repeat EKG was performed at the level V. Did review the EKG showed no dynamic changes. Patient states that it feels like pressure is getting worse. Dr. Christopher was contacted. He reviewed the patient's second EKG and be planning to take the patient to laboratory operations coordinator. EKG Findings - EKG Comments: EKG Findings:: My EKG interpretation: Ventricular rate 60, sinus rhythm, TN interval 194, QRS 105, QTc 387. No TN prolongation, no QTC prolongation, no ST or T-wave changes noted. EKG compared to 04/11/2019 showing no changes. Overall, this EKG is unremarkable Medical Decision Making - Medical Decision Making Was pt. sent in by a medical professional or institution (, JOEL, RETIREMENT ASSISTANT, urgent care, hospital, or fpc...) When possible be specific @ -No Did you speak to anyone other than the patient for history (EMS, parent, family, police, friend...)? What history was obtained from this source @ - at the bedside states patient's having chest pain Did you review nursing and triage notes (agree or disagree)? Why? @ -I reviewed and agree with nursing and triage notes Were old charts reviewed (outside hosp., previous admission, EMS record, old EKG, old radiological studies, urgent care reports/EKG's, fpc records)? Report findings @ -Or urology notes reviewed including cardiac catheterization from 2019 and cardiology consultation note from 2018 showing the patient's history of coronary artery disease Differential Diagnosis (chest pain, altered mental status, abdominal pain women, abdominal pain men, vaginal bleeding, musculoskeletal, weakness, fever, dyspnea, syncope, headache, dizziness, GI bleed, back pain, seizure, CVA, palpatations, mental health)? @ -Differential Chest Pain: Stable Angina, Unstable Angina, STEMI, NSTEMI Aortic Dissection, Pneumothorax, Musculoskeletal, Esophageal Spasm GERD, Cholecystitis, Pancreatitis, Zoster, this is not meant to be an all-inclusive list. EKG interpreted by me (3pts min.). @ -See above X-rays interpreted by me (1pt min.). @ -Non acute chest x-ray CT interpreted by me (1pt min.). @ -None done U/S interpreted by me (1pt. min.). @ -None done What testing was considered but not performed or refused? (CT, X-rays, U/S, labs)? Why? @ -None What meds were considered but not given or refused? Why? @ -None Did you discuss the management of the patient with other professionals (professionals i.e. JOEL Bailey, RETIREMENT ASSISTANT, lab, RT, psych nurse, nephrology social worker, manager harbor, teacher, audit officer, family independence case manager)? Give summary @ -Discussed with bank guard, Dr. Ch who will evaluate the patient and plans for cardiac laboratory operations coordinator Was smoking cessation discussed for >3mins.? @ -No Was critical care preformed (if so, how long)? @ -33 minutes, yes Were there social determinants of health that impacted care today? How? (Homelessness, low income, unemployed, alcoholism, drug addiction, transportation, low edu. Level, literacy, decrease access to med. care, usp, rehab)? @ -No Was there de-escalation of care discussed even if they declined (Discuss DNR or withdrawal of care, Hospice)? DNR status @ -No What co-morbidities impacted this encounter? (DM, HTN, Smoking, COPD, CAD, Cancer, CVA, ARF, Chemo, Hep., AIDS, mental health diagnosis, sleep apnea, morbid obesity)? @ -None Was patient admitted / discharged? Hospital course, mention meds given and route, prescriptions, significant lab abnormalities, going to OR and other pertinent info. @ -73-year-old male presents emergency department for symptoms of unstable angina/acute coronary syndrome. Normal EKG, stable vitals, negative troponin. Rest of labs unremarkable. Case discussed cardiology with plans to take patient to laboratory operations coordinator. Undiagnosed new problem with uncertain prognosis? @ -No Drug Therapy requiring intensive monitoring for toxicity (Heparin, Nitro, Insulin, Cardizem)? @ -No Were any procedures done? @ -No Diagnosis/symptom? Acute, or Chronic, or Acute on Chronic? Uncomplicated (without systemic symptoms) or Complicated (systemic symptoms)? @ -Unstable angina Side effects of treatment? @ -No Exacerbation, Progression, or Severe Exacerbation? @ -No Poses a threat to life or bodily function? How? (Chest pain, USA, VT, pneumonia, PE, COPD, DKA, ARF, appy, cholecystitis, CVA, Diverticulitis, Homicidal, Suicidal, threat to staff... and all critical care pts) @ -yes - Lab Data Result diagrams: 03/30/23 10:55 03/30/23 10:55 Lab Results 03/30/23 03/30/23 03/30/23 Range/Units 10:55 10:55 10:55 WBC 7.3 (3.8-10.6) k/uL RBC 5.49 (4.30-5.90) m/uL Hgb 17.5 (13.0-17.5) gm/dL Hct 52.3 (39.0-53.0) % MCV 95.3 (80.0-100.0) fL MCH 32.0 (25.0-35.0) pg MCHC 33.5 (31.0-37.0) g/dL RDW 13.4 (11.5-15.5) % Plt Count 210 (150-450) k/uL MPV 8.2 Neutrophils % 62 % Lymphocytes % 23 % Monocytes % 8 % Eosinophils % 3 % Basophils % 1 % Neutrophils # 4.6 (1.3-7.7) k/uL Lymphocytes # 1.7 (1.0-4.8) k/uL Monocytes # 0.6 (0-1.0) k/uL Eosinophils # 0.3 (0-0.7) k/uL Basophils # 0.0 (0-0.2) k/uL PT 10.0 (9.0-12.0) sec INR 0.9 (<1.2) APTT 22.6 (22.0-30.0) sec Sodium 137 (137-145) mmol/L Potassium 4.4 (3.5-5.1) mmol/L Chloride 105 (98-107) mmol/L Carbon Dioxide 22 (22-30) mmol/L Anion Gap 10 mmol/L BUN 15 (9-20) mg/dL Creatinine 0.79 (0.66-1.25) mg/dL Est GFR (CKD-EPI)AfAm >90 (>60 ml/min/1.73 sqM) Est GFR (CKD-EPI)NonAf >90 (>60 ml/min/1.73 sqM) Glucose 129 H (74-99) mg/dL Calcium 9.6 (8.4-10.2) mg/dL Magnesium 2.1 (1.6-2.3) mg/dL Total Bilirubin 1.0 (0.2-1.3) mg/dL AST 42 (17-59) U/L ALT 74 H (4-49) U/L Alkaline Phosphatase 63 (38-126) U/L Troponin I (0.000-0.034) ng/mL Total Protein 7.7 (6.3-8.2) g/dL Albumin 4.6 (3.5-5.0) g/dL 03/30/23 Range/Units 10:55 WBC (3.8-10.6) k/uL RBC (4.30-5.90) m/uL Hgb (13.0-17.5) gm/dL Hct (39.0-53.0) % MCV (80.0-100.0) fL MCH (25.0-35.0) pg MCHC (31.0-37.0) g/dL RDW (11.5-15.5) % Plt Count (150-450) k/uL MPV Neutrophils % % Lymphocytes % % Monocytes % % Eosinophils % % Basophils % % Neutrophils # (1.3-7.7) k/uL Lymphocytes # (1.0-4.8) k/uL Monocytes # (0-1.0) k/uL Eosinophils # (0-0.7) k/uL Basophils # (0-0.2) k/uL PT (9.0-12.0) sec INR (<1.2) APTT (22.0-30.0) sec Sodium (137-145) mmol/L Potassium (3.5-5.1) mmol/L Chloride (98-107) mmol/L Carbon Dioxide (22-30) mmol/L Anion Gap mmol/L BUN (9-20) mg/dL Creatinine (0.66-1.25) mg/dL Est GFR (CKD-EPI)AfAm (>60 ml/min/1.73 sqM) Est GFR (CKD-EPI)NonAf (>60 ml/min/1.73 sqM) Glucose (74-99) mg/dL Calcium (8.4-10.2) mg/dL Magnesium (1.6-2.3) mg/dL Total Bilirubin (0.2-1.3) mg/dL AST (17-59) U/L ALT (4-49) U/L Alkaline Phosphatase (38-126) U/L Troponin I <0.012 (0.000-0.034) ng/mL Total Protein (6.3-8.2) g/dL Albumin (3.5-5.0) g/dL Disposition Clinical Impression: Unstable angina Disposition: ADMITTED IP TO THIS [facility] Condition: Critical Referrals: Alexei Del Cid MD [Primary Care Provider] - 1-2 days Decision Time: 12:10
--- NOTE | 2023-03-30 11:41 | XR ---
EXAMINATION TYPE: XR chest 2V DATE OF EXAM: 03/30/2023 COMPARISON: 04/11/2019 HISTORY: Shortness of breath TECHNIQUE: Frontal and lateral views of the chest are obtained. FINDINGS: Scattered senescent parenchymal changes noted. Hyperinflation compatible with COPD. No evidence for infiltrate. No evidence for atelectasis. Heart size is stable. Mediastinal structures are stable and grossly unremarkable. No evidence for hilar prominence. Degenerative changes dorsal spine. IMPRESSION: 1. No evidence for acute pulmonary disease.
[2023-03-30] MEDS ORDERED: HEPARIN SODIUM 1,000 UN/ML (10ML VL) IV PRN (12:12)
[2023-03-30] MEDS ORDERED: HEPARIN SODIUM 1,000 UN/ML (10ML VL) IV ONE (12:12)
[2023-03-30] MEDS ORDERED: NITROGLYCERIN OINT 1 INCH/GM PACKET TOPICAL STA (12:12)
[2023-03-30] MEDS ORDERED: HEPARIN SOD,PORK IN 0.45% NACL 25,000 UNIT in 0.45% NACL 1 250ML.BAG IV SCH (12:15)
[2023-03-30] MEDS ORDERED: NITROGLYCERIN SL TABS 0.4 MG TAB SUBLINGUAL PRN (12:23)
--- NOTE | 2023-03-30 12:41 | P.CRDCN ---
History of Present Illness Consult date: 03/30/23 Chief complaint: Chest pain History of present illness: The patient is 73-year-old gentleman who is known to our service from before with a past medical history significant for coronary artery disease with prior stenting of the left circumflex as well as hypertension and dyslipidemia and also COPD presented to the emergency department complaining of chest discomfort. He was in his usual state of health until about 3 days ago when he started experiencing discomfort in the middle of the chest and across her chest as a pressure on the chest was no radiation but it was associated with shortness of breath. He decided to come for further evaluation. Currently he is having ongoing chest discomfort about 6/10 in intensity. No radiation to the arms or neck or shoulders or back andrelated symptoms of dizziness or lightheadedness or sweating or presyncope or syncope. He is currently uncomfortable. Vitals are stable. He underwent further investigation including EKG showing sinus mechanism was no significant ST or T-wave abnormalities. The first set of troponin came in to be unremarkable. The chest x-ray did not show any acute abnormalities. Giving the ongoing chest discomfort I advised the patient to undergo a coronary angiogram. The patient is in full understanding and agreement. Vital signs are stable He has a regular rate and rhythm He has mild bilateral expiratory wheezing No lower extremity edema noted Assessment Chest discomfort concerning for unstable angina Coronary artery disease with prior stenting of the left circumflex and known residual disease from 2019 Multiple risk factors including hypertension and dyslipidemia Plan Proceed with coronary angiogram giving the ongoing chest discomfort Follow-up with the patient Past Medical History Past Medical History: Coronary Artery Disease (CAD), Chest Pain / Angina, COPD, Hypertension Additional Past Medical History / Comment(s): diverticulitis,emphysema. shortness of breath History of Any Multi-Drug Resistant Organisms: None Reported Past Surgical History: Heart Catheterization With Stent, Hernia Repair, Orthopedic Surgery Additional Past Surgical History / Comment(s): lt shoulder and lt knee, colonoscopy 3 years ago with polypectomy, stent to CIRC on the 04/08/19 Past Anesthesia/Blood Transfusion Reactions: No Reported Reaction, Motion Sickness Date of Last Stent Placement:: 04/08/19 Past Psychological History: No Psychological Hx Reported Smoking Status: Former smoker - Past Family History Father Family Medical History: COPD, Myocardial Infarction ([place]) Additional Family Medical History / Comment(s): Father at age 72 from emphysema with history of a myocardial infarction in his 60s. Mother Family Medical History: No Reported History Additional Family Medical History / Comment(s): Mother in her 80s from old age. Sister(s) Additional Family Medical History / Comment(s): Patient has 6 sisters that are all . 2 were twins in motor vehicle accident. Others have from old age. No history of cancers. Patient does not have any brothers. Patient has 3 children, 2 boys and one girl with no major medical problems. Medications and Allergies Home Medications Medication Instructions Recorded Confirmed Type No Known Home Medications 12/28/20 01/02/21 History Allergies Allergy/AdvReac Type Severity Reaction Status Date / Time No Known Allergies Allergy Verified 01/02/21 11:45 Physical Exam Vitals: Vital Signs Temp Pulse Resp BP Pulse Ox 03/30/23 12:00 73 24 127/83 94 L 03/30/23 11:16 65 24 137/98 100 03/30/23 10:42 98 F 64 20 156/98 92 L Intake and Output 03/29/23 03/30/23 03/30/23 22:59 06:59 14:59 Other: Weight 120.656 kg Results 03/30/23 10:55 03/30/23 10:55 Cardiac Enzymes 03/30/23 03/30/23 Range/Units 10:55 10:55 AST 42 (17-59) U/L Troponin I <0.012 (0.000-0.034) ng/mL Coagulation 03/30/23 Range/Units 10:55 PT 10.0 (9.0-12.0) sec APTT 22.6 (22.0-30.0) sec CBC 03/30/23 Range/Units 10:55 WBC 7.3 (3.8-10.6) k/uL RBC 5.49 (4.30-5.90) m/uL Hgb 17.5 (13.0-17.5) gm/dL Hct 52.3 (39.0-53.0) % Plt Count 210 (150-450) k/uL Comprehensive Metabolic Panel 03/30/23 Range/Units 10:55 Sodium 137 (137-145) mmol/L Potassium 4.4 (3.5-5.1) mmol/L Chloride 105 (98-107) mmol/L Carbon Dioxide 22 (22-30) mmol/L BUN 15 (9-20) mg/dL Creatinine 0.79 (0.66-1.25) mg/dL Glucose 129 H (74-99) mg/dL Calcium 9.6 (8.4-10.2) mg/dL AST 42 (17-59) U/L ALT 74 H (4-49) U/L Alkaline Phosphatase 63 (38-126) U/L Total Protein 7.7 (6.3-8.2) g/dL Albumin 4.6 (3.5-5.0) g/dL Current Medications Generic Name Dose Route Start Last Admin Trade Name Freq PRN Reason Stop Dose Admin Aspirin 325 mg 03/31/23 09:00 Aspirin 325 Mg Tab PO DAILY [facility] Heparin Sodium (Porcine) 0 unit 03/30/23 12:12 Heparin Sodium 1,000 Un/Ml (10ml Vl) IV PER PROTOCOL PRN Low PTT Protocol Heparin Sodium/Sodium Chloride 250 mls @ 10.002 mls/hr 03/30/23 12:15 25,000 unit/ Sodium Chloride IV .Q24H [facility] Protocol 8.29 UNITS/KG/HR Nitroglycerin 0.4 mg 03/30/23 12:23 Nitroglycerin Sl Tabs 0.4 Mg Tab SUBLINGUAL Q5M PRN Chest Pain Intake and Output 03/29/23 03/30/23 03/30/23 22:59 06:59 14:59 Other: Weight 120.656 kg Patient Weight 03/31/23 06:59 Weight 120.656 kg 03/30/23 10:55 03/30/23 10:55
[2023-03-30] MEDS: SODIUM CHLORIDE 0.9% 1,000 ML IV SCH ×2 (13:16→17:16)
[2023-03-30] MEDS ORDERED: IV FLUID CONTINUATION 1,000 ML IV ONE (13:39)
[2023-03-30] MEDS ORDERED: MIDAZOLAM 2 MG/2 ML VIAL IV ONE (13:45)
[2023-03-30] MEDS ORDERED: LIDOCAINE 1% INJ 10MG/ML (5 ML VIAL-PF) SQ ONE (13:51)
[2023-03-30] MEDS ORDERED: VERAPAMIL SYRINGE (5 MG/10 ML) INTRAARTER ONE (13:53)
[2023-03-30] MEDS ORDERED: IOPAMIDOL-370 100ML BTL INJ ONE (14:02)
[2023-03-30] MEDS ORDERED: RX INFO: IV CONTRAST WAS GIVEN 1 EACH MISC MISCELLANE PRN (14:06)
--- NOTE | 2023-03-30 14:11 | P.PCN ---
Date of Procedure: 03/30/23 Operative Findings: CARDIAC CATHETERIZATION PERFORMING PHYSICIAN: Peter Christopher MD, RPVI PROCEDURE PERFORMED: 1. Selective right and left coronary angiogram 2. Left heart catheterization INDICATION: Unstable angina COMPLICATION: None APPROACH: Right radial artery LEVEL OF SEDATION: Moderate with a sedation length of 15 minutes PROCEDURE DESCRIPTION: After obtaining an informed consent, the patient was brought to cardiac computer lab aide. Local anesthesia was performed using lidocaine subcutaneously. The right radial artery was cannulated using Seldinger technique, the guidewire passed easily, following that we advanced a 5-Panamanian sheath dilator assembly, the wire and dilator were removed and sheath was flushed. Following that, 2 mg of verapamil intra-arterial Selective right and left coronary angiogram using a 6-Panamanian JR4 and JL 3.5 catheters. Following that we did left heart catheterization using 6-Panamanian pigtail catheter. The procedure was completed there was no complication. SELECTIVE CORONARY ANGIOGRAM: The right coronary artery: Large-caliber vessel and dominant vessel. The RCA has mild disease distally. Left main: Is angiographically normal. Bifurcates into an LCx and LAD The left circumflex: Large caliber vessel and on dominant vessel. The stent in the proximal LCx is patent. The mid circumflex has mild disease only The left anterior descending artery: Large-caliber vessel was mild disease in the midportion by the bifurcation of the diagonal branch. The LAD gives rises into multiple small diagonal branches HEMODYNAMICS: LVDP was about 12 mmHg was no significant gradient across aortic valve CONCLUSION: 1. Patent stent in the proximal LCx. 2. Disease involving the left coronary system POSTPROCEDURE MANAGEMENT: Medical treatment and follow-up with the patient
[2023-03-30] MEDS ORDERED: SODIUM CHLORIDE 0.9% 1,000 ML IV SCH (14:15)
[2023-03-30] MEDS ORDERED: HYDROcodone/APAP 5-325MG 1 EACH TAB PO PRN (16:43)
[2023-03-30] MEDS ORDERED: ONDANSETRON 4 MG/2 ML VIAL IVP PRN (16:43)
[2023-03-30] MEDS ORDERED: NALOXONE 0.4 MG/ML 1 ML VIAL IV PRN (16:43)
[2023-03-30] MEDS ORDERED: ALPRAZolam 0.25 MG TAB PO PRN (16:43)
[2023-03-30] MEDS ORDERED: MELATONIN 3 MG TABLET PO PRN (16:43)
[2023-03-30] MEDS ORDERED: predniSONE 20 MG TAB PO STA (16:45)
[2023-03-30] MEDS ORDERED: OXYMETAZOLINE 0.05% NASL SPRAY 1 SPRAY BOTTLE NASAL STA (16:45)
[2023-03-30] MEDS ORDERED: ALBUTEROL NEBULIZED 2.5 MG/3 ML INHALATION PRN (16:46)
--- NOTE | 2023-03-30 16:53 | P.HPIM ---
History of Present Illness H&P Date: 03/30/23 Patient is a 73-year-old male with a history of coronary artery disease status post stent, COPD, hypertension, and diverticulitis who presented to the hospital with complaints of chest pain. In the ER he underwent an extensive evaluation. His initial vital signs showed hypertension with blood pressure 156/98. Initial laboratory analysis was unremarkable. Initial troponin was negative. Initial EKG is reviewed by myself revealed sinus bradycardia without any significant ST-T wave changes. In the ER he had received a dose of nitro and aspirin. [facility]. Cath showed patent stent in the left circumflex with some disease involving the left coronary syndrome and medical management was recommended. Patient seen and examined at bedside. He reports that he has had constant chest pressure and shortness of breath for the last 5 days. The shortness of breath is worse with exertion but the chest pressure is not. He has had an intermittent left-sided headache but denies any nausea, numbness and tingling down into his arm or up into his jaw, diaphoresis. He also reports chronic feeling of phlegm being stuck in the back of his throat. That has been chronic for about 3 years. He denies any recent cough, cold, fever, flu. He reports that he has seen both Dr. Stewart and Dr. Vences on the past for pulmonary and has been diagnosed with COPD but none of his inhalers worked to fix it. He has also seen Dr. Almonte in the past who per the patient said there was nothing wrong. Vital signs reviewed General: nontoxic, no distress, appears at stated age Derm: warm, dry Eyes: EOMI, no lid lag, anicteric sclera, pupils equal round reactive to light ENT: Nose and ears atraumatic, no thrush, no pharyngeal erythema, + postnasal drip Cardiovascular: S1S2 reg, no murmur, positive posterior tibial pulse bilateral, Trace edema b/l LE, capillary refill less than 2 seconds Lungs: Diffuse wheezing bilateral bases, no rhonchi, no rales, no wheeze, no accessory muscle use Abdominal: soft, nontender to palpation, no guarding, no appreciable organomegaly, normal bowel sounds Ext: no gross muscle atrophy, muscle strength 5 out of 5 in all 4 extremities, no contractures Neuro: CN II-XII grossly intact, light touch intact all 4 extremities, finger to nose within normal limits, Psych: Alert, oriented, appropriate affect Assessment: Acute exacerbation of COPD ALLERGIC rhinitis Atypical chest pain, cath completed 03/30 and medical management suggested Hypertension Diverticulitis Obesity with BMI 37.1 Imaging: Chest x-rays reviewed by myself shows increased interstitial markings bilaterally Data Review: As per above in HPI Plan: -Cardiology recommendations appreciated: Medical management -Start prednisone 60 mg daily, DuoNeb scheduled 4 times daily and when necessary, Flonase, Afrin, obesity next 600 mg twice daily -Resume home Lipitor. - Aspirin 81 mg daily - check COVID test The patient is admitted with an anticipated greater than 2 midnight stay for evaluation of Chest pain. DVT prophylaxis: SCDs Discussed with: Patient, nursing Anticipated discharge date: pending clinical course Anticipated discharge place: pending clinical course This dictation was prepared using [employer] voice recognition software. Though every attempt is made to correct errors during during dictation some may still exist. Past Medical History Past Medical History: Coronary Artery Disease (CAD), Chest Pain / Angina, COPD, Hypertension Additional Past Medical History / Comment(s): diverticulitis,emphysema. shortness of breath History of Any Multi-Drug Resistant Organisms: None Reported Past Surgical History: Heart Catheterization With Stent, Hernia Repair, Orthopedic Surgery Additional Past Surgical History / Comment(s): lt shoulder and lt knee, colonoscopy 3 years ago with polypectomy, stent to CIRC on the 04/08/19 Past Anesthesia/Blood Transfusion Reactions: No Reported Reaction, Motion Sickness Date of Last Stent Placement:: 04/08/19 Past Psychological History: No Psychological Hx Reported Additional Psychological History / Comment(s): Pt resides with his spouse. He is independent. Smoking Status: Former smoker Past Alcohol Use History: Daily Additional Past Alcohol Use History / Comment(s): quit smoking 2015,Patient was a smoker one pack per day for 40 years . Patient normally drinks 2-4 beers per day but has decreased over the past month. Past Drug Use History: None Reported - Past Family History Father Family Medical History: COPD, Myocardial Infarction ([place]) Additional Family Medical History / Comment(s): Father at age 72 from emphysema with history of a myocardial infarction in his 60s. Mother Family Medical History: No Reported History Additional Family Medical History / Comment(s): Mother in her 80s from old age. Sister(s) Additional Family Medical History / Comment(s): Patient has 6 sisters that are all . 2 were twins in motor vehicle accident. Others have from old age. No history of cancers. Patient does not have any brothers. Patient has 3 children, 2 boys and one girl with no major medical problems. Medications and Allergies Home Medications Medication Instructions Recorded Confirmed Type Aspirin EC [Ecotrin Low Dose] 81 mg PO HS 03/30/23 03/30/23 History Atorvastatin [Lipitor] 80 mg PO HS 03/30/23 03/30/23 History Multivit-Min/FA/Lycopen/Lutein 1 tab PO HS 03/30/23 03/30/23 History [Centrum Silver Men Tablet] Allergies Allergy/AdvReac Type Severity Reaction Status Date / Time No Known Allergies Allergy Verified 03/30/23 12:44 Physical Exam Osteopathic Statement: *. No significant issues noted on an osteopathic structural exam other than those noted in the History and Physical/Consult. Vitals: Vital Signs Temp Pulse Pulse Resp BP BP Pulse Ox 03/30/23 15:20 59 L 16 147/90 95 03/30/23 15:02 64 22 148/79 98 03/30/23 14:47 60 22 125/76 98 03/30/23 14:32 64 22 139/81 98 03/30/23 14:23 64 22 129/83 98 03/30/23 13:19 65 22 131/84 97 03/30/23 12:00 73 24 127/83 94 L 03/30/23 11:16 65 24 137/98 100 03/30/23 10:42 98 F 64 20 156/98 92 L Intake and Output 03/30/23 03/30/23 03/30/23 06:59 14:59 22:59 Intake Total 50 Balance 50 Intake: IV 50 Other: Weight 120.656 kg 120.656 kg Results CBC & Chem 7: 03/30/23 10:55 03/30/23 10:55 Labs: Abnormal Lab Results - Last 24 Hours (Table) 03/30/23 Range/Units 10:55 Glucose 129 H (74-99) mg/dL ALT 74 H (4-49) U/L Thrombosis Risk Factor Assmnt - Choose All That Apply Each Factor Represents 1 point: Abnormal pulmonary function (COPD) Each Risk Factor Represents 2 Points: Age 61-74 years Thrombosis Risk Factor Assessment Total Risk Factor Score: 3 Thrombosis Risk Factor Assessment Level: Moderate Risk
[2023-03-30] MEDS ORDERED: FLUTICASONE 50MCG/SPRAY NASAL 16GM EA NOSTRIL SCH (17:00)
[2023-03-30] MEDS: guaiFENesin 600 MG TABLET.ER PO SCH (21:07)
[2023-03-30] MEDS: IPRATROPIUM-ALBUTEROL 3 ML NEB INHALATION SCH ×2 (21:15→23:01)
[2023-03-31] MEDS: IPRATROPIUM-ALBUTEROL 3 ML NEB INHALATION SCH ×5 (03:38→15:06)
[2023-03-31 05:07] VITALS: TEMP 97.3
[2023-03-31] MEDS ORDERED: ASPIRIN 325 MG TAB PO SCH (09:00)
[2023-03-31] MEDS ORDERED: predniSONE 20 MG TAB PO SCH (09:00)
[2023-03-31] MEDS ORDERED: ASPIRIN 81 MG PO SCH (09:00)
[2023-03-31 09:02] VITALS: RESP 18
[2023-03-31] MEDS: guaiFENesin 600 MG TABLET.ER PO SCH (09:03)
--- NOTE | 2023-03-31 10:18 | P.PN ---
Subjective Progress Note Date: 03/31/23 History of present illness: The patient is 73-year-old gentleman who is known to our service from before w ith a past medical history significant for coronary artery disease with prior stenting of the left circumflex as well as hypertension and dyslipidemia and also COPD presented to the emergency department complaining of chest discomfort. He was in his usual state of health until about 3 days ago when he started experiencing discomfort in the middle of the chest and across her chest as a pressure on the chest was no radiation but it was associated with shortness of breath. He decided to come for further evaluation. Currently he is having ongoing chest discomfort about 6/10 in intensity. No radiation to the arms or neck or shoulders or back andrelated symptoms of dizziness or lightheadedness or sweating or presyncope or syncope. He is currently uncomfortable. Vitals are stable. He underwent further investigation including EKG showing sinus mechanism was no significant ST or T-wave abnormalities. The first set of troponin came in to be unremarkable. The chest x-ray did not show any acute abnormalities. Giving the ongoing chest discomfort I advised the patient to undergo a coronary angiogram. The patient is in full understanding and agreement. 03/31 Patient underwent left heart catheterization which revealed patent stent in the proximal LCx mild disease in the left coronary system. Recommendations for medical management. Patient states he has some chest pain today and noted to have wheezing. Patient is being treated for COPD exacerbation. Blood pressure 147/79, heart rate in the 70s, pulse ox 95% on 2 L. telemetry monitor is sinus rhythm. Physical exam: Vital signs are stable He has a regular rate and rhythm He has mild bilateral expiratory wheezing No lower extremity edema noted Assessment Chest discomfort noncardiac, ruled out by cardiac catheterization Coronary artery disease with prior stenting of the left circumflex and known residual disease from 2019 Multiple risk factors including hypertension and dyslipidemia Plan Continue patient's current cardiac medications. From a cardiology perspective, patient is cleared for discharge home and may follow up with Dr. Christopher in the office. Nurse practitioner note has been reviewed, I agree with documented findings and plan of care. Patient was seen and examined. Objective - Vital Signs Vital signs: Vital Signs Temp 97.3 F L 03/31/23 05:06 Pulse 67 03/31/23 05:06 Resp 20 03/31/23 05:06 BP 126/86 05/23/23 05:06 Pulse Ox 97 03/31/23 05:06 FiO2 Intake & Output 03/30/23 03/31/23 03/31/23 18:59 06:59 18:59 Intake Total 230 800 Balance 230 800 Weight 120.656 kg Intake: IV 50 Intake, IV Titration 600 Amount Sodium Chloride 0.9% 1, 600 000 ml @ 75 mls/hr IV . [id number] [facility] Rx#:[id number] Oral 180 200 Other: # Voids 1 1 - Labs CBC & Chem 7: 03/30/23 10:55 03/30/23 10:55 Labs: Abnormal Lab Results - Last 24 Hours (Table) 03/30/23 Range/Units 10:55 Glucose 129 H (74-99) mg/dL ALT 74 H (4-49) U/L
[2023-03-31 11:04] LABS: LDL Cholesterol,Calculated 63.6 mg/dL (0.0-131.0)
--- NOTE | 2023-03-31 11:08 | XR ---
EXAMINATION TYPE: XR chest 1V portable DATE OF EXAM: 03/31/2023 10:57 AM COMPARISON: 03/30/2023 TECHNIQUE: XR chest 1V portable Frontal view of the chest. CLINICAL INDICATION:Male, 73 years old with history of SOB; FINDINGS: Lungs/Pleura: Prominent interstitial lung markings are seen scattered throughout the lungs. No eviden ce of focal consolidation, pneumothorax or pleural effusion. Pulmonary vascularity: Unremarkable. Heart/mediastinum: Cardiomediastinal silhouette is unremarkable. Musculoskeletal: No acute osseous pathology. IMPRESSION: No acute cardiopulmonary disease/process.
--- NOTE | 2023-03-31 12:38 | P.DS ---
Providers Date of admission: 03/30/23 12:41 Expected date of discharge: 03/31/23 Attending physician: Radha Song DO Consults: 03/30/23 12:23 Consult Physician Urgent Consulting Provider: Peter Christopher Consult Reason/Comments: acs Do you want consulting provider notified?: Already Contacted Primary care physician: Alexei Del Cid Hospital Course: Discharge Diagnosis: Acute exacerbation of COPD ALLERGIC rhinitis Atypical chest pain, cath completed 03/30 and medical management suggested Hypertension Obesity with BMI 37.1 Hospital Course: 73-year-old male with a history of coronary artery disease status post stent, COPD, hypertension, and diverticulitis who presented to the hospital with complaints of chest pain. His initial vital signs showed hypertension with blood pressure 156/98. Initial laboratory analysis was unremarkable. Initial troponin was negative. Initial EKG revealed sinus bradycardia without any significant ST-T wave changes. Cardiac cath showed patent proximal left circumflex stent, disease involving the left coronary system. Patient to be discharge home with follow-up with cardiology. Also being sent home with oral prednisone and bronchodilators. Patient seen and examined at bedside. Vital signs reviewed and stable. General: nontoxic, no distress, appears at stated age, obese Derm: warm, dry Head: atraumatic, normocephalic, symmetric Eyes: EOMI, no lid lag, anicteric sclera Mouth: no lip lesion, mucus membranes moist Cardiovascular: S1S2 reg, no murmur Lungs: CTA bilateral, no rhonchi, no rales , no accessory muscle use Abdominal: soft, nontender to palpation, no guarding, no appreciable organomegaly Ext: no gross muscle atrophy, no edema, no contractures Neuro: CN II-XI grossly intact, no focal neuro deficits Psych: Alert, oriented, appropriate affect A total of 33 minutes of time were spent preparing this complex discharge summary. Patient was discharged on 03/31/23 at 1237. Patient Condition at Discharge: Stable Plan - Discharge Summary Discharge Rx Participant: No New Discharge Prescriptions: New Albuterol Inhaler [Ventolin Hfa Inhaler] 1 puff INHALATION TID #8 gm Fluticasone Nasal [place] [Flonase Nasal [place]] 2 spray EA NOSTRIL DAILY #14 ml guaiFENesin [Mucinex] 600 mg PO Q12HR PRN #30 tab PRN Reason: Cough Tiotropium 18 Mcg/Puff [Spiriva] 1 puff INHALATION DAILY #30 each predniSONE [Deltasone] 40 mg PO DAILY #8 tab Continue Aspirin EC [Ecotrin Low Dose] 81 mg PO HS Atorvastatin [Lipitor] 80 mg PO HS Discontinued Multivit-Min/FA/Lycopen/Lutein [Centrum Silver Men Tablet] 1 tab PO HS Discharge Medication List Aspirin EC [Ecotrin Low Dose] 81 mg PO HS 03/30/23 [History] Atorvastatin [Lipitor] 80 mg PO HS 03/30/23 [History] Albuterol Inhaler [Ventolin Hfa Inhaler] 1 puff INHALATION TID #8 gm 03/31/23 [Rx] Fluticasone Nasal [place] [Flonase Nasal [place]] 2 spray EA NOSTRIL DAILY #14 ml 03/31/23 [Rx] Tiotropium 18 Mcg/Puff [Spiriva] 1 puff INHALATION DAILY #30 each 03/31/23 [Rx] guaiFENesin [Mucinex] 600 mg PO Q12HR PRN #30 tab 03/31/23 [Rx] predniSONE [Deltasone] 40 mg PO DAILY #8 tab 03/31/23 [Rx] Follow up Appointment(s)/Referral(s): Peter Christopher MD [STAFF PHYSICIAN] - 2 Weeks Alexei Del Cid MD [Primary Care Provider] - 1-2 days Patient Instructions/Handouts: COPD (Chronic Obstructive Pulmonary Disease) (DC) Activity/Diet/Wound Care/Special Instructions: Please follow up with Cardiology and PCP. Discharge Disposition: HOME SELF-CARE
[2023-03-31 12:39] VITALS: BP 140/73; PULSE 88
== END 2023-03-31 15:05 | disposition home or self-care (01) ==
LOC: EC 10:40 → 3SCARD 12:41
PROVIDERS: ADMIT Internal Medicine; ATTEND Internal Medicine
DX: J43.9 Emphysema, unspecified (principal); J30.9 Allergic rhinitis, unspecified; R07.89 Other chest pain; I25.110 Atherosclerotic heart disease of native coronary artery with unstable angina pectoris; E66.9 Obesity, unspecified; I10 Essential (primary) hypertension; R00.1 Bradycardia, unspecified; F10.90 Alcohol use, unspecified, uncomplicated; E78.5 Hyperlipidemia, unspecified; Z87.891 Personal history of nicotine dependence; Z95.5 Presence of coronary angioplasty implant and graft; Z82.49 Family history of ischemic heart disease and other diseases of the circulatory system; Z82.5 Family history of asthma and other chronic lower respiratory diseases; Z63.4 Disappearance and death of family member; Z79.82 Long term (current) use of aspirin; Z68.37 Body mass index [BMI] 37.0-37.9, adult; Z79.899 Other long term (current) drug therapy; Z20.822 Contact with and (suspected) exposure to COVID-19
CPT/HCPCS: 96374; 99285; 36415; 94640 ×4; 94760; 93005; 93458; 80061; 80053; 83735; 84484; 85025; 85610; 85730; 87636; 71045; 71046; G0378 ×2; C1769; C1894; J2250; J2001; J1644; J7512 ×2; Q9967

== ENCOUNTER → 2025-05-25 | Outpatient (CLI) | payer MEDICARE ==
--- NOTE | 2025-05-25 10:23 | FL ---
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 A total of 56 second s of fluoroscopic time was utilized during procedure and 21 images obtained. Total dose area product (DAP) in uGy*m?, mGy*cm? (or similar) Not provided. COMPARISON: None FINDINGS: There is no evidence of obstruction. No intraluminal filling defect. Prominent cricopharyng eus muscle incidentally noted. Degenerative change cervical spine. There are tertiary contractions of the esophagus and a tiny hiatal hernia with mild gastroesophageal reflux. IMPRESSION: 1. Tiny hiatal hernia with mild gastroesophageal reflux. 2. Tertiary contractions of esophagus. Correlate for dysmotility. [facility], , 05/25/2025 10:21 AM
== END | disposition home or self-care (01) ==
LOC: RADFLMAIN 09:09
PROVIDERS: ATTEND Surgery Plastic and Reconstructive Surgery
DX: K44.9 Diaphragmatic hernia without obstruction or gangrene (principal); K21.9 Gastro-esophageal reflux disease without esophagitis
CPT/HCPCS: 74220